=== PATIENT | female | born 1950 | race Caucasian/White ===

== ENCOUNTER 2018-05-10 06:21 | Day surgery (SDC) | payer MEDICARE, MEDICAID ==
--- NOTE | 2018-05-04 13:57 | HP ---
PREOPERATIVE HISTORY AND PHYSICAL: DATE OF ADMISSION/SURGERY: 05/10/18 [facility] DATE OF OFFICE VISIT/ENCOUNTER: 04/20/18 ATTENDING SURGEON: Yaneth Talavera MD.* (DICTATED BY DELLA MCMAHAN) PROCEDURE: Excision of mass, left thumb. CHIEF COMPLAINT: Mass, left thumb. HISTORY OF PRESENT ILLNESS: This is a 67-year-old female that complains of a lump on her left thumb that she noticed about a week ago. She says it is very painful. She rates the pain as 9/10, especially when she touches it. There was no injury that she recalls and she denies any tingling or numbness associated with it. She has not had any breaks in her skin. The cyst is very painful and she would like to have it removed surgically. The patient has AFib and is on Eliquis. She will remain on Eliquis throughout the perioperative period. She also has a history of Lxhiueg-Wbpft-Nwizm disease and takes Percocet 5/325 about 4 times a day. This was prescribed by Dr. Edwards. We will get Cardiology clearance from Dr. Guillermo prior to proceeding with surgical intervention. PAST MEDICAL HISTORY: 1. Hghsxvd-Xpdic-Rdkrw disease. 2. History of Graves' disease. 3. Hypothyroidism secondary to Graves' disease. 4. Atrial fibrillation. 5. Hypertension. 6. History of congestive heart failure. 7. Mitral valve disease. PAST SURGICAL HISTORY: 1. Appendectomy. 2. Oophorectomy. 3. . 4. Lumbar spine surgery. 5. Bilateral elbow lateral release. 6. Thyroidectomy. 7. Rotator cuff repair, right shoulder. 8. Tonsillectomy. 9. Nerve removed from right ankle. 10. Cosmetic orbital surgery. CURRENT MEDICATIONS: 1. Atenolol 25 mg daily. 2. Eliquis 5 mg twice a day. 3. Levothyroxine sodium 88 mcg daily. 4. Metamucil-Free and natural 43%, one tablespoon daily p.r.n. 5. Oxycodone/acetaminophen 5/325, two tabs b.i.d. 6. Potassium chloride ER 20 mEq, 2 tabs daily. 7. Torsemide 10 mg, 1 tab 4 to 5 times a week. 8. Vitamin B12 1000 mcg daily. 9. Vitamin D 50,000 units q. month. 10. Voltaren 1%, apply to affected area 3 times a day p.r.n. ALLERGIES: CAMPHOR, LATEX, COUGH SYRUPS, DILAUDID, LISINOPRIL, MOTHBALLS, PENICILLINS. FAMILY MEDICAL HISTORY: Cancer. SOCIAL HISTORY: The patient is disabled. She is a former smoker, she quit 7 years ago. Prior to that she smoked a pack per day since 1968. She denies recreational drug use. She drinks alcohol on occasion. 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 She also has atrial fibrillation. Review of systems is otherwise negative for cephalic, cardiovascular, respiratory, GI, , other musculoskeletal, skin, neurologic, endocrine, and hematologic symptoms. Infectious Disease: Negative for MRSA, hepatitis C, HIV. PHYSICAL EXAMINATION GENERAL: Well-developed, well-nourished 67-year-old female, in no acute distress. VITAL SIGNS: Height 5 feet 3 inches, weight 173 pounds. Blood pressure 134/80 , pulse rate 86. HEENT: Normocephalic, atraumatic. Pupils are equal, round, and reactive to light and accommodation. Extraocular movements are intact. Throat is clear. NECK: Supple. No palpable lymph nodes. PULMONARY: Lungs are clear to auscultation bilaterally. No wheezes, rales, or rhonchi. CARDIOVASCULAR: Regular rate and rhythm. S1, S2. No murmurs, rubs, or gallops. No edema. ABDOMEN: Positive bowel sounds. Soft, nontender. NEUROLOGICAL: Alert and oriented x3. Cranial nerves II through XII are intact. MUSCULOSKELETAL: On exam of her left thumb, there is a very tender mass overlying the proximal phalanx, between the IP and MP flexion creases. It is very tender to palpation. There is a negative Tinel's sign associated with it. She has good range of motion of her thumb at all 3 joints. Skin is intact. Neurovascular function is intact. IMAGING STUDIES: X-rays of her left thumb, AP, lateral, and oblique, show no bony abnormality. ASSESSMENT: Left thumb mass. PLAN: The patient is scheduled to undergo an excision mass, left thumb, with Dr. Talavera on 05/10/18. She will return to the office 10 days postop for followup and suture removal. She has Percocet as prescribed by Dr. Edwards that she will plan on using for postoperative pain management. DELLA MCMAHAN [id number]/[facility] #: [id number] MTDD
[~2018-05-10 06:21] MED LIST: Buffered Lidocaine 0.9% SYRIN* 5 ML/SYR SYRINGE INTRADERM ONE; Lactated Ringers 1000 ML Bag* 1,000 ML IV SCH
[2018-05-10] MEDS ORDERED: Lidocaine 1% INJ* 10 MG/ML 30 ML SDV ONE (07:24)
[2018-05-10] MEDS ORDERED: Midazolam* 1 MG/ML 2 ML VIAL (2 MG) ONE (07:37)
[2018-05-10] MEDS ORDERED: fentaNYL* 50 MCG/ML 2 ML VIAL (100 MCG VIAL) ONE (07:37)
[2018-05-10] MEDS ORDERED: Propofol* 10 MG/ML 20 ML BTL ONE (07:39)
[2018-05-10] MEDS ORDERED: Lidocaine 2% PF * 5 ML VIAL ONE (07:39)
[2018-05-10] MEDS ORDERED: Naloxone* 0.4 MG/ML 1 ML VIAL IV PRN (07:46)
[2018-05-10 08:32] VITALS: BP 108/52
--- NOTE | 2018-05-10 11:53 | OP ---
DATE OF OPERATION: 05/10/18 [facility] DATE OF : 54 SURGEON: Yaneth Talavera MD EMAIL MARKETING PROCESSOR: DELLA Henning. ANESTHESIA: Local MAC PRE-OP DIAGNOSIS: Left thumb mass. POST-OP DIAGNOSIS: Left thumb mass. OPERATIVE PROCEDURE: Removal of left thumb mass. ESTIMATED BLOOD LOSS: Zero. TOURNIQUET TIME: About 10 minutes INDICATIONS FOR PROCEDURE: Krysta is a 67-year-old female with a painful mass on her left thumb. She presents for removal. DESCRIPTION OF PROCEDURE: The patient was brought to the operating room, was given a sedation anesthetic and a digital block with 10 cc of 1% plain lidocaine. The skin of her left thumb and hand area was prepped and draped in the usual sterile fashion. Hand and forearm were exsanguinated and the tourniquet elevated to 250 mmHg. A diagonal incision was made, centered over the mass. We dissected bluntly through the subcutaneous tissue. The mass was not adherent to any of the surrounding tissue and was easily removed. It appeared to be a hemangioma and was sent for pathology. The wound was irrigated and skin edges reapproximated with 4-0 nylon suture. The wound was dressed with Xeroform, 4x4, Webril, and Maurice wrap. The patient tolerated the procedure well and was brought to the recovery room in good condition. [id number]/[facility] #: [id number] MTDD
== END 2018-05-10 08:28 | disposition home or self-care (01) ==
LOC: OREAST 06:21
PROVIDERS: ATTEND Orthopaedic Surgery
DX: R22.32 Localized swelling, mass and lump, left upper limb (principal); G60.0 Hereditary motor and sensory neuropathy; E03.8 Other specified hypothyroidism; I48.91 Unspecified atrial fibrillation; Z79.01 Long term (current) use of anticoagulants; I10 Essential (primary) hypertension; I34.9 Nonrheumatic mitral valve disorder, unspecified; Z87.891 Personal history of nicotine dependence
CPT/HCPCS: 88305; J2250; J2704; J3010

== ENCOUNTER 2019-08-15 17:18 | Emergency (ER) | payer MEDICARE, MEDICAID ==
--- NOTE | 2019-08-15 17:39 | ED ---
Abdominal Pain/Female - HPI Summary HPI Summary: 69 y/o F with hx diverticulitis and significant medication allergies presenting with severe, dull, LLQ abdominal pain that is worse with movement starting 3 days ago. She denies diarrhea. She reports abnormal bowel movements. She has been having small, soft bowels when she usually has large ones. Patient had an episode of diverticulitis back in May 2019. She was admitted and given Levaquin but had an allergic reaction. She went to the wall attendant in Jun 2019 and was told she isn't allergic to Flagyl. She reports an allergy to penicillin when she was 7 years old. She is followed by GI Dr. Bonilla. Patient's PCP Dr. Edwards called Dr. Bonilla's office and spoke with Dr. Butt who discussed with GI in [place] who recommended possibly Bactrim and clindamycin given her multiple allergies. Patient reporting severe pain so she was told to go to ER. She had labs and CT scan done today. Medications reviewed. Allergies reviewed. - History of Current Complaint Chief Complaint: EDAbdPain Stated Complaint: DIVERTICULITIS PER PT Time Seen by Provider: 08/15/19 17:26 Hx Obtained From: Patient, Medical Records, Other: - PCP Onset/Duration: Lasting Days - 3, Still Present Timing: Constant Severity Currently: Severe Pain Intensity: 9 Pain Scale Used: 0-10 Numeric Location: Discrete At: LLQ Character: Dull Aggravating Factor(s): Nothing Alleviating Factor(s): Nothing Associated Signs and Symptoms: Negative: Diarrhea Allergies/Adverse Reactions: Allergies Allergy/AdvReac Type Severity Reaction Status Date / Time camphor Allergy ANAPHYLACTI Verified 08/15/19 17:47 C dextromethorphan Allergy Altered Verified 08/15/19 17:47 Mental Status hydromorphone [From Dilaudid] Allergy See Comment Verified 08/15/19 17:47 latex Allergy ITCHY RASH Verified 08/15/19 17:47 levofloxacin Allergy Anaphylatic Verified 08/15/19 17:47 Shock lisinopril Allergy Coughing Verified 08/15/19 17:47 Penicillins Allergy Unknown Verified 08/15/19 17:47 Reaction Details ALL COUGH SYRUP Allergy HALLUCINATING, Uncoded 08/15/19 17:47 ROCKING AND GRINDING TEETH MOTH BALLS Allergy ANAPHYLACTIC Uncoded 08/15/19 17:47 SHOCK Home Medications: Home Medications Atenolol TAB* [Tenormin TAB*] 25 mg PO QPM 04/27/14 [History Confirmed 08/15/19] Levothyroxine TAB* [Synthroid TAB*] 88 mcg PO QAM 08/12/15 [History Confirmed ] Diclofenac Sodium [Voltaren] 1 applic TOPICAL BID PRN 01/27/18 [History Confirmed 08/15/19] Apixaban* [Eliquis*] 5 mg PO 0800,199905/03/18 [History Confirmed 08/15/19] Psyllium Husk/Aspartame [Metamucil Powder] 1 teasp PO QPM 05/03/18 [History Confirmed 08/15/19] Torsemide TAB* [Demadex*] 10 mg PO DAILY PRN 05/03/18 [History Confirmed ] Cholecalciferol (Vitamin D3) [Vitamin D3] 50,000 unit PO MONTHLY 09/20/18 [ History Confirmed 08/15/19] Cyanocobalamin TAB* [Vitamin B12 TAB*] 1,000 mcg PO DAILY 09/20/18 [History Confirmed 08/15/19] oxyCODONE/Acetamin 5/325 MG* [Percocet 5/325 TAB*] 1 tab PO Q8HR PRN 09/20/18 [ History Confirmed 08/15/19] Diltiazem TAB* [Cardizem 30 MG Tab*] 30 mg PO QAM 08/15/19 [History Confirmed ] Potassium Chlor TAB* [Klor Con ER TAB*] 40 meq PO BEDTIME 08/15/19 [History Confirmed 08/15/19] Sulfamethox/Trimethoprim DS* [Bactrim DS 800/160 TAB*] 1 tab PO BID 7 Days #14 tab 08/15/19 [Rx] clindamycin HCL [Clindamycin HCl] 450 mg PO TID 7 Days #63 capsule 08/15/19 [Rx] PMH/Surg Hx/FS Hx/Imm Hx Endocrine/Hematology History: Reports: Hx Thyroid Disease - HX OF SEVERE GRAVE' S DISEASE- THYROID TOXICOSIS- STATES HAD SURGERY FOR Denies: Hx Diabetes Cardiovascular History: Reports: Hx Congestive Heart Failure - X 1 -RELATED TO THYROID STORM IN ~2013, Hx Hypertension - ON MEDICATION FOR, Hx Valvular Heart Disease - "LEAKY VALVES", Other Cardiovascular Problems/Disorders - DR. 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 Denies: Hx Rheumatoid Arthritis, Hx Osteoporosis Sensory History: Reports: Hx Contacts or Glasses - GLASSES Opthamlomology History: Reports: Hx Contacts or Glasses - GLASSES Neurological History: Reports: Hx Nerve Disease - AWNRDLE-XGOTY-XIIVP DISEASE, Other Neuro Impairments/Disorders - BLQFKGL-RWYTA-AKEXP DISEASE Psychiatric History: Reports: Hx Depression - OFF AND ON- NO MEDICATION FOR AT THIS TIME - Cancer History Cancer Type, Location and Year: basal cell carcinoma Hx Chemotherapy: No Hx Radiation Therapy: No - Surgical History Surgery Procedure, Year, and Place: 08/07 AND 10/2017 - EYELID FOR GRAVES OPTIMOPATHY. Rt OVARY & FALLOPIAN TUBE REMOVED - CYST;. APPENDECTOMY;. 2/3 Lt OVARY REMOVED- CYST 2/3rds REMOVED;. C SECTION;. NERVE- REMOVED- RT INNER FOOT - (FOR DX OF NEURO MUSCULAR DISORDER known as Charcot Wendy Tooth Disease); . LSP - RUPTURED DISC REPAIR;. ANGEL ARMS- FOR TENNIS ELBOW;. TONSILECTOMY;. COMPLETE THYROIDECTOMY IN 2014;. basal cell ca removed from face. 2001 - Rt BREAST BIOSPY -BENIGN (NO CLIPS PLACED). 2013 Rt SHOULDER - RCT Hx Anesthesia Reactions: No - Immunization History Date of Tetanus Vaccine: unknown Date of Influenza Vaccine: [id number] Infectious Disease History: No Infectious Disease History: Denies: Traveled Outside the [place] in Last 30 Days - Family History Known Family History: Negative: Cardiac Disease, Diabetes Family History: Cancer - Social History Alcohol Use: Occasionally Alcohol Amount: 0-2 DRINKS WEEKLY Substance Use Type: Reports: None Hx Tobacco Use: Yes Smoking Status (MU): Former Smoker Type: Cigarettes Amount Used/How Often: 1 PPD X 40+ YEARS Length of Time of Smoking/Using Tobacco: 45 YEARS Have You Smoked in the Last Year: No Review of Systems Negative: Fever Positive: Abdominal Pain, Other - abnormal bowel movements. Negative: Diarrhea All Other Systems Reviewed And Are Negative: Yes Physical Exam - Summary Physical Exam Summary: Constitutional: Well-developed, Well-nourished, Alert. (-) Distressed Skin: Warm, Dry HENT: Normocephalic; Atraumatic Eyes: Conjunctiva normal Neck: Musculoskeletal ROM normal neck. (-) JVD, (-) Stridor, (-) Nuchal rigidity Cardio: Rhythm regular, tachycardic, Heart sounds normal; Intact distal pulses; Radial pulses are 2+ and symmetric. (-) Murmur Pulmonary/Chest wall: Effort normal. (-) Respiratory distress, (-) Wheezes, (-) Rales Abd: Soft, LLQ tenderness, (-) Distension, (-) Guarding, (-) Rebound Musculoskeletal: (-) Edema Lymph: (-) Cervical adenopathy Neuro: Alert, Oriented x3 Psych: Mood and affect Normal Triage Information Reviewed: Yes Vital Signs On Initial Exam: Initial Vitals Temp Pulse Resp BP Pulse Ox 98.3 F 117 19 117/81 97 08/15/19 17:20 08/15/19 17:20 08/15/19 17:20 08/15/19 17:20 08/15/19 17:20 Vital Signs Reviewed: Yes Procedures - Sedation Patient Received Moderate/Deep Sedation with Procedure: No Diagnostics - Vital Signs Vital Signs Temp Pulse Resp BP Pulse Ox 08/15/19 17:20 98.3 F 117 19 117/81 97 - Laboratory Lab Statement: Any lab studies that have been ordered have been reviewed, and results considered in the medical decision making process. Abdominal Pain Fem Course/Dx - Course Course Of Treatment: 69 y/o F w diverticulitis presents with abdominal pain. - d/w her PCP Dr. Edwards, the patient evaluated secondary to pain. CT shows a, located over cellulitis. Dr. Edwards spoke with GI who recommended clindamycin and Bactrim. She was offered PO dose of Augmentin here but declined secondary to unknown penicillin allergy. Patient is well-appearing, tolerating by mouth, afebrile. Patient tolerating PO and well appearing so can go home on oral abx, given first dose here. - Diagnoses Provider Diagnoses: Diverticulitis Discharge ED - Sign-Out/Discharge Documenting (check all that apply): Patient Departure - Discharge Plan Condition: Stable Disposition: HOME Prescriptions: clindamycin HCL [Clindamycin HCl] 450 mg PO TID 7 Days #63 capsule Sulfamethox/Trimethoprim DS* [Bactrim DS 800/160 TAB*] 1 tab PO BID 7 Days #14 tab Patient Education Materials: Diverticulitis (ED) Referrals: Marlin Edwards MD [Primary Care Provider] - Additional Instructions: You were seen in the emergency department for diverticulitis. Please take Bactrim twice a day for 7 days. Please take clindamycin 3 times a day for 7 days. Please follow up with GI. Please follow up with your primary care doctor in next 2-3 days and return to emergency department for worsening pain, fevers, inability to eat or drink, or concerning symptoms. It was a pleasure taking care of you today. - Billing Disposition and Condition Condition: STABLE Disposition: Home - Attestation Statements Document Initiated by Fred: Yes Documenting Scribe: Eun Anderson Provider For Whom Fred is Documenting (Include Credential): Leo Rodrigues MD Scribe Attestation: IEun, scribed for Leo Rodrigues MD on 08/15/19 at 2002. Scribe Documentation Reviewed: Yes Provider Attestation: The documentation as recorded by the Eun degroot accurately reflects the service I personally performed and the decisions made by Leo pride MD Status of Scribe Document: Viewed
[2019-08-15] MEDS ORDERED: Amoxicillin/Clavulanate TAB* 875 MG PO ONE (17:45)
[2019-08-15] MEDS ORDERED: Clindamycin CAP* 150 MG PO ONE (18:12)
[2019-08-15] MEDS ORDERED: Sulfamethox/Trimethoprim DS 800/160* TAB PO ONE (18:12)
--- OUTSIDE RECORDS SUMMARY | 2019-08-15 18:25 | XMS REPORT | Continuity of Care Document ---
:1950 External Reference #:[id number] Author Name Destin Alvarez MD (transmitted by agent of provider Jina You) Address [address] [place] [address] Care Team Providers Name Role Phone Marlin Edwards MD - Internal Medicine Care Team Information Manager Project Problems Active Problems Provider Date Essential hypertension Destin Alvarez MD Onset: 07/07/2019 Anaphylactic reaction due to adverse Destin Alvarez MD Onset: 2019 effect of correct drug or medicament properly administered, subsequent encounter Allergy status to other drugs, medicaments Destin Alvarez MD Onset: and biological substances status Social History Type Date Description Comments Sex Unknown Allergies, Adverse Reactions, Alerts Active Allergies Reaction Severity Comments Date Penicillin 07/07/2019 Camphor 07/07/2019 Lisinopril 07/07/2019 Latex 07/07/2019 Bandaids 07/07/2019 Mothballs 07/07/2019 ALL Cough Syrups 07/07/2019 Dilaudid no effect 07/07/2019 Medications Active Medications SIG Qnty Indications Ordering Provider Date Metronidazole for a supervised 120ml Z88.8 Destin Livingston 07/07/2019 Benzoate/Syrspend SF oral challenge in MD Antonio PH4 the office. 50mg/ml Suspension Rec Levothyroxine Sodium Unknown 88mcg Tablets Torsemide Marlin Edwards MD 10mg Tablets Klor-Con Marlin Edwards MD 20Meq Packet Diltiazem HCL Maghaydah, 30mg An Hwang MD Tablets Atenolol 1 qd Unknown 25mg Tablets Eliquis 1 tab bid Unknown 5mg Tablets Vitamin B-12 take one Unknown 2500mcg capsule/tablet Tablets Sub daily by mouth sublingually M,W,F Metamucil Fiber prn and or 5x a Unknown 51.7% week Packet Voltaren prn pain Unknown 1% Gel Oxycodone-Acetaminop Take One Tablet By Unknown hen Mouth Three Times A 5-325mg Tablets Day May Repeat 1 Time. . Maximum Daily Dose 3 Immunizations Description No Information Available Vital Signs Date Vital Result Comment 07/19/2019 1:05pm BP Systolic 110 mmHg BP Diastolic 74 mmHg Height 62 inches 5'2" Weight 172.00 lb BMI (Body Mass Index) 31.5 kg/m2 Heart Rate 99 /min Respiratory Rate 16 /min Body Temperature 96.7 F O2 % BldC Oximetry 99 % 07/07/2019 2:16pm BP Systolic 127 mmHg BP Diastolic 68 mmHg Height 62 inches 5'2" Weight 172.00 lb BMI (Body Mass Index) 31.5 kg/m2 Heart Rate 111 /min Respiratory Rate 18 /min Body Temperature 97.0 F O2 % BldC Oximetry 95 % Results Test Acquired Date Facility Test Result H/L Range Note Order 07/19/2019 [facility] < pending> tion Procedures Date Code Description Status 07/19/2019 10816 Ingestion Challenge Test Sequential & Incremental Completed Medical Devices Description No Information Available Encounters Type Date Location Provider Dx Diagnosis Office Visit 07/19/2019 Monica Alvarez, T88.6xxD Anaphyl reaction 4:30p MD due to advrs eff drug/med prop admin, subs Office Visit 07/07/2019 Monica Alvarez, Z88.8 Allergy status to 2:00p MD oth drug/meds/biol subst status Assessments Date Code Description Provider 07/19/2019 T88.6xxD Anaphylactic reaction due to adverse Destin Alvarez MD effect of correct drug or medicament properly administered, subsequent encounter 07/07/2019 Z88.8 Allergy status to other drugs, Destin Alvarez MD medicaments and biological substances status Plan of Treatment No Information Available Functional Status Description No Information Available Mental Status Description No Information Available Referrals Description No Information Available
--- OUTSIDE RECORDS SUMMARY | 2019-08-15 18:25 | XMS REPORT | Continuity of Care Document ---
:1950 External Reference #:[id number] Author Name Yaneth Narvaez M.D. 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 Onset: 07/21/2013 Electrocardiogram abnormal An Guillermo M.D. Onset: 07/21/2013 Benign essential hypertension An Guillermo M.D. Onset: 07/21/2013 Preoperative cardiovascular examination An Guillermo M.D. Onset: Pre-surgery evaluation An Guillermo M.D. Onset: 11/09/2013 Mitral valve disorder An Guillermo M.D. Onset: 11/09/2013 Rheumatic disease of tricuspid valve An Guillermo M.D. 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 Type is not know. Disorder of shoulder Leonid Omer M.D. Onset: 11/28/2014 Chronic atrial fibrillation DELLA Rivas Onset: 02/14/2015 Disorder of lung Brittny Ruffin MD Onset: 12/03/2015 Disturbance in sleep behavior Brittny Ruffin MD Onset: 12/03/2015 Ex-smoker Brittny Ruffin MD Onset: 02/18/2016 Social History Type Date Description Comments Sex Unknown Tobacco Use Start: Unknown End: Former Cigarette Smoker Smoked for 43 years Unknown a pack a day Cigarette Use Quit 8 Years Ago Smoking Status Reviewed: 07/27/19 Former Cigarette Smoker Smoked for 43 years a pack a day ETOH Use Occasionally consumes wine Tobacco Use Start: Unknown End: Patient is a former Unknown smoker Recreational Drug Use Denies Drug Use Exercise Type/Frequency Exercises rarely Walking Allergies, Adverse Reactions, Alerts Active Allergies Reaction Severity Comments Date Penicillins 06/27/2013 Camphor Diff. breathing, rash Severe 06/27/2013 ALL Cough Syrups Hallucinations 06/27/2013 Lisinopril cough all the time 01/19/2014 Latex Urticaria Severe 06/12/2014 Mothballs 01/01/2017 Dilaudid does not have any 10/04/2017 effect on the patient Flagyl Dizziness, Sharp right arm Moderate 06/06/2019 pain, falling Levaquin Dizziness, Falling, Sharp Moderate 06/06/2019 right arm pain Medications Active Medications SIG Qnty Indications Ordering Date Provider Cardizem 1 by mouth qd 90tabs Qutaybeh S. 06/06/2019 30mg Tablets Evon Guillermo Voltaren apply to left 1tube G60.0 Wagner Gandhi, 01/20/2018 1% Gel thumb three times M.D. a day as needed Eliquis take 1 by mouth 60tabs Essence Corey, 01/16/2018 5mg Tablets twice a day N.P. Torsemide 1 by mouth 4-5x 30tabs Qutaybeh S. 02/22/2015 10mg Tablets week. Evon Guillermo Atenolol 1 by mouth once 60tabs Qutaybeh S. 25mg Tablets every night Evon Guillermo Vitamin D 1 by mouth once 12caps Unknown (Ergocalciferol) every month 23264Ixlu Capsules Levothyroxine Sodium 1 by mouth daily Unknown 88mcg Tablets Potassium Chloride ER 2 by mouth once a Unknown day (only takes 20Meq Tablets ER with torsemide) Metamucil Free & 1 tablespoon at Unknown Natural night mixed w/ 43% Powder water daily prn Tylenol 500 mg 2 caplets Unknown prn Oxycodone-Acetaminoph Take 1/2 Tablet By Unknown en Mouth as Needed 5-325mg Tablets For Cough Medications Administered in Office Medication SIG Qnty Indications Ordering Provider Date Depomedrol 40MG Yaneth Narvaez M.D. 07/27/2019 Injection Depomedrol 40MG Yaneth Narvaez M.D. 07/27/2019 Injection Depomedrol 40MG Emely Bitting, [facility] 02/27/2019 Injection Depomedrol 40MG Emely Bitting, [facility] 02/27/2019 Injection Depomedrol 40MG Wagner Gandhi M.D. 02/07/2019 Injection Depomedrol 40MG Emely Bitting, [facility] 02/06/2019 Injection Depomedrol 40MG Emely Whittington, [facility] 02/06/2019 Injection Depomedrol 40MG Wagner Gandhi M.D. 10/18/2018 Injection Depomedrol 40MG Wagner Gandhi M.D. 07/21/2018 Injection Depomedrol 40MG Yaneth Narvaez M.D. 06/23/2018 Injection Depomedrol 40MG Yaneth Narvaez M.D. 06/23/2018 Injection Depomedrol 40MG Emely Meshating, [facility] 05/25/2018 Injection Depomedrol 80MG Leonid Omer M.D. 10/06/2013 Injection Depomedrol 80MG Leonid Omer M.D. 04/28/2013 Injection Immunizations Description No Information Available Vital Signs Date Vital Result Comment 07/27/2019 2:39pm Height 62 inches 5'2" Weight 175.00 lb Heart Rate 82 /min BP Systolic 128 mmHg BP Diastolic 78 mmHg Respiratory Rate 18 /min Pain Level 8 Left-8 right-7 O2 % BldC Oximetry 98 % BMI (Body Mass Index) 32.0 kg/m2 07/01/2019 1:19pm Height 62 inches 5'2" Weight 172.00 lb Heart Rate 92 /min BP Systolic Sitting 110 mmHg BP Diastolic Sitting 70 mmHg O2 % BldC Oximetry 97 % BMI (Body Mass Index) 31.5 kg/m2 Neck Circumference in inches 17 Results Description No Information Available Procedures Date Code Description Status 07/27/2019 88341 Inject/Drain Joint/Bursa Major W/O US Completed 07/20/2019 45562 Holter Monitor Review (24 hr)dr review & interp only Completed 07/18/2019 86272 ECG Monitor/Recording W/Visual Superimposition Completed Scanning 07/18/2019 98240 ECG Monitor/Recording W/Visual Superimposition Completed Scanning 06/06/2019 68290 EKG Tracing & Interpretation Completed 05/27/2019 59052 Holter Monitor Review (24 hr)dr review & interp only Completed 05/25/2019 47757 ECG Monitor/Recording W/Visual Superimposition Completed Scanning 05/25/2019 57750 ECG Monitor/Recording W/Visual Superimposition Completed Scanning 03/13/2019 33863 ECHO Transthoracic, Real-Time 2D With Doppler And Completed Color Flow 03/13/2019 94617 ECHO Transthoracic, Real-Time 2D With Doppler And Completed Color Flow 02/27/2019 88659 Inject Tendon Sheath Or Ligament Aponeurosis Eg Completed Plantar Fascia 02/27/2019 48802 Inject Tendon Sheath Or Ligament Aponeurosis Eg Completed Plantar Fascia 02/07/2019 75963 Injection,Anesthetic Agent, Other Peripheral Nerve Completed Branch 02/06/2019 80881 Inject Tendon Sheath Or Ligament Aponeurosis Eg Completed Plantar Fascia 02/06/2019 37225 Inject Tendon Sheath Or Ligament Aponeurosis Eg Completed Plantar Fascia 11/25/2017 605272860 Diabetic Retinal Eye Exam Completed 09/08/2017 708599144 Diabetic Retinal Eye Exam Completed 02/05/2017 533993429 Diabetic Retinal Eye Exam Completed 06/01/2014 68163588 Mammogram Completed Medical Devices Description No Information Available Encounters Type Date Location Provider Dx Diagnosis Office Visit 07/27/2019 [facility] Yaneth M75.42 Impingement 2:00p at [place] Narvaez M.D. syndrome of left shoulder M75.41 Impingement syndrome of right shoulder Office Visit 07/01/2019 2:30p [facility] Brittny Ruffin R06.83 [facility] R09.02 Hypoxemia Office Visit 06/06/2019 9:20a [place] Baer E66.9 Obesity, Cardiology Evon Guillermo unspecified I48.21 Permanent atrial fibrillation I36.1 Nonrheumatic tricuspid (valve) insufficiency R94.31 Abnormal electrocardiogram [ECG] [EKG] Office Visit 03/31/2019 2:00p [facility] Roxana Shen, G60.0 [facility] [place] and sensory neuropathy Office Visit 03/27/2019 1:30p Pulmonology And Brittny Ruffin, R05 [facility] [place] J98.4 Other disorders of lung Assessments Date Code Description Provider 07/27/2019 M75.42 Impingement syndrome of left shoulder Yaneth Narvaez M.D. 07/27/2019 M75.41 Impingement syndrome of right shoulder Yaneth Narvaez M.D. 07/20/2019 I48.91 Unspecified atrial fibrillation An Guillermo M.D. 07/18/2019 I48.21 Permanent atrial fibrillation An Guillermo M.D. 07/18/2019 I48.21 Permanent atrial fibrillation Nurse Visit cc 07/01/2019 R06.83 Snoring Brittny Ruffin MD 07/01/2019 R09.02 Hypoxemia Brittny Ruffin MD 06/06/2019 E66.9 Obesity, unspecified An Guillermo M.D. 06/06/2019 I48.21 Permanent atrial fibrillation An Guillermo M.D. 06/06/2019 I36.1 Nonrheumatic tricuspid (valve) An Guillermo M.D. insufficiency 06/06/2019 R94.31 Abnormal electrocardiogram [ECG] [EKG] An Guillermo M.D. 05/27/2019 R42 Dizziness and giddiness An Guillermo M.D. 05/27/2019 I48.21 Permanent atrial fibrillation An Guillermo M.D. 05/25/2019 I48.21 Permanent atrial fibrillation An Guillermo M.D. 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 neuropathy 03/27/2019 R05 Cough Brittny Ruffin MD 03/27/2019 J98.4 Other disorders of lung Brittny Ruffin MD 03/13/2019 I50.9 Heart failure, unspecified An Guillermo M.D. 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 neuropathy 02/06/2019 M65.332 Trigger finger, left middle finger Emely Bitting, [facility] 02/06/2019 M65.352 Trigger finger, left little finger Emely Bitting, [facility] Plan of Treatment Future Appointment(s):08/08/2019 11:30 am - Brittny Ruffin MD at [facility]09/11/2019 1:00 pm - Yaneth Narvaez M.D. at [facility] at [id number]/27/2019 1:30 pm - Roxana Shen M.D. at [facility]07/27/2019 - Yaneth Narvaez M.D.M75.42 Impingement syndrome of left shoulderNew Therapy:Physical TherapyFollow up:Follow up: 6-8 rbuvjD90.41 Impingement syndrome of right shoulder Functional Status Description No Information Available Mental Status Description No Information Available Referrals Description No Information Available
--- OUTSIDE RECORDS SUMMARY | 2019-08-15 18:25 | XMS REPORT | Continuity of Care Document ---
:1950 External Reference #:[id number] Author Name Yaneth Narvaez M.D. Address [address] [place] [address] Care Team Providers Name Role Phone Marlin Edwards MD - Internal Medicine Care Team Information Stress Test Technician [phone] Problems Active Problems Provider Date Atrial fibrillation An Guillermo M.D. Onset: 07/21/2013 Electrocardiogram abnormal An Guillermo M.D. Onset: 07/21/2013 Benign essential hypertension An Guillermo M.D. Onset: 07/21/2013 Preoperative cardiovascular examination An Guillermo M.D. Onset: Pre-surgery evaluation An Guillermo M.D. Onset: 11/09/2013 Mitral valve disorder An Guillermo M.D. Onset: 11/09/2013 Rheumatic disease of tricuspid valve An Guillermo M.D. 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 Type is not know. Disorder of shoulder Leonid Omer M.D. Onset: 11/28/2014 Chronic atrial fibrillation DELLA Rivas Onset: 02/14/2015 Disorder of lung Brittny Ruffin MD Onset: 12/03/2015 Disturbance in sleep behavior Brittny Ruffin MD Onset: 12/03/2015 Ex-smoker Birttny Ruffin MD Onset: 02/18/2016 Social History Type [...] Voltaren apply to left 1tube G60.0 Wagner Hiram, 01/20/2018 1% Gel thumb three times M.D. [...] mouth once 12caps Unknown (Ergocalciferol) every month 62991Umkn Capsules Levothyroxine Sodium 1 by mouth daily [...] Qnty Indications Ordering Provider Date Depomedrol 40MG Emely Bitting, [facility] 02/27/2019 Injection Depomedrol 40MG Emely Bitting, [facility] 02/27/2019 Injection Depomedrol 40MG Wagner Gandhi M.D. 02/07/2019 Injection Depomedrol 40MG Emely Bitting, [facility] 02/06/2019 Injection Depomedrol 40MG Emely Bitting, [facility] 02/06/2019 Injection Depomedrol 40MG Wagner Gandhi M.D. 10/18/2018 Injection Depomedrol 40MG Wagner Gandhi M.D. 07/21/2018 Injection Depomedrol 40MG Yaneth Narvaez M.D. 06/23/2018 Injection Depomedrol 40MG Yaneth Narvaez M.D. 06/23/2018 Injection Depomedrol 40MG Emely Bitting, [facility] 05/25/2018 Injection Depomedrol 80MG Leonid Omer M.D. [...] Information Available Procedures Date Code Description Status 07/20/2019 27686 Holter Monitor Review (24 hr) review & interp only Completed 07/18/2019 21741 ECG Monitor/Recording W/Visual Superimposition Completed Scanning 06/06/2019 04677 EKG Tracing & Interpretation Completed 05/27/2019 99079 Holter Monitor Review (24 hr)dr delcid & nickyp only Completed 05/25/2019 21795 ECG Monitor/Recording W/Visual Superimposition Completed Scanning 05/25/2019 39063 ECG Monitor/Recording W/Visual Superimposition Completed Scanning 03/13/2019 57668 ECHO Transthoracic, Real-Time 2D With Doppler And Completed Color Flow 03/13/2019 49427 ECHO Transthoracic, Real-Time 2D With Doppler And Completed Color Flow 02/27/2019 60060 Inject Tendon Sheath Or Ligament Aponeurosis Eg Completed Plantar Fascia 02/27/2019 79721 Inject Tendon Sheath Or Ligament Aponeurosis Eg Completed Plantar Fascia 02/07/2019 29881 Injection,Anesthetic Agent, Other Peripheral Nerve Completed Branch 02/06/2019 53966 Inject Tendon Sheath Or Ligament Aponeurosis Eg Completed Plantar Fascia 02/06/2019 51331 Inject Tendon Sheath Or Ligament Aponeurosis Eg Completed Plantar Fascia 11/25/2017 894959377 Diabetic Retinal Eye Exam Completed 09/08/2017 694190051 Diabetic Retinal Eye Exam Completed 02/05/2017 125411446 Diabetic Retinal Eye Exam Completed 06/01/2014 43546203 Mammogram Completed Medical Devices Description No Information Available Encounters Type Date Location Provider Dx Diagnosis Office Visit 07/27/2019 [facility] Yaneth M75.42 Impingement 2:00p at [place] Narvaez M.D. syndrome of left shoulder M75.41 Impingement syndrome of right shoulder Office Visit 07/01/2019 2:30p [facility] Brittny Ruffin, R06.83 [facility] R09.02 Hypoxemia Office Visit 06/06/2019 9:20a [place] An Baer E66.9 Obesity, Cardiology Evon Guillermo unspecified I48.21 Permanent atrial fibrillation I36.1 Nonrheumatic tricuspid (valve) insufficiency R94.31 Abnormal electrocardiogram [ECG] [EKG] Office Visit 03/31/2019 2:00p [place] [facility] Roxana Ac, G60.0 [facility] [...] 07/18/2019 I48.21 Permanent atrial fibrillation Nurse Visit 07/18/2019 I48.91 Unspecified atrial fibrillation Nurse Visit 07/01/2019 R06.83 Snoring Brittny Ruffin MD 07/01/2019 [...] 05/25/2019 I48.21 Permanent atrial fibrillation Nurse Visit 05/25/2019 R42 Dizziness and giddiness Nurse Visit 03/31/2019 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 neuropathy 03/27/2019 R05 Cough Brittny Ruffin MD 03/27/2019 J98.4 Other disorders of lung Brittny Ruffin MD 03/13/2019 I50.9 Heart failure, unspecified An Guillermo M.D. 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 neuropathy 02/06/2019 M65.332 Trigger finger, left middle finger Emely Bitting, [facility] 02/06/2019 M65.352 Trigger finger, left little finger Emely Bitting, [facility] Plan of Treatment Future Appointment(s):08/11/2019 2:30 pm - Yaneth Herrera NP at [facility]10/27/2019 1:30 pm - Roxana Shen M.D. at [place] [facility]07/27/2019 - Yaneth Narvaez M.D.M75.42 Impingement syndrome of left shoulderNew Therapy:Physical TherapyFollow up: Follow up: 6-8 rvgtgI88.41 Impingement syndrome of right shoulder Functional Status Description No Information Available Mental Status Description No Information Available Referrals Description No Information Available
--- OUTSIDE RECORDS SUMMARY | 2019-08-15 18:25 | XMS REPORT | Continuity of Care Document ---
:1950 External Reference #:[id number] Author Name Nurse Visit cc (transmitted by agent of provider Pauline Lopez) Address [address] [facility] [address] [place] [address] Care Team Providers Name Role Phone Marlin Edwards MD - Internal Medicine Care Team Information Ash Collector [phone] Problems Active Problems Provider Date Atrial fibrillation [...] qd 90tabs Qutaybeh S. 06/06/2019 30mg Tablets vEon Guillermo Voltaren apply to left 1tube G60.0 [...] mouth once 12caps Unknown (Ergocalciferol) every month 35442Vcch Capsules Levothyroxine Sodium 1 by mouth daily [...] Narvaez M.D. 07/27/2019 Injection Depomedrol 40MG Emely Bitsterling, [facility] 02/27/2019 Injection Depomedrol 40MG Emely Bitting, [facility] 02/27/2019 Injection Depomedrol 40MG Wagner Gandhi M.D. 02/07/2019 Injection Depomedrol 40MG Emely Bitting, [facility] 02/06/2019 Injection Depomedrol 40MG Emely Zimmerting, [facility] 02/06/2019 Injection Depomedrol 40MG Wagner Gandhi M.D. 10/18/2018 Injection Depomedrol 40MG Wagner Gandhi M.D. 07/21/2018 Injection Depomedrol 40MG Yaneth Narvaez M.D. 06/23/2018 Injection Depomedrol 40MG Yaneth Narvaez M.D. 06/23/2018 Injection Depomedrol 40MG Emely Whittington, [facility] 05/25/2018 Injection Depomedrol 80MG Leonid Omer M.D. [...] Available Procedures Date Code Description Status 07/20/2019 80106 Holter Monitor Review (24 hr)dr review & interp only Completed 07/18/2019 34033 ECG Monitor/Recording W/Visual Superimposition Completed Scanning 07/18/2019 80544 ECG Monitor/Recording W/Visual Superimposition Completed Scanning 06/06/2019 62291 EKG Tracing & Interpretation Completed 05/27/2019 42358 Holter Monitor Review (24 hr)dr review & interp only Completed 05/25/2019 36625 ECG Monitor/Recording W/Visual Superimposition Completed Scanning 05/25/2019 27060 ECG Monitor/Recording W/Visual Superimposition Completed Scanning 03/13/2019 16658 ECHO Transthoracic, Real-Time 2D With Doppler And Completed Color Flow 03/13/2019 68287 ECHO Transthoracic, Real-Time 2D With Doppler And Completed Color Flow 02/27/2019 91845 Inject Tendon Sheath Or Ligament Aponeurosis Eg Completed Plantar Fascia 02/27/2019 07374 Inject Tendon Sheath Or Ligament Aponeurosis Eg Completed Plantar Fascia 02/07/2019 38723 Injection,Anesthetic Agent, Other Peripheral Nerve Completed Branch 02/06/2019 37879 Inject Tendon Sheath Or Ligament Aponeurosis Eg Completed Plantar Fascia 02/06/2019 35950 Inject Tendon Sheath Or Ligament Aponeurosis Eg Completed Plantar Fascia 11/25/2017 193612397 Diabetic Retinal Eye Exam Completed 09/08/2017 001906845 Diabetic Retinal Eye Exam Completed 02/05/2017 956089930 Diabetic Retinal Eye Exam Completed 06/01/2014 77793864 Mammogram Completed Medical Devices Description No Information Available Encounters Type Date Location Provider Dx Diagnosis Office Visit 07/01/2019 [facility] Brittny Ruffin MD R06.83 [facility] 2:[facility] R09.02 Hypoxemia Office Visit 06/06/2019 9:20a [place] An SQian E66.9 Obesity, Cardiology Evon Guillermo unspecified I48.21 Permanent atrial fibrillation I36.1 Nonrheumatic tricuspid (valve) insufficiency R94.31 Abnormal electrocardiogram [ECG] [EKG] Office Visit 03/31/2019 2:00p [place] [facility] Roxana Shen, G60.0 [facility] [place] and sensory neuropathy Office Visit 03/27/2019 1:30p [facility] [place] [facility] [place] J98.4 [...] ECHO Schedule 03/13/2019 I48.21 Permanent atrial fibrillation [place] ECHO Schedule 03/13/2019 I34.0 Nonrheumatic mitral (valve) [place] ECHO Schedule insufficiency 03/13/2019 I36.1 Nonrheumatic tricuspid (valve) [place] [facility] Schedule insufficiency 02/27/2019 M65.331 Trigger finger, right middle finger Emely Bitting, [facility] 02/27/2019 M65.351 Trigger finger, right little finger Emely Bitting, [facility] 02/07/2019 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 neuropathy 02/06/2019 M65.332 Trigger finger, left middle finger Emely Bitting, [facility] 02/06/2019 M65.352 Trigger finger, left little finger Emely Bitting, [facility] Plan of Treatment Future Appointment(s):09/11/2019 1:00 pm - Yaneth Narvaez M.D. at [place] [facility] at [id number]/11/2019 2:30 pm - Yaneth Herrera NP at [facility]10/27/2019 1:30 pm - Roxana Shen M.D. at [place] [facility]07/27/2019 - Yaneth Narvaez M.D.M75.42 Impingement syndrome of left shoulderNew Therapy:Physical TherapyFollow up: Follow up: 6-8 vspahO00.41 Impingement syndrome of right shoulder Functional Status Description No Information Available Mental Status Description No Information Available Referrals Description No Information Available
--- OUTSIDE RECORDS SUMMARY | 2019-08-15 18:25 | XMS REPORT | Continuity of Care Document ---
:1950 External Reference #:[id number] Author Name Destin Alvarez MD Address [address] [facility] [address] [place] [address] Care Team Providers Name Role Phone Marlin Edwards MD - Internal Medicine Care Team Information Gliding Pilot Instructor [phone] Problems Active Problems Provider Date Essential hypertension Destin Alvarez MD Onset: 07/07/2019 Allergy status to other drugs, medicaments Destin [...] Available Vital Signs Date Vital Result Comment 07/07/2019 2:16pm BP Systolic 127 mmHg BP Diastolic 68 mmHg Height 62 inches 5'2" Weight 172.00 lb BMI (Body Mass Index) 31.5 kg/m2 Heart Rate 111 /min Respiratory Rate 18 /min Body Temperature 97.0 F O2 % BldC Oximetry 95 % Results Description No Information Available Procedures Description No Information Available Medical Devices Description No Information Available Encounters Type Date Location Provider Dx Diagnosis Office Visit 07/07/2019 [place] Destin Alvarez Z88.8 Allergy status to 2:00p oth drug/meds/biol subst status Assessments Date Code Description Provider 07/07/2019 Z88.8 Allergy status to other drugs, medicaments Destin Alvarez MD and biological substances status Plan of Treatment Future Appointment(s):07/19/2019 1:20 pm - Injection 1 at [facility]307/07/2019 - Destin Alvarez MDZ88.8 Allergy status to other drugs, medicaments and biological substances statusNew Medication:Metronidazole Benzoate/Syrspend SF PH4 50 mg/ml - for a supervised oral challenge in the office. Functional Status Description No Information Available Mental Status Description No Information Available Referrals Description No Information Available
--- OUTSIDE RECORDS SUMMARY | 2019-08-15 18:25 | XMS REPORT | Continuity of Care Document ---
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 07/27/2019 Injection Depomedrol 40MG Emely Whittington, [facility] 02/27/2019 Injection Depomedrol 40MG Emely Whittington, [facility] 02/27/2019 Injection Depomedrol 40MG Wagner Gandhi M.D. 02/07/2019 Injection Depomedrol 40MG Emely Meshating, [facility] 02/06/2019 Injection Depomedrol 40MG Emely Whittington, [facility] 02/06/2019 Injection Depomedrol 40MG Wagner Gandhi M.D. 10/18/2018 Injection Depomedrol 40MG Wagner Gandhi M.D. 07/21/2018 Injection Depomedrol 40MG Yaneth Narvaez M.D. 06/23/2018 Injection Depomedrol 40MG Yaneth Narvaez M.D. 06/23/2018 Injection Depomedrol 40MG Emely Whittington, [facility] 05/25/2018 Injection Depomedrol 80MG Leonid Omer M.D. 10/06/2013 Injection Depomedrol 80MG Leonid Omer M.D. 04/28/2013 Injection Immunizations Description No Information Available Vital Signs Date Vital Result Comment 08/08/2019 11:21am Height 62 inches 5'2" Weight 176.00 lb Heart Rate 79 /min BP Systolic Sitting 122 mmHg BP Diastolic Sitting 78 mmHg O2 % BldC Oximetry 97 % BMI (Body Mass Index) 32.2 kg/m2 07/27/2019 2:39pm Height 62 inches 5'2" Weight 175.00 lb Heart Rate 82 /min BP Systolic 128 mmHg BP Diastolic 78 mmHg Respiratory Rate 18 /min Pain Level 8 Left-8 right-7 O2 % BldC Oximetry 98 % BMI (Body Mass Index) 32.0 kg/m2 Results Description No Information Available Procedures Date Code Description Status 07/31/2019 31089 Sleep Study Unattended,HRT Rate,Oxygen Sat,Resp Completed Effort/Airflow 07/27/2019 85263 Inject/Drain Joint/Bursa Major W/O US Completed 07/20/2019 71558 Holter Monitor Review (24 hr)dr review & interp only Completed 07/18/2019 16657 ECG Monitor/Recording W/Visual Superimposition Completed Scanning 07/18/2019 29097 ECG Monitor/Recording W/Visual Superimposition Completed Scanning 06/06/2019 94136 EKG Tracing & Interpretation Completed 05/27/2019 06888 Holter Monitor Review (24 hr)dr review & interp only Completed 05/25/2019 38539 ECG Monitor/Recording W/Visual Superimposition Completed Scanning 05/25/2019 49146 ECG Monitor/Recording W/Visual Superimposition Completed Scanning 03/13/2019 41091 ECHO Transthoracic, Real-Time 2D With Doppler And Completed Color Flow 03/13/2019 84872 ECHO Transthoracic, Real-Time 2D With Doppler And Completed Color Flow 02/27/2019 17315 Inject Tendon Sheath Or Ligament Aponeurosis Eg Completed Plantar Fascia 02/27/2019 15073 Inject Tendon Sheath Or Ligament Aponeurosis Eg Completed Plantar Fascia 11/25/2017 102523601 Diabetic Retinal Eye Exam Completed 09/08/2017 261311743 Diabetic Retinal Eye Exam Completed 02/05/2017 731469477 Diabetic Retinal Eye Exam Completed 06/01/2014 38998709 Mammogram Completed Medical Devices Description No Information Available Encounters Type Date Location Provider Dx Diagnosis Office Visit 08/08/2019 [facility] Brittny Ruffin, G47.33 Obstructive sleep 11:30a [facility] (adult) [place] (pediatric) Office Visit 07/27/2019 [facility] Yaneth M75.42 Impingement 2:00p at [facility] [...] electrocardiogram [ECG] [EKG] Office Visit 03/31/2019 2:00p [facility] Roxana Shen, 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 07/27/2019 M75.41 Impingement syndrome of right shoulder Yaneth Narvaez M.D. 07/20/2019 I48.91 Unspecified atrial fibrillation An Guillermo M.D. 07/18/2019 I48.21 Permanent atrial fibrillation An Guillermo M.D. 07/18/2019 I48.21 Permanent atrial fibrillation Nurse Visit 07/01/2019 R06.83 Snoring [...] finger, right little finger Emely Bitting, RPA-C Plan of Treatment Future Appointment(s):09/29/2019 1:30 pm - Yaneth Herrera NP at [facility]09/11/2019 1:00 pm - Yaneth Narvaez M.D. at [facility] at [place]010/27/2019 1:30 pm - Roxana Shen M.D. at [facility]08/08/2019 - Brittny Ruffin MDG47.33 Obstructive sleep apnea (adult) (pediatric)Follow up:6 weeks Functional Status Description No Information Available Mental Status Description No Information Available Referrals Description No Information Available
--- OUTSIDE RECORDS SUMMARY | 2019-08-15 18:25 | XMS REPORT | Continuity of Care Document ---
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 [phone] Problems Active Problems Provider Date Essential hypertension [...] tion Procedures Date Code Description Status 07/19/2019 73342 Ingestion Challenge Test Sequential & Incremental Completed Medical Devices Description No Information Available Encounters Type Date Location Provider Dx Diagnosis Office Visit 07/19/2019 [facility], T88.6xxD Anaphyl reaction 4:30p MD due to advrs eff drug/med prop admin, subs Office Visit 07/07/2019 [facility] Alvarez, Z88.8 Allergy status to 2:00p oth drug/meds/biol subst status Assessments Date Code Description Provider 07/19/2019 T88.6xxD Anaphylactic reaction due to adverse Destin Alvarez MD effect of correct drug or medicament properly administered, subsequent encounter 07/07/2019 Z88.8 Allergy status to other drugs, Destin Alvarez MD medicaments and biological substances status Plan of Treatment 07/07/2019 - Destin Alvarez MDZ88.8 Allergy status to other drugs, medicaments and biological substances statusNew Medication:Metronidazole Benzoate/Syrspend SF PH4 50 mg/ml - for a supervised oral challenge in the office. Functional Status Description No Information Available Mental Status Description No Information Available Referrals Description No Information Available
--- OUTSIDE RECORDS SUMMARY | 2019-08-15 18:25 | XMS REPORT | Continuity of Care Document ---
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 02/07/2019 Injection Depomedrol 40MG Emely Meshating, [facility] 02/06/2019 Injection Depomedrol 40MG Emely Whittington, [facility] 02/06/2019 Injection Depomedrol 40MG Wagner Gandhi M.D. 10/18/2018 Injection Depomedrol 40MG Wagner Gandhi M.D. 07/21/2018 Injection Depomedrol 40MG Yaneth Narvaez M.D. 06/23/2018 Injection Depomedrol 40MG Yaneth Narvaez M.D. 06/23/2018 Injection Depomedrol 40MG Emely Whittington, [facility] 05/25/2018 Injection Depomedrol 80MG Leonid Omer M.D. [...] Available Procedures Date Code Description Status 07/27/2019 54928 Inject/Drain Joint/Bursa Major W/O US Completed 07/20/2019 16904 Holter Monitor Review (24 hr)dr review & interp only Completed 07/18/2019 46536 ECG Monitor/Recording W/Visual Superimposition Completed Scanning 07/18/2019 17969 ECG Monitor/Recording W/Visual Superimposition Completed Scanning 06/06/2019 07893 EKG Tracing & Interpretation Completed 05/27/2019 09845 Holter Monitor Review (24 hr)dr review & interp only Completed 05/25/2019 12923 ECG Monitor/Recording W/Visual Superimposition Completed Scanning 05/25/2019 68445 ECG Monitor/Recording W/Visual Superimposition Completed Scanning 03/13/2019 51609 ECHO Transthoracic, Real-Time 2D With Doppler And Completed Color Flow 03/13/2019 77098 ECHO Transthoracic, Real-Time 2D With Doppler And Completed Color Flow 02/27/2019 06164 Inject Tendon Sheath Or Ligament Aponeurosis Eg Completed Plantar Fascia 02/27/2019 82299 Inject Tendon Sheath Or Ligament Aponeurosis Eg Completed Plantar Fascia 11/25/2017 129749872 Diabetic Retinal Eye Exam Completed 09/08/2017 073045366 Diabetic Retinal Eye Exam Completed 02/05/2017 336139612 Diabetic Retinal Eye Exam Completed 06/01/2014 32594659 Mammogram Completed Medical Devices Description No Information Available Encounters Type Date Location Provider Dx Diagnosis Office Visit 08/08/2019 [facility] Brittny Ruffin, G47.33 Obstructive sleep 11:30a [facility] Services [facility] (adult) [place] (pediatric) Office Visit 07/27/2019 [facility] Yaneth M75.42 Impingement 2:00p at [place] Narvaez M.D. 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 03/13/2019 I50.9 Heart failure, unspecified [place] ECHO Schedule 03/13/2019 I48.21 Permanent atrial fibrillation [place] [facility] Schedule 03/13/2019 I34.0 Nonrheumatic mitral (valve) [place] [facility] Schedule insufficiency 03/13/2019 I36.1 Nonrheumatic tricuspid (valve) [place] [facility] Schedule insufficiency 02/27/2019 M65.331 Trigger finger, right middle finger Emely Bitting, RPA-C 02/27/2019 M65.351 Trigger finger, right little finger Emely Bitting, RPA-C Plan of Treatment Future Appointment(s):09/29/2019 1:30 pm - Yaneth Herrera NP at [facility]09/11/2019 1:00 pm - Yaneth Narvaez M.D. at [facility] at [place]9910/27/2019 1:30 pm - Roxana Shen M.D. at [place] [facility]08/08/2019 - Brittny Ruffin MDG47.33 Obstructive sleep apnea (adult) (pediatric)Follow up:6 weeks Functional Status Description No Information Available Mental Status Description No Information Available Referrals Description No Information Available
--- OUTSIDE RECORDS SUMMARY | 2019-08-15 18:25 | XMS REPORT | Continuity of Care Document ---
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 02/07/2019 Injection Depomedrol 40MG Emely Bitting, [facility] 02/06/2019 Injection Depomedrol 40MG Emely Bitting, [facility] 02/06/2019 Injection Depomedrol 40MG Wagner Gandhi M.D. 10/18/2018 Injection Depomedrol 40MG Wagner Gandhi M.D. 07/21/2018 Injection Depomedrol 40MG Yaneth Narvaez M.D. 06/23/2018 Injection Depomedrol 40MG Yaneth Narvaez M.D. 06/23/2018 Injection Depomedrol 40MG Emely Bitting, [facility] 05/25/2018 Injection Depomedrol 80MG Leonid Omer M.D. 10/06/2013 Injection Depomedrol 80MG Leonid Omer M.D. 04/28/2013 Injection Immunizations Description No Information Available Vital Signs Date Vital Result Comment 07/01/2019 1:19pm Height 62 inches 5'2" Weight 172.00 lb Heart Rate 92 /min BP Systolic Sitting 110 mmHg BP Diastolic Sitting 70 mmHg O2 % BldC Oximetry 97 % BMI (Body Mass Index) 31.5 kg/m2 Neck Circumference in inches 17 06/06/2019 9:03am Height 62 inches 5'2" Weight 178.50 lb with shoes/braces Heart Rate 86 /min left radial BP Systolic Sitting 112 mmHg ule reg cuff BP Diastolic Sitting 78 mmHg ule reg cuff BMI (Body Mass Index) 32.6 kg/m2 Ejection Fraction 55%-60% echo 03/13/19 Results Description No Information Available Procedures Date Code Description Status 07/20/2019 29925 Holter Monitor Review (24 hr)dr review & interp only Completed 07/18/2019 37778 ECG Monitor/Recording W/Visual Superimposition Completed Scanning 06/06/2019 35876 EKG Tracing & Interpretation Completed 05/27/2019 74424 Holter Monitor Review (24 hr)dr review & interp only Completed 05/25/2019 40328 ECG Monitor/Recording W/Visual Superimposition Completed Scanning 05/25/2019 80106 ECG Monitor/Recording W/Visual Superimposition Completed Scanning 03/13/2019 14423 ECHO Transthoracic, Real-Time 2D With Doppler And Completed Color Flow 03/13/2019 84191 ECHO Transthoracic, Real-Time 2D With Doppler And Completed Color Flow 02/27/2019 94290 Inject Tendon Sheath Or Ligament Aponeurosis Eg Completed Plantar Fascia 02/27/2019 22016 Inject Tendon Sheath Or Ligament Aponeurosis Eg Completed Plantar Fascia 02/07/2019 35523 Injection,Anesthetic Agent, Other Peripheral Nerve Completed [place] 02/06/2019 13552 Inject Tendon Sheath Or Ligament Aponeurosis Eg Completed Plantar Fascia 02/06/2019 86560 Inject Tendon Sheath Or Ligament Aponeurosis Eg Completed Plantar Fascia 11/25/2017 283619514 Diabetic Retinal Eye Exam Completed 09/08/2017 390050963 Diabetic Retinal Eye Exam Completed 02/05/2017 950561717 Diabetic Retinal Eye Exam Completed 06/01/2014 13074878 Mammogram Completed Medical Devices Description No Information Available Encounters Type Date Location Provider Dx Diagnosis Office Visit 07/01/2019 [facility] Brittny Ruffin MD R06.83 Snoring 2:30p [facility] [place] R09.02 Hypoxemia Office Visit 06/06/2019 9:20a [place] Baer E66.9 Obesity, Cardiology Evon Guillermo unspecified I48.21 Permanent atrial fibrillation I36.1 Nonrheumatic tricuspid (valve) insufficiency R94.31 Abnormal electrocardiogram [ECG] [EKG] Office Visit 03/31/2019 2:00p [place] [facility] Roxana Ac, 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 07/18/2019 I48.21 Permanent atrial fibrillation Nurse Visit 07/18/2019 I48.91 Unspecified atrial fibrillation Nurse Visit cc 07/01/2019 R06.83 [...] M65.332 Trigger finger, left middle finger Emely Whittington RPA-C 02/06/2019 M65.352 Trigger finger, left little finger NORMAN Henning Plan of Treatment Future Appointment(s):08/11/2019 2:30 pm - Yaneth Herrera NP at [facility]10/27/2019 1:30 pm - Roxana Shen M.D. at [place] [facility]07/01/2019 - Brittny Ruffin, MDR06.83 SnoringFollow up:2 amxxeD71.02 Hypoxemia Functional Status Description No Information Available Mental Status Description No Information Available Referrals Description No Information Available
[2019-08-15 18:52] VITALS: BP 128/83
== END 2019-08-15 19:00 | disposition home or self-care (01) ==
LOC: ED 17:18
DX: K57.92 Diverticulitis of intestine, part unspecified, without perforation or abscess without bleeding (principal); E03.9 Hypothyroidism, unspecified; I11.0 Hypertensive heart disease with heart failure; I50.9 Heart failure, unspecified; F32.9 Major depressive disorder, single episode, unspecified; Z85.828 Personal history of other malignant neoplasm of skin; Z90.89 Acquired absence of other organs; Z87.891 Personal history of nicotine dependence; Z79.01 Long term (current) use of anticoagulants; Z79.890 Hormone replacement therapy; Z79.899 Other long term (current) drug therapy; Z88.0 Allergy status to penicillin; Z88.1 Allergy status to other antibiotic agents; Z88.5 Allergy status to narcotic agent; Z88.8 Allergy status to other drugs, medicaments and biological substances; R10.32 Left lower quadrant pain; K57.32 Diverticulitis of large intestine without perforation or abscess without bleeding; Z98.890 Other specified postprocedural states
CPT/HCPCS: 99283; A9270-GY

== ENCOUNTER 2019-09-04 16:46 | Inpatient (IN) | payer MEDICARE, MEDICAID ==
[2019-09-04] MEDS ORDERED: Ondansetron INJ* 2 MG/ML VIAL IV ONE (16:56)
[2019-09-04] MEDS ORDERED: NS 0.9% 1000 ML** 1,000 ML IV ONE (16:56)
[2019-09-04] MEDS ORDERED: Morphine 4 MG/ML VIAL (1 ml) 4 MG/ML VIAL IV ONE (16:56)
--- NOTE | 2019-09-04 17:09 | ED ---
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 Bonilla) with multiple abdominal surgeries including section and appendectomy presents to the emergency department today with a chief complaint of 8 out of 10 cramping/sharp lower abdominal pain which began at approximately 1600 yesterday evening. Patient was recently seen in this emergency department on and diagnosed with diverticulitis and given oral clindamycin and Bactrim due to her multiple allergies (pt completed course but states these gave her hives). This is suggested by her PCP Dr. Edwards. Patient states she has taken Tylenol for her pain. Patient states she has associated fever of approximately 101-102F as well as nausea and bright red blood per rectum. Patient states this feels similar to her previous episodes of diverticulitis. Patient denies constipation, diarrhea, vomiting. Patient is otherwise well and denies cough, nasal congestion, sore throat, chest pain, shortness of breath, rash, nausea, vomiting, diarrhea, pain with urination. Pt last took tylenol approx 2 hr prior to arrival. - History of Current Complaint Chief Complaint: EDAbdPain Stated Complaint: ABD PAIN PER EMS Hx Obtained From: Patient ?: No Onset/Duration: Gradual Onset, Lasting Days Timing: Constant Severity Initially: Severe Severity Currently: Severe Pain Intensity: 8 Pain Scale Used: 0-10 Numeric Location: Discrete At: RLQ, Discrete At: LLQ Radiates: No Character: Sharp, Cramping Associated Signs and Symptoms: Positive: Fever, Blood in Stool, Decreased Appetite. Negative: Diaphoresis, Cough, Chest Pain, Dizzy, Back Pain, Constipation, Urinary Symptoms, Vaginal Bleeding, Vaginal Discharge, Nausea, Vomiting, Diarrhea Allergies/Adverse Reactions: Allergies Allergy/AdvReac Type Severity Reaction Status Date / Time camphor Allergy ANAPHYLACTI Verified 08/15/19 17:47 C clindamycin [From Cleocin] Allergy Hives Verified 09/04/19 16:57 dextromethorphan Allergy Altered Verified 08/15/19 17:47 Mental Status hydromorphone [From Dilaudid] Allergy See Comment Verified 08/15/19 17:47 latex Allergy ITCHY RASH Verified 08/15/19 17:47 levofloxacin Allergy Anaphylatic Verified 08/15/19 17:47 Shock lisinopril Allergy Coughing Verified 08/15/19 17:47 Penicillins Allergy Unknown Verified 08/15/19 17:47 Reaction Details sulfamethoxazole Allergy Hives Verified 09/04/19 16:57 [From Bactrim] trimethoprim [From Bactrim] Allergy Hives Verified 09/04/19 16:57 ALL COUGH SYRUP Allergy HALLUCINATING, Uncoded 08/15/19 17:47 ROCKING AND GRINDING TEETH MOTH BALLS Allergy ANAPHYLACTIC Uncoded 08/15/19 17:47 SHOCK Home Medications: Home Medications Atenolol TAB* [Tenormin TAB*] 25 mg PO QPM 04/27/14 [History Confirmed 09/04/19] Levothyroxine TAB* [Synthroid TAB*] 88 mcg PO QAM 08/12/15 [History Confirmed ] Diclofenac Sodium [Voltaren] 1 applic TOPICAL BID PRN 01/27/18 [History Confirmed 09/04/19] Apixaban* [Eliquis*] 5 mg PO 0800,199905/03/18 [History Confirmed 09/04/19] Psyllium Husk/Aspartame [Metamucil Powder] 1 teasp PO QPM 05/03/18 [History Confirmed 09/04/19] Torsemide TAB* [Demadex*] 10 mg PO DAILY PRN 05/03/18 [History Confirmed ] Cholecalciferol (Vitamin D3) [Vitamin D3] 50,000 unit PO MONTHLY 09/20/18 [ History Confirmed 09/04/19] Cyanocobalamin TAB* [Vitamin B12 TAB*] 1,000 mcg PO DAILY 09/20/18 [History Confirmed 09/04/19] oxyCODONE/Acetamin 5/325 MG* [Percocet 5/325 TAB*] 1 tab PO Q8HR PRN 09/20/18 [ History Confirmed 09/04/19] Diltiazem TAB* [Cardizem 30 MG Tab*] 30 mg PO QAM 08/15/19 [History Confirmed ] Potassium Chlor TAB* [Klor Con ER TAB*] 40 meq PO BEDTIME 08/15/19 [History Confirmed 09/04/19] PMH/Surg Hx/FS Hx/Imm Hx Endocrine/Hematology History: Reports: Hx Thyroid Disease - HX OF SEVERE GRAVE' S DISEASE- THYROID TOXICOSIS- STATES HAD SURGERY FOR Denies: Hx Diabetes Cardiovascular History: Reports: Hx Congestive Heart Failure - X 1 -RELATED TO THYROID STORM IN ~2013, Hx Hypertension - ON MEDICATION FOR, Hx Valvular Heart Disease - "LEAKY VALVES", Other Cardiovascular Problems/Disorders - DR. 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 Denies: Hx Rheumatoid Arthritis, Hx Osteoporosis Sensory History: Reports: Hx Contacts or Glasses - GLASSES Opthamlomology History: Reports: Hx Contacts or Glasses - GLASSES Neurological History: Reports: Hx Nerve Disease - [id number] DISEASE, Other Neuro Impairments/Disorders - [id number] DISEASE Psychiatric History: Reports: Hx Depression - OFF AND ON- NO MEDICATION FOR AT THIS TIME - Cancer History Cancer Type, Location and Year: basal cell carcinoma Hx Chemotherapy: No Hx Radiation Therapy: No - Surgical History Surgery Procedure, Year, and Place: 08/07 AND 10/2017 - EYELID FOR GRAVES OPTIMOPATHY. Rt OVARY & FALLOPIAN TUBE REMOVED - CYST;. APPENDECTOMY;. 2/3 Lt OVARY REMOVED- CYST 2/3rds REMOVED;. C SECTION;. NERVE- REMOVED- RT INNER FOOT - (FOR DX OF NEURO MUSCULAR DISORDER known as Charcot Wendy Tooth Disease); . LSP - RUPTURED DISC REPAIR;. ANGEL ARMS- FOR TENNIS ELBOW;. TONSILECTOMY;. COMPLETE THYROIDECTOMY IN 2014;. basal cell ca removed from face. 2001 - Rt BREAST BIOSPY -BENIGN (NO CLIPS PLACED). 2013 Rt SHOULDER - RCT Hx Anesthesia Reactions: No - Immunization History Date of Tetanus Vaccine: unknown Date of Influenza Vaccine: 0631-6829 Infectious Disease History: No Infectious Disease History: Denies: Traveled Outside the [place] in Last 30 Days - Family History Known Family History: Negative: Cardiac Disease, Diabetes Family History: Cancer - Social History Alcohol Use: Occasionally Alcohol Amount: 0-2 DRINKS WEEKLY Substance Use Type: Reports: None Hx Tobacco Use: Yes Smoking Status (MU): Former Smoker Type: Cigarettes Amount Used/How Often: 1 PPD X 40+ YEARS Length of Time of Smoking/Using Tobacco: 45 YEARS Have You Smoked in the Last Year: No Review of Systems Positive: Fever, Fatigue Eyes: Negative ENT: Negative Cardiovascular: Negative Respiratory: Negative Positive: Abdominal Pain. Negative: Vomiting, Diarrhea, Nausea Genitourinary: Negative Musculoskeletal: Negative Skin: Negative Neurological/Mental Status: Negative Psychological: Normal All Other Systems Reviewed And Are Negative: Yes Physical Exam - Summary Physical Exam Summary: The patient is in no acute distress. Inspection the abdomen reveals a mildly distended abdomen with no masses or ecchymosis. Auscultation reveals normoactive bowel sounds. Palpation reveals tenderness in the lower abdominal quadrants bilaterally. There is no rebound tenderness. Patient has pain at McBurney's point. Positive psoas, Rovsing, obturator sign. No guarding or rigidity. No peritoneal signs. Triage Information Reviewed: Yes Vital Signs On Initial Exam: Initial Vitals Temp Pulse Resp BP Pulse Ox 100.7 F 110 20 121/75 95 09/04/19 16:50 09/04/19 16:50 09/04/19 16:50 09/04/19 16:50 09/04/19 16:50 Vital Signs Reviewed: Yes Appearance: Positive: Well-Appearing, No Pain Distress, Well-Nourished Skin: Positive: Warm, Skin Color Reflects Adequate Perfusion Eyes: Positive: EOMI, JONNY ENT: Positive: Hearing grossly normal Respiratory/Lung Sounds: Positive: Clear to Auscultation, Breath Sounds Present Cardiovascular: Positive: RRR, S1, S2 Abdomen Description: Positive: Soft, McBurney's Point Tenderness. Negative: CVA Tenderness (R), CVA Tenderness (L), Distended, Guarding, Peritoneal Signs Bowel Sounds: Positive: Present Musculoskeletal: Positive: Strength/ROM Intact Neurological: Positive: Sensory/Motor Intact, Alert, Oriented to Person Place, Time, Normal Gait, Facial Symmetry, Speech Normal Psychiatric: Positive: Normal, Affect/Mood Appropriate AVPU Assessment: Alert Procedures - Sedation Patient Received Moderate/Deep Sedation with Procedure: No Diagnostics - Vital Signs Vital Signs Temp Pulse Resp BP Pulse Ox 09/04/19 16:50 100.7 F 110 20 121/75 95 - Laboratory Result Diagrams: 09/05/19 06:09 09/05/19 06:09 Lab Statement: Any lab studies that have been ordered have been reviewed, and results considered in the medical decision making process. Abdominal Pain Fem Course/Dx - Course Course Of Treatment: Patient was evaluated in the emergency room today for fever with abdominal pain. Vitals noted. She was not hypotensive however she was febrile at approximately 100.7F oral. Patient did not appear toxic nor septic. Blood cultures are obtained. Laboratory studies returned showing leukocytosis with a white blood cell count 11.2 with left shift. CRP is markedly elevated at 204.7. Lipase is within normal limits. Renal function is within normal limits. There are no significant electrolyte derangements. T bili is elevated at 2.1 however other liver function tests are within normal limits. Urinalysis negative for UTI. CT of the abdomen and pelvis with contrast shows acute mid sigmoid diverticulitis with associated microperforation. No abscess. General surgery, Dr. Parekh and was consulted with his findings is suggested admission to [facility] for consultation in the morning with possible surgical intervention. Patient was given metronidazole and Azactam in the emergency department via IV. Hospitalist , Dr. Downing was consulted who agreed to admit the patient for acute diverticulitis with associated microperforation. Patient admitted to [facility]. - Diagnoses Differential Diagnosis: Positive: Appendicitis, Diverticulitis, Gall Bladder Disease Provider Diagnoses: Abdominal pain, Fever, Diverticulitis of colon with perforation - Provider Notifications Discussed Care Of Patient With: Troy Parekh - admit patient to [facility] for surgical consultation the morning. Administer IV antibiotics. Instructed by Provider To: Admit As Inpatient Discharge ED - Sign-Out/Discharge Documenting (check all that apply): Patient Departure - Discharge Plan Condition: Stable Disposition: ADMITTED TO [facility] - Billing Disposition and Condition Condition: STABLE Disposition: Admitted to [facility] - Attestation Statements Provider Attestation: I was available for consult. This patient was seen by the ASHLIE. The patient was not presented to, seen by, or examined by me. Chele Lombardi MD
[2019-09-04] MEDS ORDERED: Ibuprofen TAB* 600 MG PO ONE (17:16)
--- OUTSIDE RECORDS SUMMARY | 2019-09-04 17:42 | XMS REPORT | Continuity of Care Document ---
:1950 External Reference #:[id number] Author Name Jesús Bonilla MD (transmitted by agent of provider Judy Foster) Address [address] [place] [id number] Care Team Providers Name Role Phone Marlin Edwards MD Care Team Information Meat Cutting Teacher [phone] Problems Active Problems Provider Date Diverticulitis of colon Jesús Bonilla MD Onset: 07/26/2019 Digestive symptom Jesús Bonilla MD Onset: 12/26/2014 Social History Type Date Description Comments Sex Unknown Tobacco Use Start: Unknown End: Unknown Patient is a former smoker Smoking Status Reviewed: 08/22/19 Patient is a former smoker Allergies, Adverse Reactions, Alerts Active Allergies Reaction Severity Comments Date Lisinopril 12/26/2014 Camphor 12/26/2014 Penicillins 12/26/2014 Latex 12/26/2014 Levofloxacin 07/26/2019 ALL Cough Medicines 08/23/2019 Moth Balls 08/23/2019 Medications Active Medications SIG Qnty Indications Ordering Date Provider Atenolol Mima, 25mg Tablets MD An Oxycodone-Acetaminophe as needed 28tabs Marlin Edwards MD n 5-325mg Tablets Vitamin D once a month Marlin Edwards MD (Ergocalciferol) [id number] Capsules Potassium Chloride Giorgi Martinez MD 20Meq Packet Levothyroxine Sodium Unknown 88mcg Tablets Diltiazem HCL 1 by mouth Daily Unknown 30mg Tablets Eliquis bid Unknown 5mg Tablets Torsemide 1 by mouth 5 Unknown 10mg Tablets Times A Week Voltaren apply 1-2 gms to Unknown 1% Gel affected area twice a day as needed Immunizations Description No Information Available Vital Signs Date Vital Result Comment 08/23/2019 9:48am Height 62 inches 5'2" Weight 172.00 lb BMI (Body Mass Index) 31.5 kg/m2 07/26/2019 2:25pm Height 63 inches 5'3" Weight 178.00 lb BP Systolic 129 mmHg BP Diastolic 70 mmHg Heart Rate 74 /min BMI (Body Mass Index) 31.5 kg/m2 Results Test Acquired Date Facility Test Result H/L Range Note CBC W/Auto 08/15/2019 [facility] White Blood <pending> Differential(! Count Ser Auto ) CNT RBC Red Blood Count <pending> Hemoglobin Blood <pending> Hematocrit <pending> MCV (Corpuscular Volume) <pending> MCH (Corpuscular Hemoglobin) <pending> MCHC (Corpuscular Hemog Conc) <pending> RDW <pending> Platelet Count Blood Auto CNT <pending> MPV <pending> Lymph% <pending> [place]% <pending> Neutrophil % <pending> Absolute Lymphocytes <pending> Absolute Monocytes <pending> Absolute Neutrophils <pending> CMP(!) 08/15/2019 [facility] Sodium(!) <pending> Potassium(!) <pending> Chloride Serum/Plasma(!) <pending> Carbon Dioxide Ser/Plasm(!) <pending> BUN - Urea Nitrogen(!) <pending> Calcium Ser/Plasma Mass/Vol(!) <pending> Creatinine Serum Mass/Vol(!) <pending> Glucose Serum(!) <pending> BUN/Creatinine Ratio(!) <pending> Albumin Serum/Plasma(!) <pending> Alkaline Phosphatase(!) <pending> Bilirubin Total Mass/Vol(!) <pending> Ast - Sgot <pending> Alt - SGPT <pending> Protein Total <pending> [place] [facility] [place]/Pel W <pending> Procedures Description No Information Available Medical Devices Description No Information Available Encounters Description No Information Available Assessments Date Code Description Provider 07/26/2019 K57.32 Diverticulitis of large intestine without Jesús Erika Bonilla MD perforation or abscess without bleeding Plan of Treatment 07/26/2019 - Jesús Bonilla MDK57.32 Diverticulitis of large intestine without perforation or abscess without bleedingComments:I had a very long discussion with the patient regarding her symptoms. She is doing better at this time. She did not complete her course of antibiotics due to side effects she will remain off them at this point. We discussed good bowel habits fluids probiotics and the prevention of constipation she will continue to work on all this. She will call me back in a few weeks with an update her last colonoscopy revealed hyperplastic polyps Functional Status Description No Information Available Mental Status Description No Information Available Referrals Description No Information Available
--- OUTSIDE RECORDS SUMMARY | 2019-09-04 17:42 | XMS REPORT | Continuity of Care Document ---
:1950 External Reference #:[id number] Author Name Jesús Bonilla MD (transmitted by agent of provider Lindy Garcia) Address [address] [place] [id number] Care Team Providers Name Role Phone Marlin Edwards MD Care Team Information Management Architect [phone] Problems Active Problems Provider Date Diverticulitis of [...] once a month Marlin Edwards MD (Ergocalciferol) [id number] Capsules Potassium Chloride Giorgi Martinez MD 20Meq [...] Auto CNT <pending> MPV <pending> Lymph% <pending> [place]% <pending> Neutrophil % <pending> Absolute Lymphocytes <pending> [...] SGPT <pending> Protein Total <pending> Xray 08/15/2019 [facility] [place]/Pel W <pending> Procedures Description [...]
[2019-09-04 17:50] LABS: ABS Lymphocytes 0.8 10^3/ul (1.0-4.8); ABS Monocytes 0.5 10^3/ul (0-0.8); ABS Neutrophils 9.8 10^3/ul (1.5-7.7); Eosinophil % 0.1 %; Hematocrit 36 % (35-47); Hemoglobin 12.5 g/dL (12.0-16.0); Lymphocyte % 7.5 %; Mean Corpuscular HGB Conc 34 g/dL (31-36); Mean Corpuscular Hemoglobin 32 pg (27-31); Mean Corpuscular Volume 92 fL (80-97); Mean Platelet Volume 8.1 fL (7.4-10.4); Platelet Count 207 10^3/uL (150-450); Red Blood Count 3.96 10^6 /uL (3.70-4.87); Red Cell Distribution Width 15 % (10-15); White Blood Count 11.2 10^3/uL (3.5-10.8)
[2019-09-04 18:10] LABS: ALT 15 U/L (7-52); AST 13 U/L (13-39); Albumin 3.9 g/dL (3.2-5.2); Albumin/Globulin Ratio 1.4 (1-3); Alkaline Phosphatase 69 U/L (34-104); Anion Gap 7 mmol/L (2-11); BUN/Creatinine Ratio 14.3 (8-20); Blood Urea Nitrogen 10 mg/dL (6-24); C Reactive Protein 204.68 mg/L (<8.01); CO2 Carbon Dioxide 27 mmol/L (22-32); Calcium 8.8 mg/dL (8.6-10.3); Chloride 100 mmol/L (101-111); EGFR Non-African American 83.5 (>60); Globulin 2.7 g/dL (2-4); Glucose 111 mg/dL (70-100); Potassium 3.9 mmol/L (3.5-5.0); Sodium 134 mmol/L (135-145); Total Protein 6.6 g/dL (6.4-8.9)
[2019-09-04] MEDS ORDERED: metroNIDAZOLE IV 500 MG/100ML* 500 MG/100 ML BAG IVPB ONE (18:28)
[2019-09-04] MEDS ORDERED: Aztreonam (*) 2 GM in NS 0.9% 100 ML* 100 ML IV ONE (18:30)
[2019-09-04] MEDS ORDERED: Iohexol 300* (CONTRAST) 10 ML SDV IV ONE (18:39)
[2019-09-04 19:41] LABS: Urine Appearance Clear; Urine Bilirubin Negative (Negative); Urine Blood Negative (Negative); Urine Color Straw; Urine Glucose Negative (Negative); Urine Ketones Negative (Negative); Urine Nitrite Negative (Negative); Urine Protein Negative (Negative); Urine Specific Gravity 1.015 (1.010-1.030); Urine Urobilinogen Negative (Negative)
[2019-09-04 19:50] LABS: Activated Partial Thrombo Time 39.6 seconds (26.0-38.0); INR 1.92 (0.82-1.09)
[2019-09-04] MEDS ORDERED: Torsemide TAB 10 MG PO PRN (20:45)
[2019-09-04] MEDS: NS 0.9% 1000 ML** 1,000 ML IV SCH (22:27)
[2019-09-04] MEDS: oxyCODONE/Acetamin 5/325 MG* TAB PO PRN (22:36)
[2019-09-04] MEDS: Potassium Chlor TAB* 20 MEQ TAB.ER PO SCH (22:37)
[2019-09-04] MEDS: Atenolol TAB* 25 MG PO SCH (22:38)
[2019-09-04] MEDS: cefTRIAXone(*) 1 GM in NS 0.9% 50 ML* 50 ML IVPB SCH (22:39)
[2019-09-04] MEDS: Enoxaparin(*) 80 MG/0.8 ML SYR SUBCUT SCH (23:12)
--- NOTE | 2019-09-04 23:25 | HP ---
CC: Dr. Edwards; Dr. Guillermo; Dr. Parekh* HISTORY AND PHYSICAL: DATE OF ADMISSION: 09/04/19 PRIMARY CARE PROVIDER: Dr. Edwards. CHIEF COMPLAINT: Abdominal pain. HISTORY OF PRESENT ILLNESS: Krysta Sierra is a 69-year-old female with history of chronic atrial fibrillation, on Eliquis, who had her first episode of diverticulitis in May of this year. She was treated with 7 days course of Levaquin and Flagyl. She stated that she had bad muscle aches and she felt that she developed tendonitis in bilateral arms from the levofloxacin. She stated that she was okay in the month of June, but at the end of July, the abdominal pain recurred in the left lower quadrant. At this point, Dr. Edwards prescribed the patient clindamycin and Bactrim. The patient had 7 days of the course of antibiotic and her abdominal pain started resolving, but she then developed hives after being treated with those antibiotics. She is not sure if it was Bactrim or clindamycin. Once gain, she finished the entire course of 7 days of them though. She stated that 5 days after the 7 days treatment of her antibiotics in July, she finally had no abdominal pain until approximately 24 hours ago when the pain occurred in the left lower quadrant and radiated to the back and became more severe and disseminated within the past 12 hours when she also developed a fever of 101 degrees. She came in to the ED for evaluation. Here, the CT shows diverticulitis with microperforation. Dr. Parekh was notified by the ED provider and will see the patient in the morning for surgical evaluation. The patient is going to be admitted by the hospitalist team with the diagnosis of perforated diverticulitis. PAST MEDICAL HISTORY: 1. Plniaxg-Fguuj-Vnssb disease. The patient has mild bilateral foot drop and she is wearing foot splints. 2. History of Graves' disease with thyroid storm. This caused the patient to develop CHF. Status post thyroidectomy. 3. History of postsurgical hypothyroidism. 4. History of chronic atrial fibrillation. 5. Hypertension. 6. History of congestive heart failure as mentioned above. 7. History of mitral valve disease. 8. History of bilateral leg edema for which the patient takes torsemide p.r.n. 9. Obstructive sleep apnea. The patient was prescribed CPAP approximately a month ago, but she really does not use it. PAST SURGICAL HISTORY: Appendectomy, oophorectomy, , lumbar spine surgery, bilateral elbow lateral release, thyroidectomy, rotator cuff repair of right shoulder, tonsillectomy, and nerve surgery of the right ankle, cosmetic orbital surgery. MEDICATIONS: At home include: 1. Percocet 5/325 mg every 8 hours p.r.n. 2. Torsemide 10 mg on a daily basis p.r.n. The patient takes it approximately 4 to 5 times a week. 3. Metamucil 1 teaspoon q.p.m. 4. Potassium chloride 40 mEq daily. 5. Levothyroxine 88 mcg daily. 6. Diltiazem 30 mg q.a.m. 7. Voltaren gel on p.r.n. basis. 8. Vitamin B12 1000 mcg daily. 9. Vitamin D3 50,000 units p.o. monthly. 10. Atenolol 25 mg q.p.m. 11. Eliquis 5 mg b.i.d. ALLERGIES: Includes CAMPHOR, CLINDAMYCIN, DEXTROMETHORPHAN, HYDROMORPHONE. The patient stated that hydromorphone simply "doesn't work." LEVOFLOXACIN causes tendonitis. LISINOPRIL causes coughing. PENICILLINS, unknown reaction when she was 7 years old. BACTRIM and CLINDAMYCIN caused hives. All cough syrups cause "hallucinations, rocking and grinding teeth." MOTHBALLS caused anaphylactic shock. FAMILY HISTORY: Both of patient's parents in their 40s from lung cancer. Patient's sister is couple of years older and she is well without any medical problems. SOCIAL HISTORY: The patient started smoking when she was 17, quit smoking in 2010. She smoked 1 pack per day. She uses alcohol rarely. She denies any drug use. She lives by herself and her surrogate is her friend, Jody Yarbrough, with phone number . REVIEW OF SYSTEMS: Please note the abdominal pain as mentioned above. The patient stated that she usually is constipated and she uses Metamucil for that. She last had bowel movement 2 days ago. When she had a bowel movement 2 days ago, she noted that when she was wiping herself, there was a slight tinge of pink on the tissue paper. She stated that she had hemorrhoids many years ago, but those resolved. She denies any melena. In regard to the patient's abdominal pain, it is localized in the left lower quadrant, radiating to the left flank and left back. She developed fevers in the past 12 hours. She denies any nausea or vomiting. Her appetite has been good. All the remaining 12 systems were reviewed with the patient and were otherwise negative. PHYSICAL EXAMINATION GENERAL: The patient is a very pleasant 69-year-old female with a BMI of 31. The patient is in no acute distress. She is alert and oriented x3. VITAL SIGNS: Blood pressure of 97/55, heart rate of 115 and regular, respiratory rate 18, oxygen saturation 90% on room air, temperature of 97.1. HEENT: Head: Atraumatic, normocephalic. Eyes: Pupils are equal, reactive to light and accommodation. Oropharynx is clear. Mucosa moist. NECK: Supple. No JVD, no bruit bilaterally. RESPIRATORY: Clear to auscultation bilaterally. CARDIOVASCULAR: Irregular rate and rhythm. No murmur. ABDOMEN: Protuberant, slightly distended, tympanic to percussion, soft, diffusely tender in all 4 quadrants with no rebound and no guarding. Bowel sounds are present in all 4 quadrants. EXTREMITIES: There is trace bilateral nonpitting pedal edema. Pulses are +2 bilaterally. There is no clubbing or cyanosis. NEUROLOGIC: Speech is clear. Cranial nerves II through XII grossly intact. Motor strength is 5/5 bilaterally. PSYCHIATRIC EVALUATION: Oriented x3. Pleasant and cooperative with evaluation with no evidence of anxiety or depression. DIAGNOSTIC STUDIES/LAB DATA: Laboratory data: White blood cell count of 11.2 , hemoglobin of 12.5, hematocrit of 36, and platelets of 207. INR was 1.92. PTT of 39.6. Sodium was 134, potassium 3.9, chloride 100, carbon dioxide 27, BUN 10, creatinine 0.7. Liver function tests: Total bilirubin of 2.1, otherwise ALT, AST, and alkaline phosphatase were unremarkable. C-reactive protein was 204, lipase of below 10. Urinalysis unremarkable. CT of abdomen and pelvis, impression: "Acute mild sigmoid diverticulitis with associated microperforation, no abscess." EKG is pending at the time of this dictation. ASSESSMENT AND PLAN: 1. The patient has acute diverticulitis and sepsis due to that. Her lactic acid was 0.7. She is going to be placed on gentle intravenous hydration due to that that she has history of congestive heart failure. She is going to be placed on clear liquid diet. Dr. Parekh will see her from Surgery in the morning. At this point does not appear that she needs any emergent surgical intervention. Hopefully, her diverticulitis will resolve with conservative measures. She is going to be placed on ceftriaxone and Flagyl in light of her allergies. 2. Atrial fibrillation with heart rate in the 120s now. She missed her atenolol dose that she already takes at 8 p.m. Nevertheless, I am going to get an EKG. I will also continue her Cardizem. In regard of patient's anticoagulation, due to that that she has microperforation and she may require surgical intervention in the near future, the patient is going to be discontinued from her Eliquis and I will place the patient on Lovenox 1 mg/kg every 12 hours. 3. Obstructive sleep apnea. The patient would prefer not to use CPAP. 4. For DVT prophylaxis, the patient is going to be placed on Lovenox as mentioned above. 5. For code status, the patient's code status is full. Her surrogate is her female friend as mentioned above. TIME SPENT: Approximately 72 minutes was spent on admission of this patient, more than half that time was spent [id number] with the patient during the interview and physical exam. [id number]/CPS #: [id number] MTDD
[2019-09-05] MEDS: metroNIDAZOLE IV 500 MG/100ML* 500 MG/100 ML BAG IVPB SCH ×3 (03:56→19:44)
[2019-09-05] MEDS: Morphine INJ* 2 MG/ML 1 ML SYRINGE (TWO MG - NEW SYRINGE VERSION) IV PRN ×2 (04:03→08:38)
[2019-09-05] MEDS: Levothyroxine TAB* 88 MCG TAB PO SCH (06:16)
[2019-09-05] MEDS: oxyCODONE/Acetamin 5/325 MG* TAB PO PRN ×4 (06:18→20:02)
[2019-09-05 06:21] LABS: ABS Lymphocytes 0.8 10^3/ul (1.0-4.8); ABS Monocytes 0.3 10^3/ul (0-0.8); ABS Neutrophils 6.6 10^3/ul (1.5-7.7); Eosinophil % 0.5 %; Hematocrit 33 % (35-47); Hemoglobin 11.3 g/dL (12.0-16.0); Lymphocyte % 10.2 %; Mean Corpuscular HGB Conc 34 g/dL (31-36); Mean Corpuscular Hemoglobin 32 pg (27-31); Mean Corpuscular Volume 93 fL (80-97); Mean Platelet Volume 8.3 fL (7.4-10.4); Platelet Count 179 10^3/uL (150-450); Red Blood Count 3.56 10^6 /uL (3.70-4.87); Red Cell Distribution Width 15 % (10-15); White Blood Count 7.8 10^3/uL (3.5-10.8)
[2019-09-05 06:40] LABS: BUN/Creatinine Ratio 14.1 (8-20); Calcium 8.5 mg/dL (8.6-10.3); EGFR Non-African American 92.6 (>60); Potassium 4.6 mmol/L (3.5-5.0)
[2019-09-05] MEDS: Cyanocobalamin TAB* 500 MCG PO SCH (08:38)
[2019-09-05] MEDS: Enoxaparin(*) 80 MG/0.8 ML SYR SUBCUT SCH ×2 (08:38→22:21)
[2019-09-05] MEDS: Diltiazem TAB* 30 MG PO SCH (09:25)
--- NOTE | 2019-09-05 14:06 | PN ---
Progress Note - Progress Note Date of Service: 09/05/19 Note: Surgery Consult (full note dictated): Seen this a.m. with Dr. Chen. 69 yo female with at least 2 recent episodes of diverticulits, including one as recently as late July, admitted with same last pm after onset of symptoms on Wednesday. This included central abdominal pain, associated with fever (to 102), nausea, shakes and chills. She has multiple abx sensitivities and is currently on IV Rochephin and Flagyl, which she seems to be tolerating. She has noted relief of her fever and chills, but still admits to abd pain. She's been passing flatus, but no BM since Wednesday. O: Vital Signs - 8 hr 09/05/19 09/05/19 09/05/19 06:18 07:42 08:00 Temperature 97.2 F Pulse Rate 98 Respiratory 16 18 18 Rate Blood Pressure 101/53 (mmHg) O2 Sat by Pulse 94 Oximetry 09/05/19 09/05/19 09/05/19 08:23 08:38 09:41 Temperature Pulse Rate Respiratory 18 18 18 Rate Blood Pressure (mmHg) O2 Sat by Pulse Oximetry 09/05/19 09/05/19 09/05/19 11:19 12:10 13:55 Temperature 99.8 F Pulse Rate 76 Respiratory 18 16 18 Rate Blood Pressure 109/71 (mmHg) O2 Sat by Pulse 98 Oximetry 09/05/19 13:56 Temperature 99.9 F Pulse Rate 91 Respiratory 18 Rate Blood Pressure 111/63 (mmHg) O2 Sat by Pulse 94 Oximetry Gen: lying in bed; NAD Heart: irreg irreg, c/w known afib Lungs: clear Abd: obese; softly distended; BS present; soft, with mild to moderate, mostly central tenderness w/ some palpable "firmness", though no guarding or rigidity. No masses. Labs: Laboratory Tests 09/04/19 09/04/19 09/05/19 16:56 16:56 06:09 WBC 11.2 H 7.8 Hgb 11.3 L Hct 33 L C-Reactive Protein 204.[address] A&P reviewed with Dr. Chen. Inflammatory changes around sigmoid colon w/ small areas of free air in the mesentery. No abscess. A: diverticulitis w/ microperforation, with some initial improvement P: cont current abx, clear liquids. Will follow closely with expectation of continued improvement on current regimen. Patient understands the potential indication for surgical intervention, either this admission if clinical course warrants, or in the future based on her recent past history.
--- NOTE | 2019-09-05 15:04 | PN ---
Subjective Date of Service: 09/05/19 Interval History: Reports improvement in fever chills but reports ongoing abdominal pain Family History: Unchanged from Admission Past Medical History: Unchanged from Admission Objective Active Medications: Acetaminophen (Tylenol Tab*) 650 mg PO Q4H PRN PRN Reason: PAIN-MILD/TEMP >/= 100.4 Atenolol (Tenormin Tab*) 25 mg PO BEDTIME [facility] Last Admin: 09/04/19 22:38 Dose: 25 mg Cyanocobalamin (Vitamin B12 Tab*) 1,000 mcg PO DAILY [facility] Last Admin: 09/05/19 08:38 Dose: 1,000 mcg Diltiazem HCl (Cardizem Tab*) 30 mg PO QAM [facility] Last Admin: 09/05/19 09:25 Dose: 30 mg Enoxaparin Sodium (Lovenox(*)) 80 mg SUBCUT Q12H [facility] Last Admin: 09/05/19 08:38 Dose: 80 mg Sodium Chloride (Ns 0.9% 1000 Ml) 1,000 mls @ 75 mls/hr IV PER RATE [facility] Last Admin: 09/04/19 22:27 Dose: 75 mls/hr Metronidazole/Sodium Chloride (Flagyl 500 Mg Ivpb*) 500 mg in 100 mls @ 100 mls /hr IVPB Q8H [facility] Last Admin: 09/05/19 11:15 Dose: 100 mls/hr Ceftriaxone Sodium 1 gm/ (Sodium Chloride) 50 mls @ 100 mls/hr IVPB Q24H [facility] Last Admin: 09/04/19 22:39 Dose: 100 mls/hr Levothyroxine Sodium (Synthroid Tab*) 88 mcg PO QAM@0600 [facility] Last Admin: 09/05/19 06:16 Dose: 88 mcg Morphine Sulfate (Morphine Inj (Syringe))*) 2 mg IV Q4H PRN PRN Reason: PAIN - SEVERE Last Admin: 09/05/19 08:38 Dose: 2 mg Oxycodone/Acetaminophen (Percocet 5/325 Tab*) 1 tab PO Q4H PRN PRN Reason: PAIN - MODERATE Last Admin: 09/05/19 11:19 Dose: 1 tab Potassium Chloride (Klor Con Er Tab*) 40 meq PO BEDTIME [facility] Last Admin: 09/04/19 22:37 Dose: 40 meq Vital Signs - 8 hr 09/05/19 09/05/19 09/05/19 07:42 08:00 08:23 Temperature 97.2 F Pulse Rate 98 Respiratory 18 18 18 Rate Blood Pressure 101/53 (mmHg) O2 Sat by Pulse 94 Oximetry 09/05/19 09/05/19 09/05/19 08:38 09:41 11:19 Temperature Pulse Rate Respiratory 18 18 18 Rate Blood Pressure (mmHg) O2 Sat by Pulse Oximetry 09/05/19 09/05/19 09/05/19 12:10 13:55 13:56 Temperature 99.8 F 99.9 F Pulse Rate 76 91 Respiratory 16 18 18 Rate Blood Pressure 109/71 111/63 (mmHg) O2 Sat by Pulse 98 94 Oximetry Oxygen Devices in Use Now: Nasal Cannula Eyes: No Scleral Icterus Ears/Nose/Mouth/Throat: NL Teeth, Lips, Gums Neck: NL Appearance and Movements; NL JVP Respiratory: Symmetrical Chest Expansion and Respiratory Effort, Clear to Auscultation Cardiovascular: NL Sounds; No Murmurs; No JVD, RRR Abdominal: - - distended.no rebound min guarding, tender to palpation bilateral lower quadrants Extremities: No Edema Neurological: Alert and Oriented x 3 Result Diagrams: 09/05/19 06:09 09/05/19 06:09 Assess/Plan/Problems-Billing Assessment: - Patient Problems (1) Diverticulitis Current Visit: Yes Status: Acute Code(s): K57.92 - DVTRCLI OF INTEST, PART UNSP, W/O PERF OR ABSCESS W/O BLEED SNOMED Code(s): 254878148 Comment: diverticultis with microperforation 3rd episode appreciate surgery input continue ceftriaxone and flagyl with multiple antibiotic allergies tolerating well clear liquid diet (2) Atrial fibrillation Current Visit: Yes Status: Acute Code(s): I48.91 - UNSPECIFIED ATRIAL FIBRILLATION SNOMED Code(s): 17734777 Comment: continue cardizem lovenox now instead of eliquis as pt may require surgical intervention (3) LINA (obstructive sleep apnea) Current Visit: Yes Status: Acute Code(s): G47.33 - OBSTRUCTIVE SLEEP APNEA ( ADULT) (PEDIATRIC) SNOMED Code(s): 80725238 Comment: prefers not to use cpap not sob
[2019-09-05] MEDS: NS 0.9% 1000 ML** 1,000 ML IV SCH (15:40)
--- NOTE | 2019-09-05 15:40 | CONS ---
CC: Dr. Marlin Edwards; Dr. Jesús Bonilla* SURGICAL CONSULT NOTE: DATE OF CONSULT: 09/05/19 ATTENDING SURGEON: Dr. Anselmo Chen. CHIEF COMPLAINT: Abdominal pain; diverticulitis. HISTORY OF PRESENT ILLNESS: This is a 69-year-old female with multiple medical problems, who has experienced at least 2 episodes of diverticulitis thus far this year. One episode in May, at which time she was treated with Levaquin and Flagyl, the Levaquin apparently being a cause of both rash and tendinitis ( she was allergy tested by Dr. Alvarez and is not allergic to Flagyl). The report on the CT scan at that time was not very remarkable for acute diverticulitis changes. Late July, she experienced a second episode and underwent CT on 08/14, which was consistent with uncomplicated, but acute diverticulitis. That episode was treated with Bactrim and clindamycin. She developed a rash at the conclusion of that treatment and did have some residual symptoms, but then seemed to be symptom-free until 09/03/19. At that time, she noted sudden onset of central abdominal pain in the afternoon with associated fever ( up to 102) and shakes as well as chills. She had accompanying nausea and anorexia, but denies vomiting. She also had headache. Her last bowel movement was Wednesday, which she described as formed, but approximately half the normal caliber. She describes some urinary urgency, but no dysuria, hematuria, or air or bubbles in the urine. She had undergone colonoscopy most recently in [address] Bonilla showing mild diverticulosis, melanosis coli, and removal of 2 hyperplastic polyps. She does have a history of chronic constipation for which she alternates MiraLAX and psyllium on a daily basis. Previous abdominal surgeries as noted below. 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 She has peripheral neuropathy. She is status post total thyroidectomy for Graves disease, which was complicated by an episode of thyroid storm with resultant CHF. She is treated for hypertension. She has been followed by Dr. Guillermo with no recent acute changes. She was recently diagnosed with obstructive sleep apnea and has been using CPAP consistently at home, though not here in the hospital. 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 No reported surgical or anesthesia complications. CURRENT MEDICATIONS: Include: 1. Atenolol 25 mg once daily. 2. Levothyroxine 88 mcg once daily. 3. Eliquis 5 mg b.i.d. 4. Potassium chloride 40 mEq q.h.s. 5. Diltiazem 30 mg daily. 6. Psyllium alternating with MiraLAX every other day. 7. Vitamin B12. 8. Vitamin D 50,000 units once monthly. 9. She uses topical diclofenac p.r.n. 10. Torsemide 10 mg once daily p.r.n. peripheral edema (typically 4 to 5 times per week). 11. Percocet 5/325 p.r.n. (does not use most days). Currently, she is receiving ceftriaxone and metronidazole as well as therapeutic Levaquin. DRUG ALLERGIES: Include CLINDAMYCIN and/or BACTRIM (hives), LEVOFLOXACIN ( tendinitis and rash), LISINOPRIL (cough), PENICILLIN (unspecified childhood reaction), ALL COUGH SYRUPS (hallucination), MOTHBALLS (difficulty breathing), HYDROMORPHONE (states that it does not work), LATEX (rash). FAMILY HISTORY: Negative for anesthesia problems, bleeding or clotting disorders. SOCIAL HISTORY: The patient lives alone in an apartment. 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 She is a former smoker with a 40-pack year history, who quit in 2010. She drinks alcohol rarely. REVIEW OF SYSTEMS: No additions to the past medical history or HPI. PHYSICAL EXAM: Height 5 feet 2 inches, weight 172 pounds, temperature 97.2 ( down from initial of 100.7), blood pressure 101/53, pulse 98, respirations 18, saturation 94% on 2 L. General: Well-nourished, somewhat obese female, in no acute distress. She appears comfortable. Skin: Warm and dry. No suspicious rashes or lesions. HEENT: Pupils are equal and round. Mild conjunctival pallor. Oropharynx: Mucous membranes moist. Teeth in good repair. No intraoral lesions. Neck: No lymphadenopathy or thyromegaly (status post thyroidectomy). Heart: Irregularly irregular consistent with known atrial fibrillation. Difficult to discern murmur. Respiratory: Lungs clear to auscultation. No rales or wheezes. Abdomen: Multiple well-healed surgical scars. Mildly obese. Softly distended. Bowel sounds are present. Soft with primarily central abdominal tenderness without guarding or rigidity. There is some firmness to palpation in the lower mid abdomen. Remainder of the abdomen is soft and nontender. Rectal: Not done. Back: No spinous process or CVA tenderness. Extremities: Not examined. Neurological: Grossly intact. DIAGNOSTIC STUDIES/LAB DATA: White blood cell count 7800, down from initial of 11,200; normal differential; hemoglobin 11.3. INR 1.9. P3 is essentially normal. Her initial CRP was elevated at 205. Initial total bilirubin 2.1, which is elevated from 1.5 in July. Liver function tests are otherwise normal. CT scan with IV and oral contrast was reviewed personally and with Dr. Chen. This shows an area of inflammatory change around the sigmoid colon consistent with acute diverticulitis. There is a small area within the mesentery with small areas of air consistent with microperforation. IMPRESSION: Acute diverticulitis with microperforation. PLAN: Continuation of IV antibiotics and serial abdominal exams. It is expected that the patient will continue to improve on the current regimen and will be discharged on an additional course of oral antibiotics (likely 2 weeks upon discharge). She understands the potential need for surgical intervention either acutely during this admission if clinical condition deteriorates or consideration in the future once this episode has resolved because of her repeat episodes and the current microperforation. This would hopefully be a one -stage laparoscopic- assisted sigmoid resection, though she will need to have further discussion regarding this with Dr. Chen. The patient understands and agrees with the plan. We will follow on a daily basis. DELLA BURDEN [id number]/[facility] #: [id number] [facility] CENTERAmy
[2019-09-05] MEDS ORDERED: Atenolol TAB* 25 MG PO SCH (18:00)
[2019-09-05] MEDS: Ondansetron INJ* 2 MG/ML VIAL IV PRN (20:02)
[2019-09-05] MEDS: Acetaminophen TAB* 325 MG PO PRN (22:17)
[2019-09-05] MEDS: Potassium Chlor TAB* 20 MEQ TAB.ER PO SCH (22:17)
[2019-09-05] MEDS: cefTRIAXone(*) 1 GM in NS 0.9% 50 ML* 50 ML IVPB SCH (22:17)
[2019-09-05] MEDS: Atenolol TAB* 25 MG PO SCH (22:19)
[2019-09-06] MEDS: Pantoprazole IV* 40 MG IV SCH ×2 (00:47→22:17)
[2019-09-06] MEDS: oxyCODONE/Acetamin 5/325 MG* TAB PO PRN ×4 (03:00→22:16)
[2019-09-06] MEDS: metroNIDAZOLE IV 500 MG/100ML* 500 MG/100 ML BAG IVPB SCH ×3 (03:01→19:44)
[2019-09-06] MEDS: Ondansetron INJ* 2 MG/ML VIAL IV PRN ×3 (03:01→21:35)
[2019-09-06] MEDS: Levothyroxine TAB* 88 MCG TAB PO SCH (07:22)
[2019-09-06 08:22] LABS: ABS Lymphocytes 0.5 10^3/ul (1.0-4.8); ABS Monocytes 0.3 10^3/ul (0-0.8); ABS Neutrophils 6.4 10^3/ul (1.5-7.7); Eosinophil % 0.3 %; Hematocrit 29 % (35-47); Hemoglobin 10.2 g/dL (12.0-16.0); Lymphocyte % 6.5 %; Mean Corpuscular HGB Conc 35 g/dL (31-36); Mean Corpuscular Hemoglobin 32 pg (27-31); Mean Corpuscular Volume 93 fL (80-97); Mean Platelet Volume 8.6 fL (7.4-10.4); Platelet Count 154 10^3/uL (150-450); Red Blood Count 3.14 10^6 /uL (3.70-4.87); Red Cell Distribution Width 15 % (10-15); White Blood Count 7.2 10^3/uL (3.5-10.8)
[2019-09-06] MEDS: Diltiazem TAB* 30 MG PO SCH (08:34)
[2019-09-06] MEDS: Cyanocobalamin TAB* 500 MCG PO SCH (08:34)
[2019-09-06] MEDS: Enoxaparin(*) 80 MG/0.8 ML SYR SUBCUT SCH ×2 (08:34→22:16)
[2019-09-06] MEDS: NS 0.9% 1000 ML** 1,000 ML IV SCH ×2 (08:34→17:30)
[2019-09-06 08:36] LABS: Albumin 3.2 g/dL (3.2-5.2); Albumin/Globulin Ratio 1.3 (1-3); BUN/Creatinine Ratio 8.8 (8-20); C Reactive Protein 273.82 mg/L (<8.01); Calcium 8.2 mg/dL (8.6-10.3); EGFR Non-African American 105.8 (>60); Globulin 2.5 g/dL (2-4); Potassium 4.3 mmol/L (3.5-5.0); Total Bilirubin 0.8 mg/dL (0.2-1.0); Total Protein 5.7 g/dL (6.4-8.9)
--- NOTE | 2019-09-06 08:47 | PN ---
Progress Note - Progress Note Date of Service: 09/06/19 Note: S: Continues with ABD pain, mostly central. Some nausea today, no emesis. Passed loose BM this morning, pt unsure if passing flatus. No emesis, fever, chills, SOB, chest pain, palpitations. O: Temp Pulse Resp BP Pulse Ox 99.0 F 98 18 107/67 95 09/06/19 08:30 09/06/19 08:30 09/06/19 08:30 09/06/19 08:30 09/06/19 08:30 Laboratory Last Values WBC 7.2 10^3/uL (3.5-10.8) 09/06/19 08:13 RBC 3.14 10^6 /uL (3.70-4.87) L 09/06/19 08:13 Hgb 10.2 g/dL (12.0-16.0) L 09/06/19 08:13 Hct 29 % (35-47) L 09/06/19 08:13 MCV 93 fL (80-97) 09/06/19 08:13 MCH 32 pg (27-31) H 09/06/19 08:13 MCHC 35 g/dL (31-36) 09/06/19 08:13 RDW 15 % (10-15) 09/06/19 08:13 Plt Count 154 10^3/uL (150-450) 09/06/19 08:13 MPV 8.6 fL (7.4-10.4) 09/06/19 08:13 Neut % (Auto) 89.1 % 09/06/19 08:13 Lymph % (Auto) 6.5 % 09/06/19 08:13 [place] % (Auto) 3.5 % 09/06/19 08:13 Eos % (Auto) 0.3 % 09/06/19 08:13 Baso % (Auto) 0.6 % 09/06/19 08:13 Absolute Neuts (auto) 6.4 10^3/ul (1.5-7.7) 09/06/19 08:13 Absolute Lymphs (auto) 0.5 10^3/ul (1.0-4.8) L 09/06/19 08:13 Absolute Monos (auto) 0.3 10^3/ul (0-0.8) 09/06/19 08:13 Absolute Eos (auto) 0.0 10^3/ul (0-0.6) 09/06/19 08:13 Absolute Basos (auto) 0.0 10^3/ul (0-0.2) 09/06/19 08:13 Absolute Nucleated RBC 0.0 10^3/ul 09/06/19 08:13 Nucleated RBC % 0.0 09/06/19 08:13 INR (Anticoag Therapy) 1.92 (0.82-1.09) H 09/04/19 16:56 APTT 39.6 seconds (26.0-38.0) H 09/04/19 16:56 Sodium 136 mmol/L (135-145) 09/06/19 08:13 Potassium 4.3 mmol/L (3.5-5.0) 09/06/19 08:13 Chloride 107 mmol/L (101-111) 09/06/19 08:13 Carbon Dioxide 22 mmol/L (22-32) 09/06/19 08:13 Anion Gap 7 mmol/L (2-11) 09/06/19 08:13 BUN 5 mg/dL (6-24) L 09/06/19 08:13 Creatinine 0.57 mg/dL (0.51-0.95) 09/06/19 08:13 Est GFR ( Amer) 128.0 (>60) 09/06/19 08:13 Est GFR (Non-Af Amer) 105.8 (>60) 09/06/19 08:13 BUN/Creatinine Ratio 8.8 (8-20) 09/06/19 08:13 Glucose 103 mg/dL (70-100) H 09/06/19 08:13 Lactic Acid 0.7 mmol/L (0.5-2.0) 09/04/19 16:56 Calcium 8.2 mg/dL (8.6-10.3) L 09/06/19 08:13 Total Bilirubin 0.80 mg/dL (0.2-1.0) 09/06/19 08:13 AST 10 U/L (13-39) L 09/06/19 08:13 ALT 11 U/L (7-52) 09/06/19 08:13 Alkaline Phosphatase 60 U/L (34-104) 09/06/19 08:13 C-Reactive Protein 273.82 mg/L (<8.01) H 09/06/19 08:13 Total Protein 5.7 g/dL (6.4-8.9) L 09/06/19 08:13 Albumin 3.2 g/dL (3.2-5.2) 09/06/19 08:13 Globulin 2.5 g/dL (2-4) 09/06/19 08:13 Albumin/Globulin Ratio 1.3 (1-3) 09/06/19 08:13 Lipase < 10 U/L (11.0-82.0) L 09/04/19 16:56 Urine Color Straw 09/04/19 19:30 Urine Appearance Clear 09/04/19 19:30 Urine pH 6.0 (5-9) 09/04/19 19:30 Ur Specific [place] 1.015 (1.010-1.030) 09/04/19 19:30 Urine Protein Negative (Negative) 09/04/19 19:30 Urine Ketones Negative (Negative) 09/04/19 19:30 Urine Blood Negative (Negative) 09/04/19 19:30 Urine Nitrate Negative (Negative) 09/04/19 19:30 Urine Bilirubin Negative (Negative) 09/04/19 19:30 Urine Urobilinogen Negative (Negative) 09/04/19 19:30 Ur Leukocyte Esterase Negative (Negative) 09/04/19 19:30 Urine Glucose Negative (Negative) 09/04/19 19:30 PEX General: Alert, in NAD. HEENT: Oropharynx clear. PERRLA. Heart: Irregularly irregular. No murmurs, rubs, or gallups. Lungs: CTAB, no WRR. ABD: BS present. Soft, nondisteded. Tender diffusely, mostly centrally. No guarding or rebound tenderness. Extremities: Slight edema in LLE, none appreciated in right. Distal pulses intact bilaterally. Calves soft and nontender. Assessment and plan: 69 yo F with diverticulitis w/ microperforation. WBCs trending downwards. Continue abx, clear liquid diet. Does not appear to need immediate surgical intervention.
--- NOTE | 2019-09-06 12:30 | PN ---
Subjective Date of Service: 09/06/19 Interval History: Improved abd pain. Continued low grade fever Family History: Unchanged from Admission Past Medical History: Unchanged from Admission Objective Active Medications: Acetaminophen (Tylenol Tab*) 650 mg PO Q4H PRN PRN Reason: PAIN-MILD/TEMP >/= 100.4 Last Admin: 09/05/19 22:17 Dose: 650 mg Atenolol (Tenormin Tab*) 25 mg PO BEDTIME [facility] Last Admin: 09/05/19 22:19 Dose: 25 mg Calcium Carbonate (Tums*) 500 mg PO Q4H PRN PRN Reason: INDIGESTION Cyanocobalamin (Vitamin B12 Tab*) 1,000 mcg PO DAILY [facility] Last Admin: 09/06/19 08:34 Dose: 1,000 mcg Diltiazem HCl (Cardizem Tab*) 30 mg PO QAM [facility] Last Admin: 09/06/19 08:34 Dose: 30 mg Enoxaparin Sodium (Lovenox(*)) 80 mg SUBCUT Q12H [facility] Last Admin: 09/06/19 08:34 Dose: 80 mg Sodium Chloride (Ns 0.9% 1000 Ml) 1,000 mls @ 75 mls/hr IV PER RATE [facility] Last Admin: 09/06/19 08:34 Dose: 75 mls/hr Metronidazole/Sodium Chloride (Flagyl 500 Mg Ivpb*) 500 mg in 100 mls @ 100 mls /hr IVPB Q8H [facility] Last Admin: 09/06/19 11:20 Dose: 100 mls/hr Ceftriaxone Sodium 1 gm/ (Sodium Chloride) 50 mls @ 100 mls/hr IVPB Q24H [facility] Last Admin: 09/05/19 22:17 Dose: 100 mls/hr Levothyroxine Sodium (Synthroid Tab*) 88 mcg PO QAM@0600 [facility] Last Admin: 09/06/19 07:22 Dose: 88 mcg Morphine Sulfate (Morphine Inj (Syringe))*) 2 mg IV Q4H PRN PRN Reason: PAIN - SEVERE Last Admin: 09/05/19 08:38 Dose: 2 mg Ondansetron HCl (Zofran Inj*) 4 mg IV Q6H PRN PRN Reason: NAUSEA Last Admin: 09/06/19 11:39 Dose: 4 mg Oxycodone/Acetaminophen (Percocet 5/325 Tab*) 1 tab PO Q4H PRN PRN Reason: PAIN - MODERATE Last Admin: 09/06/19 07:22 Dose: 1 tab Pantoprazole Sodium (Protonix Iv*) 40 mg IV BEDTIME [facility] Last Admin: 09/06/19 00:47 Dose: 40 mg Potassium Chloride (Klor Con Er Tab*) 40 meq PO BEDTIME [facility] Last Admin: 09/05/19 22:17 Dose: 40 meq Vital Signs - 8 hr 09/06/19 09/06/19 09/06/19 07:22 07:23 08:30 Temperature 99.0 F Pulse Rate 98 Respiratory 18 18 18 Rate Blood Pressure 107/67 (mmHg) O2 Sat by Pulse 95 Oximetry 09/06/19 09/06/19 09:00 11:19 Temperature 100.0 F Pulse Rate 95 Respiratory 18 18 Rate Blood Pressure 94/60 (mmHg) O2 Sat by Pulse 94 Oximetry Oxygen Devices in Use Now: Nasal Cannula Eyes: No Scleral Icterus Ears/Nose/Mouth/Throat: NL Teeth, Lips, Gums Neck: NL Appearance and Movements; NL JVP Respiratory: Symmetrical Chest Expansion and Respiratory Effort Cardiovascular: NL Sounds; No Murmurs; No JVD Abdominal: - - distended no rebound no guarding Lower quadrant abd tenderness Extremities: No Edema Neurological: Alert and Oriented x 3 Result Diagrams: 09/06/19 08:13 09/06/19 08:13 Microbiology and Other Data: Microbiology 09/04/19 16:56 Aerobic Blood Culture - Preliminary Blood Venous No Growth Day 1 Anaerobic Blood Culture - Preliminary No Growth Day 1 09/04/19 16:56 Aerobic Blood Culture - Preliminary Blood Venous No Growth Day 1 Anaerobic Blood Culture - Preliminary No Growth Day 1 Assess/Plan/Problems-Billing Assessment: - Patient Problems (1) Diverticulitis Current Visit: Yes Status: Acute Code(s): K57.92 - DVTRCLI OF INTEST, PART UNSP, W/O PERF OR ABSCESS W/O BLEED SNOMED Code(s): 167618128 Comment: diverticultis with microperforation 3rd episode appreciate surgery input continue ceftriaxone and flagyl with multiple antibiotic allergies tolerating well clear liquid diet (2) Atrial fibrillation Current Visit: Yes Status: Acute Code(s): I48.91 - UNSPECIFIED ATRIAL FIBRILLATION SNOMED Code(s): 84450488 Comment: continue cardizem lovenox now instead of eliquis as pt may require surgical intervention (3) LINA (obstructive sleep apnea) Current Visit: Yes Status: Acute Code(s): G47.33 - OBSTRUCTIVE SLEEP APNEA ( ADULT) (PEDIATRIC) SNOMED Code(s): 61790292 Comment: prefers not to use cpap not sob
[2019-09-06] MEDS ORDERED: NS 0.9% 1000 ML** 1,000 ML IV SCH (16:42)
[2019-09-06] MEDS: Acetaminophen TAB* 325 MG PO PRN (17:04)
[2019-09-06] MEDS: cefTRIAXone(*) 1 GM in NS 0.9% 50 ML* 50 ML IVPB SCH (22:17)
[2019-09-06] MEDS: Potassium Chlor TAB* 20 MEQ TAB.ER PO SCH ×2 (22:17→22:18)
[2019-09-06] MEDS: Atenolol TAB* 25 MG PO SCH (22:17)
[2019-09-07] MEDS: NS 0.9% 1000 ML** 1,000 ML IV SCH ×3 (03:19→21:31)
[2019-09-07] MEDS: metroNIDAZOLE IV 500 MG/100ML* 500 MG/100 ML BAG IVPB SCH ×3 (03:24→19:33)
[2019-09-07] MEDS: Ondansetron INJ* 2 MG/ML VIAL IV PRN ×4 (03:26→22:03)
[2019-09-07] MEDS: Levothyroxine TAB* 88 MCG TAB PO SCH (05:18)
[2019-09-07 05:53] LABS: ABS Basophils 0.1 10^3/ul (0-0.2); ABS Lymphocytes 0.5 10^3/ul (1.0-4.8); ABS Monocytes 0.2 10^3/ul (0-0.8); ABS Neutrophils 5.4 10^3/ul (1.5-7.7); Eosinophil % 0.3 %; Hematocrit 30 % (35-47); Hemoglobin 10.3 g/dL (12.0-16.0); Lymphocyte % 8.5 %; Mean Corpuscular HGB Conc 35 g/dL (31-36); Mean Corpuscular Hemoglobin 33 pg (27-31); Mean Corpuscular Volume 94 fL (80-97); Mean Platelet Volume 9.7 fL (7.4-10.4); Nucleated Red Blood Cells % 0.1; Platelet Count 186 10^3/uL (150-450); Red Blood Count 3.16 10^6 /uL (3.70-4.87); Red Cell Distribution Width 15 % (10-15); White Blood Count 6.2 10^3/uL (3.5-10.8)
[2019-09-07 06:09] LABS: BUN/Creatinine Ratio 6.8 (8-20); C Reactive Protein 251.22 mg/L (<8.01); Calcium 8.3 mg/dL (8.6-10.3); EGFR Non-African American 101.7 (>60)
[2019-09-07] MEDS: Enoxaparin(*) 80 MG/0.8 ML SYR SUBCUT SCH ×2 (09:43→21:33)
[2019-09-07] MEDS: Diltiazem TAB* 30 MG PO SCH (09:44)
[2019-09-07] MEDS: Cyanocobalamin TAB* 500 MCG PO SCH (09:44)
[2019-09-07] MEDS: oxyCODONE/Acetamin 5/325 MG* TAB PO PRN (10:59)
[2019-09-07] MEDS ORDERED: oxyCODONE/Acetamin 5/325 MG* TAB PO PRN (11:16)
--- NOTE | 2019-09-07 11:32 | PN ---
Progress Note - Progress Note Date of Service: 09/07/19 Note: Surgery Progress: S: HD #4, on Rocephin and Flagyl. c/o feeling "bad" this a.m.: headache, nausea (no vomiting), metallic taste in her mouth ("I feel like my blood is full of Flagyl"), anorexic, increased pain in her upper abdomen. She has had some loose stool as well as flatus. O: Tmax 100.4 Vital Signs - 8 hr 09/07/19 09/07/19 09/07/19 07:22 10:59 11:07 Temperature 98.3 F 98.6 F Pulse Rate 107 110 Respiratory 18 18 18 Rate Blood Pressure 101/63 124/66 (mmHg) O2 Sat by Pulse 94 95 Oximetry Intake and Output Last 24 Hours 09/05/19 09/06/19 09/07/19 09/08/19 06:59 06:59 06:59 06:59 Intake Total 1200 1920 3719 1223 Output Total 1050 1350 950 150 Balance 947 630 9286 1073 Weight 172 lb Intake: IV Fluids 1718 121 7850 815 NS (0.9%) 980 1642 815 IVPB 260 317 168 ABX - CEFTRIAXONE 55 ABX - FLAGYL 205 317 168 Oral 890 518 9572 240 Output: Urine 1050 1350 950 150 Other: Date of Last Bowel 09/06/19 09/06/19 Movement # Bowel Movements 1 1 1 Estimated Stool Amount Medium Medium Small Gen: lying in bed, covers up to her neck; appears in mild distress Heart: irreg irreg, mildly tachy Lungs: clear Abd: obese, mildly distended. +BS. Soft, a bit tympanitic across upper abd. Mild tenderness central abd, upper and lower about the same. Lower abd actually feels less firm/tender to my exam today vs 2 d ago. No peritoneal signs. Labs: Laboratory Tests 09/04/19 09/06/19 09/07/19 16:56 08:13 04:54 WBC 6.2 Hgb 10.3 L C-Reactive Protein 204.68 H 273.82 H 09/07/19 04:54 WBC Hgb C-Reactive Protein 251.22 H A: diverticulitis w/ micro perf, overall stable but not clinically progressing in a positive direction as we would expect at this point P: Dr. Nguyen to see. Cont IV abx. Clears only. Consider rescanning.
--- NOTE | 2019-09-07 12:47 | PN ---
Progress Note - Progress Note Date of Service: 09/07/19 Note: Surgery Progress Note I saw and examined this patient and I reviewed all of her clinical information. Briefly, patient is a 69 yo F with a history of recurrent diverticulitis who was admitted on 09/03 evening for sigmoid diverticulitis with microperforation. Today the patient says that she feels marginally better than she did on admission (pain is 7/10 instead of 9/10). She has had emesis with CLD and has a poor appetite. Her WBC has normalized and she has low grade fevers (100.4 yesterday night), elevated CRPs . She has been able to ambulate. On physical exam her abdomen is somewhat distended and she is tender in the upper mid abdomen and in the LLQ and RLQ. She is currently on flagyl and ceftriaxone. I discussed with the patient that at this point we will continue to follow and observe her for clinical improvement. She has been on 2 full days of IV antibiotics at this point ( and Wed) and I told her that she may require a few more days before we notice a significant improvement in her exam. I discussed with her that we will make her NPO with sips of water until her pain improves. She does understand and we discussed that if she fails to improve we may repeat her CT abdomen/pelvis to evaluate for development of abscess or need to take her to the OR for a likely Robin's procedure. She understands this might be necessary but strongly wishes to avoid an ostomy. Surgery will continue to follow this patient.
--- NOTE | 2019-09-07 14:56 | PN ---
Subjective Date of Service: 09/07/19 Interval History: Some improvement in abd pain.Still ongoing low grade fevers Family History: Unchanged from Admission Past Medical History: Unchanged from Admission Objective Active Medications: Acetaminophen (Tylenol Tab*) 650 mg PO Q4H PRN PRN Reason: PAIN-MILD/TEMP >/= 100.4 Last Admin: 09/06/19 17:04 Dose: 650 mg Atenolol (Tenormin Tab*) 25 mg PO BEDTIME [facility] Last Admin: 09/06/19 22:17 Dose: 25 mg Calcium Carbonate (Tums*) 500 mg PO Q4H PRN PRN Reason: INDIGESTION Cyanocobalamin (Vitamin B12 Tab*) 1,000 mcg PO DAILY [facility] Last Admin: 09/07/19 09:44 Dose: 1,000 mcg Diltiazem HCl (Cardizem Tab*) 30 mg PO QAM [facility] Last Admin: 09/07/19 09:44 Dose: 30 mg Enoxaparin Sodium (Lovenox(*)) 80 mg SUBCUT Q12H [facility] Last Admin: 09/07/19 09:43 Dose: 80 mg Metronidazole/Sodium Chloride (Flagyl 500 Mg Ivpb*) 500 mg in 100 mls @ 100 mls /hr IVPB Q8H [facility] Last Admin: 09/07/19 10:59 Dose: 100 mls/hr Ceftriaxone Sodium 1 gm/ (Sodium Chloride) 50 mls @ 100 mls/hr IVPB Q24H [facility] Last Admin: 09/06/19 22:17 Dose: 100 mls/hr Sodium Chloride (Ns 0.9% 1000 Ml) 1,000 mls @ 125 mls/hr IV PER RATE [facility] Last Admin: 09/07/19 11:04 Dose: 125 mls/hr Levothyroxine Sodium (Synthroid Tab*) 88 mcg PO QAM@0600 [facility] Last Admin: 09/07/19 05:18 Dose: 88 mcg Morphine Sulfate (Morphine Inj (Syringe))*) 2 mg IV Q4H PRN PRN Reason: PAIN - SEVERE Last Admin: 09/05/19 08:38 Dose: 2 mg Ondansetron HCl (Zofran Inj*) 4 mg IV Q6H PRN PRN Reason: NAUSEA Last Admin: 09/07/19 09:44 Dose: 4 mg Oxycodone/Acetaminophen (Percocet 5/325 Tab*) 1 tab PO Q4H PRN PRN Reason: PAIN - MODERATE Last Admin: 09/07/19 10:59 Dose: 1 tab Oxycodone/Acetaminophen (Percocet 5/325 Tab*) 2 tab PO Q4H PRN PRN Reason: moderately severe pain Pantoprazole Sodium (Protonix Iv*) 40 mg IV BEDTIME [facility] Last Admin: 09/06/19 22:17 Dose: 40 mg Potassium Chloride (Klor Con Er Tab*) 40 meq PO BEDTIME [facility] Last Admin: 09/06/19 22:18 Dose: Not Given Vital Signs - 8 hr 09/07/19 09/07/19 09/07/19 07:22 09:45 10:59 Temperature 98.3 F Pulse Rate 107 Respiratory 18 18 18 Rate Blood Pressure 101/63 (mmHg) O2 Sat by Pulse 94 Oximetry 09/07/19 11:07 Temperature 98.6 F Pulse Rate 110 Respiratory 18 Rate Blood Pressure 124/66 (mmHg) O2 Sat by Pulse 95 Oximetry Oxygen Devices in Use Now: Nasal Cannula Eyes: No Scleral Icterus Ears/Nose/Mouth/Throat: NL Teeth, Lips, Gums Neck: NL Appearance and Movements; NL JVP Respiratory: Symmetrical Chest Expansion and Respiratory Effort Cardiovascular: NL Sounds; No Murmurs; No JVD Abdominal: - - distended no rebound no guarding tender to palpation lower quadrants Extremities: No Edema Neurological: Alert and Oriented x 3 Result Diagrams: 09/07/19 04:54 09/07/19 04:54 Microbiology and Other Data: Microbiology 09/04/19 16:56 Aerobic Blood Culture - Preliminary Blood Venous No Growth Day 1 Anaerobic Blood Culture - Preliminary No Growth Day 1 09/04/19 16:56 Aerobic Blood Culture - Preliminary Blood Venous No Growth Day 1 Anaerobic Blood Culture - Preliminary No Growth Day 1 Assess/Plan/Problems-Billing Assessment: - Patient Problems (1) Diverticulitis Current Visit: Yes Status: Acute Code(s): K57.92 - DVTRCLI OF INTEST, PART UNSP, W/O PERF OR ABSCESS W/O BLEED SNOMED Code(s): 637504032 Comment: diverticultis with microperforation 3rd episode appreciate surgery input continue ceftriaxone and flagyl with multiple antibiotic allergies clear liquid diet (2) Atrial fibrillation Current Visit: Yes Status: Acute Code(s): I48.91 - UNSPECIFIED ATRIAL FIBRILLATION SNOMED Code(s): 15614410 Comment: continue cardizem lovenox now instead of eliquis as pt may require surgical intervention (3) LINA (obstructive sleep apnea) Current Visit: Yes Status: Acute Code(s): G47.33 - OBSTRUCTIVE SLEEP APNEA ( ADULT) (PEDIATRIC) SNOMED Code(s): 94253364 Comment: prefers not to use cpap not sob
[2019-09-07] MEDS: Calcium Carbonate CHEW TAB* 500 MG (TUMS) PO PRN ×2 (19:28→23:35)
[2019-09-07] MEDS: Morphine INJ* 2 MG/ML 1 ML SYRINGE (TWO MG - NEW SYRINGE VERSION) IV PRN ×2 (19:38→23:35)
[2019-09-07] MEDS: Potassium Chlor TAB* 20 MEQ TAB.ER PO SCH (21:33)
[2019-09-07] MEDS: Pantoprazole IV* 40 MG IV SCH (21:34)
[2019-09-07] MEDS: Atenolol TAB* 25 MG PO SCH (21:52)
[2019-09-07] MEDS: cefTRIAXone(*) 1 GM in NS 0.9% 50 ML* 50 ML IVPB SCH (21:53)
[2019-09-08] MEDS: metroNIDAZOLE IV 500 MG/100ML* 500 MG/100 ML BAG IVPB SCH ×3 (03:32→20:51)
[2019-09-08] MEDS: Calcium Carbonate CHEW TAB* 500 MG (TUMS) PO PRN (03:32)
[2019-09-08] MEDS: Morphine INJ* 2 MG/ML 1 ML SYRINGE (TWO MG - NEW SYRINGE VERSION) IV PRN (03:32)
[2019-09-08] MEDS: Levothyroxine TAB* 88 MCG TAB PO SCH (05:35)
[2019-09-08 06:14] LABS: ABS Lymphocytes 0.5 10^3/ul (1.0-4.8); ABS Monocytes 0.3 10^3/ul (0-0.8); ABS Neutrophils 4.3 10^3/ul (1.5-7.7); Eosinophil % 0.5 %; Hematocrit 28 % (35-47); Hemoglobin 9.7 g/dL (12.0-16.0); Lymphocyte % 10.2 %; Mean Corpuscular HGB Conc 35 g/dL (31-36); Mean Corpuscular Hemoglobin 33 pg (27-31); Mean Corpuscular Volume 94 fL (80-97); Mean Platelet Volume 9.1 fL (7.4-10.4); Platelet Count 198 10^3/uL (150-450); Red Cell Distribution Width 15 % (10-15); White Blood Count 5.1 10^3/uL (3.5-10.8)
[2019-09-08 06:25] LABS: BUN/Creatinine Ratio 5.5 (8-20); C Reactive Protein 142.58 mg/L (<8.01); EGFR African American 133.4 (>60); EGFR Non-African American 110.2 (>60); Potassium 3.8 mmol/L (3.5-5.0)
[2019-09-08] MEDS: Diltiazem TAB* 30 MG PO SCH (08:05)
[2019-09-08] MEDS: Cyanocobalamin TAB* 500 MCG PO SCH (08:05)
[2019-09-08] MEDS: Enoxaparin(*) 80 MG/0.8 ML SYR SUBCUT SCH ×2 (08:05→21:18)
[2019-09-08] MEDS: NS 0.9% 1000 ML** 1,000 ML IV SCH (08:13)
[2019-09-08] MEDS: Ondansetron INJ* 2 MG/ML VIAL IV PRN ×3 (08:18→21:19)
--- NOTE | 2019-09-08 08:22 | PN ---
Progress Note - Progress Note Date of Service: 09/08/19 Note: Surgical progress note S: States her abdominal pain is slightly less today, still "bloated". Nauseas, especially when ambulating. No emesis. Loose BM yesterday. O: Temp Pulse Resp BP Pulse Ox 98.4 F 114 20 109/75 96 09/08/19 07:30 09/08/19 07:30 09/08/19 07:30 09/08/19 07:30 09/08/19 07:30 Laboratory Last Values WBC 5.1 10^3/uL (3.5-10.8) 09/08/19 05:23 RBC 3.00 10^6 /uL (3.70-4.87) L 09/08/19 05:23 Hgb 9.7 g/dL (12.0-16.0) L 09/08/19 05:23 Hct 28 % (35-47) L 09/08/19 05:23 MCV 94 fL (80-97) 09/08/19 05:23 MCH 33 pg (27-31) H 09/08/19 05:23 MCHC 35 g/dL (31-36) 09/08/19 05:23 RDW 15 % (10-15) 09/08/19 05:23 Plt Count 198 10^3/uL (150-450) 09/08/19 05:23 MPV 9.1 fL (7.4-10.4) 09/08/19 05:23 Neut % (Auto) 82.9 % 09/08/19 05:23 Lymph % (Auto) 10.2 % 09/08/19 05:23 Power % (Auto) 5.7 % 09/08/19 05:23 Eos % (Auto) 0.5 % 09/08/19 05:23 Baso % (Auto) 0.7 % 09/08/19 05:23 Absolute Neuts (auto) 4.3 10^3/ul (1.5-7.7) 09/08/19 05:23 Absolute Lymphs (auto) 0.5 10^3/ul (1.0-4.8) L 09/08/19 05:23 Absolute Monos (auto) 0.3 10^3/ul (0-0.8) 09/08/19 05:23 Absolute Eos (auto) 0.0 10^3/ul (0-0.6) 09/08/19 05:23 Absolute Basos (auto) 0.0 10^3/ul (0-0.2) 09/08/19 05:23 Absolute Nucleated RBC 0.0 10^3/ul 09/08/19 05:23 Nucleated RBC % 0.0 09/08/19 05:23 INR (Anticoag Therapy) 1.92 (0.82-1.09) H 09/04/19 16:56 APTT 39.6 seconds (26.0-38.0) H 09/04/19 16:56 Sodium 138 mmol/L (135-145) 09/08/19 05:23 Potassium 3.8 mmol/L (3.5-5.0) 09/08/19 05:23 Chloride 108 mmol/L (101-111) 09/08/19 05:23 Carbon Dioxide 25 mmol/L (22-32) 09/08/19 05:23 Anion Gap 5 mmol/L (2-11) 09/08/19 05:23 BUN 3 mg/dL (6-24) L 09/08/19 05:23 Creatinine 0.55 mg/dL (0.51-0.95) 09/08/19 05:23 Est GFR ( Amer) 133.4 (>60) 09/08/19 05:23 Est GFR (Non-Af Amer) 110.2 (>60) 09/08/19 05:23 BUN/Creatinine Ratio 5.5 (8-20) L 09/08/19 05:23 Glucose 108 mg/dL (70-100) H 09/08/19 05:23 Lactic Acid 0.7 mmol/L (0.5-2.0) 09/04/19 16:56 Calcium 8.0 mg/dL (8.6-10.3) L 09/08/19 05:23 Total Bilirubin 0.80 mg/dL (0.2-1.0) 09/06/19 08:13 AST 10 U/L (13-39) L 09/06/19 08:13 ALT 11 U/L (7-52) 09/06/19 08:13 Alkaline Phosphatase 60 U/L (34-104) 09/06/19 08:13 C-Reactive Protein 142.58 mg/L (<8.01) H 09/08/19 05:23 Total Protein 5.7 g/dL (6.4-8.9) L 09/06/19 08:13 Albumin 3.2 g/dL (3.2-5.2) 09/06/19 08:13 Globulin 2.5 g/dL (2-4) 09/06/19 08:13 Albumin/Globulin Ratio 1.3 (1-3) 09/06/19 08:13 Lipase < 10 U/L (11.0-82.0) L 09/04/19 16:56 Urine Color Straw 09/04/19 19:30 Urine Appearance Clear 09/04/19 19:30 Urine pH 6.0 (5-9) 09/04/19 19:30 Ur Specific [place] 1.015 (1.010-1.030) 09/04/19 19:30 Urine Protein Negative (Negative) 09/04/19 19:30 Urine Ketones Negative (Negative) 09/04/19 19:30 Urine Blood Negative (Negative) 09/04/19 19:30 Urine Nitrate Negative (Negative) 09/04/19 19:30 Urine Bilirubin Negative (Negative) 09/04/19 19:30 Urine Urobilinogen Negative (Negative) 09/04/19 19:30 Ur Leukocyte Esterase Negative (Negative) 09/04/19 19:30 Urine Glucose Negative (Negative) 09/04/19 19:30 PEX General: Alert, in NAD. Heart: RRR. Lungs: CTAB. ABD: BS present. Distended and tympanitic. Tender diffusely, mostly in lower abdomen, umbilicus, and epigastrium. Extremities: Slight edema in LLE. Distal pulses intact bilaterally. Calves soft and nontender. Assessment and plan: 69 yo F with diverticulitis w/ micro perforation. Slow to improve. WBCs trending downwards. Keep NPO for now. May get CT scan today for re -evaluation. Continue ABX.
--- NOTE | 2019-09-08 09:24 | PN ---
Progress Note - Progress Note Date of Service: 09/08/19 Note: Patient seen and examined CT from admission reviewed She still has suprapubic pain--no flatus, no N/V, no BM Voiding without difficulty PEX:Afebrile for 24 hours, AFIB Abd is soft and slightly distended. Bowel sounds are present and are hyperactive throughout, not high pitched or tinkling. Tenderness in suprapubic/ LLQ with some guarding, no peritoneal irritation, no generalized pain. Laboratory Results - last 24 hr 09/08/19 09/08/19 05:23 05:23 WBC 5.1 RBC 3.00 L Hgb 9.7 L Hct 28 L MCV 94 MCH 33 H MCHC 35 RDW 15 Plt Count 198 MPV 9.1 Neut % (Auto) 82.9 Lymph % (Auto) 10.2 [place] % (Auto) 5.7 Eos % (Auto) 0.5 Baso % (Auto) 0.7 Absolute Neuts (auto) 4.3 Absolute Lymphs (auto) 0.5 L Absolute Monos (auto) 0.3 Absolute Eos (auto) 0.0 Absolute Basos (auto) 0.0 Absolute Nucleated RBC 0.0 Nucleated RBC % 0.0 Sodium 138 Potassium 3.8 Chloride 108 Carbon Dioxide 25 Anion Gap 5 BUN 3 L Creatinine 0.55 Est GFR ( Amer) 133.4 Est GFR (Non-Af Amer) 110.2 BUN/Creatinine Ratio 5.5 L Glucose 108 H Calcium 8.0 L C-Reactive Protein 142.58 H IMPRESSION: Sigmoid diverticulitis with localized perforation. She has now been afebrile for 24 hours, WBC is normal and CRP is trending down. No evidence of sepsis or peritonitis. Would favor continued IV abx and observation. If no improvement next 24-48 hours, will plan CT scan. Hopefully laparotomy can be avoided as this would require colostomy. All of above discussed with her and she understands the treatment plan.
--- NOTE | 2019-09-08 16:25 | PN ---
Subjective Date of Service: 09/08/19 Interval History: fever subsided abd pain mildly improved Family History: Unchanged from Admission Past Medical History: Unchanged from Admission Objective Active Medications: Acetaminophen (Tylenol Tab*) 650 mg PO Q4H PRN PRN Reason: PAIN-MILD/TEMP >/= 100.4 Last Admin: 09/06/19 17:04 Dose: 650 mg Atenolol (Tenormin Tab*) 25 mg PO BEDTIME [facility] Last Admin: 09/07/19 21:52 Dose: 25 mg Calcium Carbonate (Tums*) 500 mg PO Q4H PRN PRN Reason: INDIGESTION Last Admin: 09/08/19 03:32 Dose: 500 mg Cyanocobalamin (Vitamin B12 Tab*) 1,000 mcg PO DAILY [facility] Last Admin: 09/08/19 08:05 Dose: 1,000 mcg Diltiazem HCl (Cardizem Tab*) 30 mg PO QAM [facility] Last Admin: 09/08/19 08:05 Dose: 30 mg Enoxaparin Sodium (Lovenox(*)) 80 mg SUBCUT Q12H [facility] Last Admin: 09/08/19 08:05 Dose: 80 mg Metronidazole/Sodium Chloride (Flagyl 500 Mg Ivpb*) 500 mg in 100 mls @ 100 mls /hr IVPB Q8H [facility] Last Admin: 09/08/19 11:16 Dose: 100 mls/hr Ceftriaxone Sodium 1 gm/ (Sodium Chloride) 50 mls @ 100 mls/hr IVPB Q24H [facility] Last Admin: 09/07/19 21:53 Dose: 100 mls/hr Levothyroxine Sodium (Synthroid Tab*) 88 mcg PO QAM@0600 [facility] Last Admin: 09/08/19 05:35 Dose: 88 mcg Morphine Sulfate (Morphine Inj (Syringe))*) 2 mg IV Q4H PRN PRN Reason: PAIN - SEVERE Last Admin: 09/08/19 03:32 Dose: 2 mg Ondansetron HCl (Zofran Inj*) 4 mg IV Q6H PRN PRN Reason: NAUSEA Last Admin: 09/08/19 15:15 Dose: 4 mg Oxycodone/Acetaminophen (Percocet 5/325 Tab*) 1 tab PO Q4H PRN PRN Reason: PAIN - MODERATE Last Admin: 04/16/20 10:59 Dose: 1 tab Oxycodone/Acetaminophen (Percocet 5/325 Tab*) 2 tab PO Q4H PRN PRN Reason: moderately severe pain Pantoprazole Sodium (Protonix Iv*) 40 mg IV BEDTIME [facility] Last Admin: 09/07/19 21:34 Dose: 40 mg Potassium Chloride (Klor Con Er Tab*) 40 meq PO BEDTIME [facility] Last Admin: 09/07/19 21:33 Dose: Not Given Torsemide (Torsemide) 10 mg PO DAILY [facility] Vital Signs - 8 hr 09/08/19 09/08/19 10:52 15:09 Temperature 97.3 F 98.5 F Pulse Rate 62 93 Respiratory 18 12 Rate Blood Pressure 122/63 119/70 (mmHg) O2 Sat by Pulse 94 94 Oximetry Oxygen Devices in Use Now: Nasal Cannula Eyes: No Scleral Icterus Ears/Nose/Mouth/Throat: NL Teeth, Lips, Gums Respiratory: Symmetrical Chest Expansion and Respiratory Effort, Clear to Auscultation Cardiovascular: NL Sounds; No Murmurs; No JVD Abdominal: - - no rebound no guarding tenderness on palpation lower quadrants Lymphatic: No Auricular Adenopathy Extremities: - - edema present Neurological: Alert and Oriented x 3 Result Diagrams: 09/08/19 05:23 09/08/19 05:23 Microbiology and Other Data: Microbiology 09/04/19 16:56 Aerobic Blood Culture - Preliminary Blood Venous No Growth Day 1 Anaerobic Blood Culture - Preliminary No Growth Day 1 09/04/19 16:56 Aerobic Blood Culture - Preliminary Blood Venous No Growth Day 1 Anaerobic Blood Culture - Preliminary No Growth Day 1 Assess/Plan/Problems-Billing Assessment: - Patient Problems (1) Diverticulitis Current Visit: Yes Status: Acute Code(s): K57.92 - DVTRCLI OF INTEST, PART UNSP, W/O PERF OR ABSCESS W/O BLEED SNOMED Code(s): 087174366 Comment: diverticultis with microperforation 3rd episode appreciate surgery input continue ceftriaxone and flagyl with multiple antibiotic allergies sips of clear (2) Atrial fibrillation Current Visit: Yes Status: Acute Code(s): I48.91 - UNSPECIFIED ATRIAL FIBRILLATION SNOMED Code(s): 03693899 Comment: continue cardizem lovenox now instead of eliquis as pt may require surgical intervention (3) LINA (obstructive sleep apnea) Current Visit: Yes Status: Acute Code(s): G47.33 - OBSTRUCTIVE SLEEP APNEA ( ADULT) (PEDIATRIC) SNOMED Code(s): 50794013 Comment: prefers not to use cpap not sob
[2019-09-08] MEDS: Torsemide TAB 10 MG PO SCH (16:46)
[2019-09-08] MEDS: Atenolol TAB* 25 MG PO SCH (21:03)
[2019-09-08] MEDS: Pantoprazole IV* 40 MG IV SCH (21:04)
[2019-09-08] MEDS: Potassium Chloride* LIQUID 20 MEQ/15 ML UDC PO SCH ×2 (21:19→21:25)
[2019-09-08] MEDS: cefTRIAXone(*) 1 GM in NS 0.9% 50 ML* 50 ML IVPB SCH (21:34)
[2019-09-08] MEDS: oxyCODONE/Acetamin 5/325 MG* TAB PO PRN (23:40)
[2019-09-09] MEDS: metroNIDAZOLE IV 500 MG/100ML* 500 MG/100 ML BAG IVPB SCH ×2 (03:27→11:39)
[2019-09-09] MEDS: oxyCODONE/Acetamin 5/325 MG* TAB PO PRN (04:02)
[2019-09-09] MEDS: Calcium Carbonate CHEW TAB* 500 MG (TUMS) PO PRN (05:40)
[2019-09-09] MEDS: Ondansetron INJ* 2 MG/ML VIAL IV PRN ×4 (05:40→21:37)
[2019-09-09 06:02] LABS: ABS Eosinophils 0.1 10^3/ul (0-0.6); ABS Lymphocytes 0.7 10^3/ul (1.0-4.8); ABS Monocytes 0.3 10^3/ul (0-0.8); ABS Neutrophils 3.5 10^3/ul (1.5-7.7); Eosinophil % 1.1 %; Hematocrit 31 % (35-47); Hemoglobin 10.6 g/dL (12.0-16.0); Lymphocyte % 15.7 %; Mean Corpuscular HGB Conc 34 g/dL (31-36); Mean Corpuscular Hemoglobin 32 pg (27-31); Mean Corpuscular Volume 93 fL (80-97); Mean Platelet Volume 9.4 fL (7.4-10.4); Platelet Count 250 10^3/uL (150-450); Red Blood Count 3.32 10^6 /uL (3.70-4.87); Red Cell Distribution Width 15 % (10-15); White Blood Count 4.7 10^3/uL (3.5-10.8)
[2019-09-09 06:19] LABS: BUN/Creatinine Ratio 4.8 (8-20); Calcium 8.1 mg/dL (8.6-10.3); EGFR African American 116.2 (>60); Potassium 3.2 mmol/L (3.5-5.0)
[2019-09-09] MEDS: Levothyroxine TAB* 88 MCG TAB PO SCH (09:04)
[2019-09-09] MEDS ORDERED: Potassium Chlor TAB* 20 MEQ TAB.ER PO ONE (09:20)
[2019-09-09] MEDS: Torsemide TAB 10 MG PO SCH (10:19)
[2019-09-09] MEDS: Enoxaparin(*) 80 MG/0.8 ML SYR SUBCUT SCH ×2 (10:19→21:26)
[2019-09-09] MEDS: Cyanocobalamin TAB* 500 MCG PO SCH (10:21)
--- NOTE | 2019-09-09 10:25 | PN ---
Progress Note - Progress Note Date of Service: 09/09/19 SOAP: Subjective: Less abdominal pain today Has some nausea and dry mouth Had loose BM yesterday, no flatus Has severe headache Refused Flagyl-feels her symptoms secondary to this Objective: Temp Pulse Resp BP Pulse Ox 98 F 89 18 110/62 99 09/09/19 07:23 09/09/19 07:23 09/09/19 09:19 09/09/19 09:10 09/09/19 07:23 Intake and Output Last 24 Hours 09/07/19 09/08/19 09/09/19 09/10/19 06:59 06:59 06:59 06:59 Intake Total 3719 2598 1350 200 Output Total 820 386 8767 Balance 2769 1923 -2550 200 Intake: IV Fluids 1642 1795 990 NS (0.9%) 1642 1795 990 IVPB 317 323 160 ABX - CEFTRIAXONE 55 55 ABX - FLAGYL 317 268 105 Oral 1760 480 200 200 Output: Urine 641 497 3528 Emesis 25 Other: Estimated Void Medium Date of Last Bowel 09/06/19 09/08/19 Movement # Bowel Movements 1 1 1 Estimated Stool Amount Medium Small Small # Voids 1 PEX: Comfortable Abd is soft and mildly distended. Bowel sounds present and hyperactive but not high pitched or tinkling Mild tenderness LLQ and suprapubic area without peritoneal irritation, mild guarding. Laboratory Results - last 24 hr 09/09/19 09/09/19 05:24 05:24 WBC 4.7 RBC 3.32 L Hgb 10.6 L Hct 31 L MCV 93 MCH 32 H MCHC 34 RDW 15 Plt Count 250 MPV 9.4 Neut % (Auto) 75.3 Lymph % (Auto) 15.7 [place] % (Auto) 7.1 Eos % (Auto) 1.1 Baso % (Auto) 0.8 Absolute Neuts (auto) 3.5 Absolute Lymphs (auto) 0.7 L Absolute Monos (auto) 0.3 Absolute Eos (auto) 0.1 Absolute Basos (auto) 0.0 Absolute Nucleated RBC 0.0 Nucleated RBC % 0.0 Sodium 139 Potassium 3.2 L Chloride 104 Carbon Dioxide 27 Anion Gap 8 BUN 3 L Creatinine 0.62 Est GFR ( Amer) 116.2 Est GFR (Non-Af Amer) 96.0 BUN/Creatinine Ratio 4.8 L Glucose 109 H Calcium 8.1 L Assessment: Sigmoid diverticulitis-clinically improving-no fever, normal WBC and she is having less pain and exam less tenderness Nausea and headache-?? secondary to flagyl which she has refused. Plan: Sips of clears, popsicles and ice chips Continue IV abx-I am not sure the adequacy of ceftriaxone alone for diverticulitis and may need a second agent to adequately cover-discuss with hospitalist. She has multiple allergies. Hold off on follow up CT as long is she is clinically improving.
[2019-09-09] MEDS: Acetaminophen TAB* 325 MG PO PRN (12:17)
[2019-09-09] MEDS: Diltiazem TAB* 30 MG PO SCH (13:51)
[2019-09-09] MEDS: Ertapenem* 1 GM in NS 0.9% 50 ML* 50 ML IVPB SCH (14:58)
--- NOTE | 2019-09-09 15:19 | PN ---
Subjective Date of Service: 09/09/19 Interval History: Reports that the does not want to take flagyl as it is making her nauseous ,has headaches, feels poorly. she is not sure if it is the flagyl or ceftriaxone. reviewed pcn allergy with pt.she thinks it was seizures when she was 7 but is not sure .reviewed her allergies.she has anaphylactic shock listed for other antibiotics and allergens eventhough pcn allergy listed as unknown reaction. Family History: Unchanged from Admission Past Medical History: Unchanged from Admission Objective Active Medications: Acetaminophen (Tylenol Tab*) 650 mg PO Q4H PRN PRN Reason: PAIN-MILD/TEMP >/= 100.4 Last Admin: 09/09/19 12:17 Dose: 650 mg Atenolol (Tenormin Tab*) 25 mg PO BEDTIME [facility] Last Admin: 09/08/19 21:03 Dose: 25 mg Calcium Carbonate (Tums*) 500 mg PO Q4H PRN PRN Reason: INDIGESTION Last Admin: 09/09/19 05:40 Dose: 500 mg Cyanocobalamin (Vitamin B12 Tab*) 1,000 mcg PO DAILY [facility] Last Admin: 09/09/19 10:21 Dose: Not Given Diltiazem HCl (Cardizem Tab*) 30 mg PO QAM [facility] Last Admin: 09/09/19 13:51 Dose: 30 mg Enoxaparin Sodium (Lovenox(*)) 80 mg SUBCUT Q12H [facility] Last Admin: 09/09/19 10:19 Dose: 80 mg Ertapenem 1 gm/ Sodium (Chloride) 50 mls @ 100 mls/hr IVPB Q24H [facility] Last Admin: 09/09/19 14:58 Dose: 100 mls/hr Levothyroxine Sodium (Synthroid Tab*) 88 mcg PO QAM@0600 [facility] Last Admin: 09/09/19 09:04 Dose: Not Given Morphine Sulfate (Morphine Inj (Syringe))*) 2 mg IV Q4H PRN PRN Reason: PAIN - SEVERE Last Admin: 09/08/19 03:32 Dose: 2 mg Oxycodone/Acetaminophen (Percocet 5/325 Tab*) 1 tab PO Q4H PRN PRN Reason: PAIN - MODERATE Last Admin: 09/09/19 04:02 Dose: 1 tab Oxycodone/Acetaminophen (Percocet 5/325 Tab*) 2 tab PO Q4H PRN PRN Reason: moderately severe pain Pantoprazole Sodium (Protonix Iv*) 40 mg IV BEDTIME [facility] Last Admin: 09/08/19 21:04 Dose: 40 mg Torsemide (Torsemide) 10 mg PO Q48HR [facility] Vital Signs - 8 hr 09/09/19 09/09/19 09/09/19 07:23 09:10 09:19 Temperature 98 F Pulse Rate 89 Respiratory 17 18 Rate Blood Pressure 135/70 110/62 (mmHg) O2 Sat by Pulse 99 Oximetry 09/09/19 11:49 Temperature 98.1 F Pulse Rate 118 Respiratory 17 Rate Blood Pressure 132/81 (mmHg) O2 Sat by Pulse 99 Oximetry Oxygen Devices in Use Now: Nasal Cannula Ears/Nose/Mouth/Throat: NL Teeth, Lips, Gums Respiratory: Symmetrical Chest Expansion and Respiratory Effort Cardiovascular: RRR Abdominal: - - less distended no rebound no guarding Extremities: No Edema Neurological: Alert and Oriented x 3 Result Diagrams: 09/09/19 05:24 09/09/19 05:24 Microbiology and Other Data: Microbiology 09/04/19 16:56 Aerobic Blood Culture - Preliminary Blood Venous No Growth Day 1 Anaerobic Blood Culture - Preliminary No Growth Day 1 09/04/19 16:56 Aerobic Blood Culture - Preliminary Blood Venous No Growth Day 1 Anaerobic Blood Culture - Preliminary No Growth Day 1 Assess/Plan/Problems-Billing Assessment: - Patient Problems (1) Diverticulitis Current Visit: Yes Status: Acute Code(s): K57.92 - DVTRCLI OF INTEST, PART UNSP, W/O PERF OR ABSCESS W/O BLEED SNOMED Code(s): 857898178 Comment: diverticultis with microperforation 3rd episode appreciate surgery input advance to clear liquid diet pt has multiple antibiotic allergies and does not want to take flagyl. Zosyn would be a good choice but her allergy to pcn is unknown however she has anaphylactic shock listed for other allergens,antibiotics. Reviewing with pharmacy she has not recd zosyn with us. Will start pt on Ertanepam once a day for diverticulitis.carbapenams can have a 10% cross reactivity in pts allergic to penicillins. Cephalosporins can also cross react about 20% in pts with pcn allergy and she seems to be tolerating ceftriaxone well. As Ertapenam is once a day dosing and in trying to avoid pcn, will try this first (2) Atrial fibrillation Current Visit: Yes Status: Acute Code(s): I48.91 - UNSPECIFIED ATRIAL FIBRILLATION SNOMED Code(s): 55485934 Comment: continue cardizem lovenox now instead of eliquis as pt may require surgical intervention (3) LINA (obstructive sleep apnea) Current Visit: Yes Status: Acute Code(s): G47.33 - OBSTRUCTIVE SLEEP APNEA ( ADULT) (PEDIATRIC) SNOMED Code(s): 92358769 Comment: prefers not to use cpap not sob (4) Hypokalemia Current Visit: Yes Status: Acute Code(s): E87.6 - HYPOKALEMIA SNOMED Code( s): 27695945 Comment: replaced
[2019-09-09] MEDS: Pantoprazole IV* 40 MG IV SCH (21:25)
[2019-09-09] MEDS: Atenolol TAB* 25 MG PO SCH (21:26)
[2019-09-10] MEDS: Levothyroxine TAB* 88 MCG TAB PO SCH (05:26)
[2019-09-10 06:14] LABS: ABS Lymphocytes 0.9 10^3/ul (1.0-4.8); ABS Monocytes 0.3 10^3/ul (0-0.8); ABS Neutrophils 3.7 10^3/ul (1.5-7.7); Hematocrit 31 % (35-47); Hemoglobin 10.7 g/dL (12.0-16.0); Lymphocyte % 18.2 %; Mean Corpuscular HGB Conc 34 g/dL (31-36); Mean Corpuscular Hemoglobin 32 pg (27-31); Mean Corpuscular Volume 94 fL (80-97); Mean Platelet Volume 9.8 fL (7.4-10.4); Nucleated Red Blood Cells % 0.1; Platelet Count 208 10^3/uL (150-450); Red Blood Count 3.33 10^6 /uL (3.70-4.87); Red Cell Distribution Width 15 % (10-15)
[2019-09-10 06:31] LABS: BUN/Creatinine Ratio 5.1 (8-20); Calcium 8.2 mg/dL (8.6-10.3); EGFR Non-African American 101.7 (>60); Potassium 3.8 mmol/L (3.5-5.0)
[2019-09-10] MEDS: Enoxaparin(*) 80 MG/0.8 ML SYR SUBCUT SCH ×2 (09:29→21:38)
[2019-09-10] MEDS: Torsemide TAB 10 MG PO SCH (09:29)
[2019-09-10] MEDS: Ondansetron INJ* 2 MG/ML VIAL IV PRN ×2 (09:29→15:26)
[2019-09-10] MEDS: Cyanocobalamin TAB* 500 MCG PO SCH (09:29)
[2019-09-10] MEDS: Diltiazem TAB* 30 MG PO SCH (09:29)
[2019-09-10] MEDS: Ertapenem* 1 GM in NS 0.9% 50 ML* 50 ML IVPB SCH (15:25)
--- NOTE | 2019-09-10 15:58 | PN ---
Progress Note - Progress Note Date of Service: 09/10/19 SOAP: Subjective: Continues to feel better Abdominal pain improved Tolerating some clear liquids and would like some more Several loose small BM's Objective: Temp Pulse Resp BP Pulse Ox 98.1 F 90 16 112/69 91 09/10/19 15:26 09/10/19 15:26 09/10/19 15:26 09/10/19 15:26 09/10/19 15:26 Intake & Output 09/08/19 09/09/19 09/10/19 09/11/19 06:59 06:59 06:59 06:59 Intake Total 2598 1350 510 240 Output Total 675 3900 400 2150 Balance 1923 -2550 110 -1910 Intake: IV Fluids 1795 990 30 NS (0.9%) 1795 990 30 IVPB 323 160 70 ABX - CEFTRIAXONE 55 55 ABX - FLAGYL 268 105 Ertrapenem 70 Oral 480 200 410 240 Output: Urine 650 3900 400 2150 Emesis 25 Other: Estimated Void Medium Date of Last Bowel 09/08/19 Movement # Bowel Movements 1 1 1 0 Estimated Stool Amount Small Small Small Medium # Voids 1 PEX: Abd is soft and non-distended. Bowel sounds present. Minimal LLQ tenderness, no guarding or mass Assessment: Sigmoid diverticulitis-improving now on Ertapenem-changed due to antibiotic side effects, she is tolerating well Plan: Advance diet-clear liquids today Ertapenem
--- NOTE | 2019-09-10 16:29 | PN ---
Subjective Date of Service: 09/10/19 Interval History: Reports feeling better. Still nauseous.But headache and other side effects improved Family History: Unchanged from Admission Past Medical History: Unchanged from Admission Objective Active Medications: Acetaminophen (Tylenol Tab*) 650 mg PO Q4H PRN PRN Reason: PAIN-MILD/TEMP >/= 100.4 Last Admin: 09/09/19 12:17 Dose: 650 mg Atenolol (Tenormin Tab*) 25 mg PO BEDTIME [facility] Last Admin: 09/09/19 21:26 Dose: 25 mg Calcium Carbonate (Tums*) 500 mg PO Q4H PRN PRN Reason: INDIGESTION Last Admin: 09/09/19 05:40 Dose: 500 mg Cyanocobalamin (Vitamin B12 Tab*) 1,000 mcg PO DAILY [facility] Last Admin: 09/10/19 09:29 Dose: 1,000 mcg Diltiazem HCl (Cardizem Tab*) 30 mg PO QAM [facility] Last Admin: 09/10/19 09:29 Dose: 30 mg Enoxaparin Sodium (Lovenox(*)) 80 mg SUBCUT Q12H [facility] Last Admin: 09/10/19 09:29 Dose: 80 mg Ertapenem 1 gm/ Sodium (Chloride) 50 mls @ 100 mls/hr IVPB Q24H [facility] Last Admin: 09/10/19 15:25 Dose: 100 mls/hr Levothyroxine Sodium (Synthroid Tab*) 88 mcg PO QAM@0600 [facility] Last Admin: 09/10/19 05:26 Dose: 88 mcg Morphine Sulfate (Morphine Inj (Syringe))*) 2 mg IV Q4H PRN PRN Reason: PAIN - SEVERE Last Admin: 09/08/19 03:32 Dose: 2 mg Ondansetron HCl (Zofran Inj*) 4 mg IV Q4H PRN PRN Reason: NAUSEA Last Admin: 09/10/19 15:26 Dose: 4 mg Oxycodone/Acetaminophen (Percocet 5/325 Tab*) 1 tab PO Q4H PRN PRN Reason: PAIN - MODERATE Last Admin: 09/09/19 04:02 Dose: 1 tab Oxycodone/Acetaminophen (Percocet 5/325 Tab*) 2 tab PO Q4H PRN PRN Reason: moderately severe pain Pantoprazole Sodium (Protonix Iv*) 40 mg IV BEDTIME [facility] Last Admin: 09/09/19 21:25 Dose: 40 mg Torsemide (Torsemide) 10 mg PO Q48HR [facility] Last Admin: 09/10/19 09:29 Dose: 10 mg Vital Signs - 8 hr 09/10/19 09/10/19 11:08 15:26 Temperature 97.8 F 98.1 F Pulse Rate 122 90 Respiratory 16 16 Rate Blood Pressure 116/71 112/69 (mmHg) O2 Sat by Pulse 92 91 Oximetry Oxygen Devices in Use Now: Nasal Cannula Ears/Nose/Mouth/Throat: NL Teeth, Lips, Gums Neck: NL Appearance and Movements; NL JVP Respiratory: Symmetrical Chest Expansion and Respiratory Effort, Clear to Auscultation Cardiovascular: NL Sounds; No Murmurs; No JVD Abdominal: NL Sounds; No Tenderness; No Distention Extremities: No Edema Neurological: Alert and Oriented x 3 Result Diagrams: 09/10/19 05:45 09/10/19 05:45 Microbiology and Other Data: Microbiology 09/04/19 16:56 Aerobic Blood Culture - Preliminary Blood Venous No Growth Day 1 Anaerobic Blood Culture - Preliminary No Growth Day 1 09/04/19 16:56 Aerobic Blood Culture - Preliminary Blood Venous No Growth Day 1 Anaerobic Blood Culture - Preliminary No Growth Day 1 Assess/Plan/Problems-Billing Assessment: - Patient Problems (1) Diverticulitis Current Visit: Yes Status: Acute Code(s): K57.92 - DVTRCLI OF INTEST, PART UNSP, W/O PERF OR ABSCESS W/O BLEED SNOMED Code(s): 047025842 Comment: diverticultis with microperforation 3rd episode appreciate surgery input advance to clear liquid diet pt has multiple antibiotic allergies and does not want to take flagyl. Zosyn would be a good choice but her allergy to pcn is unknown however she has anaphylactic shock listed for other allergens,antibiotics. Reviewing with pharmacy she has not recd zosyn with us. Started on Ertanepam once a day for diverticulitis.carbapenams can have a 10% cross reactivity in pts allergic to penicillins. Cephalosporins can also cross react about 20% in pts with pcn allergy and she seems to be tolerating ceftriaxone well. As Ertapenam is once a day dosing and in trying to avoid pcn,tried it first She is responding well to it (2) Atrial fibrillation Current Visit: Yes Status: Acute Code(s): I48.91 - UNSPECIFIED ATRIAL FIBRILLATION SNOMED Code(s): 16523536 Comment: continue cardizem lovenox now instead of eliquis as pt may require surgical intervention (3) LINA (obstructive sleep apnea) Current Visit: Yes Status: Acute Code(s): G47.33 - OBSTRUCTIVE SLEEP APNEA ( ADULT) (PEDIATRIC) SNOMED Code(s): 29735038 Comment: prefers not to use cpap not sob (4) Hypokalemia Current Visit: Yes Status: Acute Code(s): E87.6 - HYPOKALEMIA SNOMED Code( s): 34690618 Comment: replaced
[2019-09-10] MEDS: Acetaminophen TAB* 325 MG PO PRN (19:39)
[2019-09-10] MEDS: Atenolol TAB* 25 MG PO SCH (21:38)
[2019-09-10] MEDS: Pantoprazole IV* 40 MG IV SCH (21:38)
[2019-09-11] MEDS: Levothyroxine TAB* 88 MCG TAB PO SCH (05:48)
[2019-09-11 06:04] LABS: ABS Basophils 0.1 10^3/ul (0-0.2); ABS Eosinophils 0.1 10^3/ul (0-0.6); ABS Lymphocytes 1.1 10^3/ul (1.0-4.8); ABS Monocytes 0.4 10^3/ul (0-0.8); ABS Neutrophils 2.8 10^3/ul (1.5-7.7); Eosinophil % 1.2 %; Hematocrit 33 % (35-47); Hemoglobin 11.2 g/dL (12.0-16.0); Lymphocyte % 25.9 %; Mean Corpuscular HGB Conc 34 g/dL (31-36); Mean Corpuscular Hemoglobin 31 pg (27-31); Mean Corpuscular Volume 93 fL (80-97); Mean Platelet Volume 9.2 fL (7.4-10.4); Nucleated Red Blood Cells % 0.1; Platelet Count 297 10^3/uL (150-450); Red Blood Count 3.58 10^6 /uL (3.70-4.87); Red Cell Distribution Width 15 % (10-15); White Blood Count 4.4 10^3/uL (3.5-10.8)
[2019-09-11 06:18] LABS: BUN/Creatinine Ratio 4.9 (8-20); CRP High Sensitivity 30.13 mg/L (<2.00); Calcium 8.3 mg/dL (8.6-10.3); EGFR African American 118.4 (>60); EGFR Non-African American 97.8 (>60); Potassium 3.2 mmol/L (3.5-5.0)
[2019-09-11] MEDS: Ondansetron INJ* 2 MG/ML VIAL IV PRN ×2 (07:18→15:30)
--- NOTE | 2019-09-11 09:06 | PN ---
Progress Note - Progress Note Date of Service: 09/11/19 Note: Surgery Progress: S: HD #7. Day #3 Ertapenem. Continues to improve overall; still has headache ( Tylenol doesn't help) and nausea, yet she feels like eating. Passing loose stool. No appreciable abdominal pain. O: Vital Signs - 8 hr 09/11/19 09/11/19 09/11/19 04:10 07:19 07:24 Temperature 98.0 F 97.4 F Pulse Rate 75 54 Respiratory 18 16 16 Rate Blood Pressure 124/69 130/70 (mmHg) O2 Sat by Pulse 96 90 Oximetry Intake and Output Last 24 Hours 09/09/19 09/10/19 09/11/19 09/12/19 06:59 06:59 06:59 06:59 Intake Total 1350 510 240 Output Total 3900 400 2700 Balance -2550 110 -2460 Intake: IV Fluids 990 30 NS (0.9%) 990 30 IVPB 160 70 ABX - CEFTRIAXONE 55 ABX - FLAGYL 105 Ertrapenem 70 Oral 200 410 240 Output: Urine 3900 400 2700 Other: Date of Last Bowel 09/08/19 Movement # Bowel Movements 1 1 0 Estimated Stool Amount Small Small Medium Gen: sitting up in bed; appears comfortable Heart: irreg Lungs: clear ant Abd: +BS; less distended. Soft; minimal suprapubic and LLQ tenderness (much improved since my last exam 09/06). Labs: Laboratory Tests 09/11/19 09/11/19 05:22 05:22 WBC 4.4 Potassium 3.2 L C-React Prot High Sens 30.13 H A: diverticulitis w/ micro perf, improving P: will adv to full liqs. We discussed abx upon discharge: either a trial of Augmentin while here or continuation of ertapenem as an outpt. Will discuss w/ Dr. Parekh.
[2019-09-11] MEDS: Diltiazem TAB* 30 MG PO SCH (09:16)
[2019-09-11] MEDS: Cyanocobalamin TAB* 500 MCG PO SCH (09:16)
[2019-09-11] MEDS: Enoxaparin(*) 80 MG/0.8 ML SYR SUBCUT SCH ×2 (09:16→21:03)
[2019-09-11] MEDS ORDERED: Potassium Chlor TAB* 20 MEQ TAB.ER PO ONE (12:48)
[2019-09-11] MEDS: Ertapenem* 1 GM in NS 0.9% 50 ML* 50 ML IVPB SCH (15:30)
--- NOTE | 2019-09-11 16:09 | PN ---
Subjective Date of Service: 09/11/19 Interval History: Reports improvement in abd pain,nausea,vomitting. Diarrhea today Family History: Unchanged from Admission Past Medical History: Unchanged from Admission Objective Active Medications: Acetaminophen (Tylenol Tab*) 650 mg PO Q4H PRN PRN Reason: PAIN-MILD/TEMP >/= 100.4 Last Admin: 09/10/19 19:39 Dose: 650 mg Atenolol (Tenormin Tab*) 25 mg PO BEDTIME [facility] Last Admin: 09/10/19 21:38 Dose: 25 mg Calcium Carbonate (Tums*) 500 mg PO Q4H PRN PRN Reason: INDIGESTION Last Admin: 09/09/19 05:40 Dose: 500 mg Cyanocobalamin (Vitamin B12 Tab*) 1,000 mcg PO DAILY [facility] Last Admin: 09/11/19 09:16 Dose: 1,000 mcg Diltiazem HCl (Cardizem Tab*) 30 mg PO QAM [facility] Last Admin: 09/11/19 09:16 Dose: 30 mg Enoxaparin Sodium (Lovenox(*)) 80 mg SUBCUT Q12H [facility] Last Admin: 09/11/19 09:16 Dose: 80 mg Ertapenem 1 gm/ Sodium (Chloride) 50 mls @ 100 mls/hr IVPB Q24H [facility] Last Admin: 09/11/19 15:30 Dose: 100 mls/hr Levothyroxine Sodium (Synthroid Tab*) 88 mcg PO QAM@0600 [facility] Last Admin: 09/11/19 05:48 Dose: 88 mcg Morphine Sulfate (Morphine Inj (Syringe))*) 2 mg IV Q4H PRN PRN Reason: PAIN - SEVERE Last Admin: 09/08/19 03:32 Dose: 2 mg Ondansetron HCl (Zofran Inj*) 4 mg IV Q4H PRN PRN Reason: NAUSEA Last Admin: 09/11/19 15:30 Dose: 4 mg Oxycodone/Acetaminophen (Percocet 5/325 Tab*) 1 tab PO Q4H PRN PRN Reason: PAIN - MODERATE Last Admin: 09/09/19 04:02 Dose: 1 tab Oxycodone/Acetaminophen (Percocet 5/325 Tab*) 2 tab PO Q4H PRN PRN Reason: moderately severe pain Pantoprazole Sodium (Protonix Iv*) 40 mg IV BEDTIME [facility] Last Admin: 09/10/19 21:38 Dose: 40 mg Potassium Chloride (Klor Con Er Tab*) 20 meq PO DAILY [facility] Torsemide (Torsemide) 10 mg PO Q48HR [facility] Last Admin: 09/10/19 09:29 Dose: 10 mg Vital Signs - 8 hr 09/11/19 15:19 Temperature 98.0 F Pulse Rate 100 Respiratory 16 Rate Blood Pressure 111/71 (mmHg) O2 Sat by Pulse 95 Oximetry Oxygen Devices in Use Now: Nasal Cannula Eyes: No Scleral Icterus Ears/Nose/Mouth/Throat: NL Teeth, Lips, Gums Neck: NL Appearance and Movements; NL JVP Respiratory: Symmetrical Chest Expansion and Respiratory Effort, Clear to Auscultation Cardiovascular: NL Sounds; No Murmurs; No JVD, RRR Abdominal: NL Sounds; No Tenderness; No Distention Extremities: No Edema Neurological: Alert and Oriented x 3 Result Diagrams: 09/11/19 05:22 09/11/19 05:22 Microbiology and Other Data: Microbiology 09/04/19 16:56 Aerobic Blood Culture - Preliminary Blood Venous No Growth Day 1 Anaerobic Blood Culture - Preliminary No Growth Day 1 09/04/19 16:56 Aerobic Blood Culture - Preliminary Blood Venous No Growth Day 1 Anaerobic Blood Culture - Preliminary No Growth Day 1 Assess/Plan/Problems-Billing Assessment: - Patient Problems (1) Diverticulitis Current Visit: Yes Status: Acute Code(s): K57.92 - DVTRCLI OF INTEST, PART UNSP, W/O PERF OR ABSCESS W/O BLEED SNOMED Code(s): 280971333 Comment: diverticultis with microperforation 3rd episode appreciate surgery input advanced to full liquid diet today from [employer] pt was on ceftriaxone and flagyl initially. She has multiple antibiotic allergies and does not want to take flagyl. Reported malaise, SOB,metallic taste ,nausea and feeling poorly and did not want to take flagyl Zosyn would be a good choice but her allergy to pcn is unknown however she has anaphylactic shock listed for other allergens,antibiotics. Reviewing with pharmacy she has not recd zosyn with us. Started on Ertanepam once a day now for diverticulitis.carbapenams can have a 10% cross reactivity in pts allergic to penicillins. Cephalosporins can also cross react about 20% in pts with pcn allergy and she seems to be tolerating ceftriaxone well. As Ertapenam is once a day dosing and in trying to avoid pcn,tried it first She is responding well to it D/c soon on Ertapenam as outpt versus PO antibiotics ( eventhough this is limited with her multiple antibiotic allergies) (2) Atrial fibrillation Current Visit: Yes Status: Acute Code(s): I48.91 - UNSPECIFIED ATRIAL FIBRILLATION SNOMED Code(s): 29688739 Comment: continue cardizem lovenox now instead of eliquis as pt may require surgical intervention (3) LINA (obstructive sleep apnea) Current Visit: Yes Status: Acute Code(s): G47.33 - OBSTRUCTIVE SLEEP APNEA ( ADULT) (PEDIATRIC) SNOMED Code(s): 00923322 Comment: prefers not to use cpap not sob (4) Hypokalemia Current Visit: Yes Status: Acute Code(s): E87.6 - HYPOKALEMIA SNOMED Code( s): 06816724 Comment: replaced
[2019-09-11] MEDS: Lactobacillus Acidophilus* 1 TAB PO SCH (17:18)
[2019-09-11] MEDS: Atenolol TAB* 25 MG PO SCH (21:00)
[2019-09-11] MEDS: Pantoprazole IV* 40 MG IV SCH (21:01)
[2019-09-12 05:55] LABS: ABS Eosinophils 0.1 10^3/ul (0-0.6); ABS Lymphocytes 1.1 10^3/ul (1.0-4.8); ABS Monocytes 0.3 10^3/ul (0-0.8); ABS Neutrophils 2.5 10^3/ul (1.5-7.7); Eosinophil % 1.5 %; Hematocrit 31 % (35-47); Hemoglobin 10.9 g/dL (12.0-16.0); Lymphocyte % 26.8 %; Mean Corpuscular HGB Conc 35 g/dL (31-36); Mean Corpuscular Hemoglobin 32 pg (27-31); Mean Corpuscular Volume 92 fL (80-97); Mean Platelet Volume 8.7 fL (7.4-10.4); Platelet Count 293 10^3/uL (150-450); Red Blood Count 3.39 10^6 /uL (3.70-4.87); Red Cell Distribution Width 15 % (10-15)
[2019-09-12 06:12] LABS: BUN/Creatinine Ratio 4.8 (8-20); C Reactive Protein 21.73 mg/L (<8.01); Calcium 8.4 mg/dL (8.6-10.3); EGFR African American 116.2 (>60); Potassium 3.6 mmol/L (3.5-5.0)
[2019-09-12] MEDS: Levothyroxine TAB* 88 MCG TAB PO SCH (07:40)
[2019-09-12] MEDS: Enoxaparin(*) 80 MG/0.8 ML SYR SUBCUT SCH ×2 (09:58→21:45)
[2019-09-12] MEDS: Torsemide TAB 10 MG PO SCH (09:58)
[2019-09-12] MEDS: Cyanocobalamin TAB* 500 MCG PO SCH (09:58)
[2019-09-12] MEDS: Potassium Chlor TAB* 20 MEQ TAB.ER PO SCH (09:58)
[2019-09-12] MEDS: Diltiazem TAB* 30 MG PO SCH (09:58)
[2019-09-12] MEDS: Lactobacillus Acidophilus* 1 TAB PO SCH (09:58)
--- NOTE | 2019-09-12 11:31 | PN ---
Progress Note - Progress Note Date of Service: 09/12/19 Note: Surgery progress note S: Reports she is feeling even better today. Mild to no abdominal pain. No nausea, emesis, fever, chills. Ambulating without issue. Tolerating diet. Passing loose BMs. O: Temp Pulse Resp BP Pulse Ox 98.2 F 54 16 122/87 96 09/12/19 07:28 09/12/19 07:28 09/12/19 09:50 09/12/19 07:28 09/12/19 07:28 Laboratory Last Values WBC 4.0 10^3/uL (3.5-10.8) 09/12/19 05:21 RBC 3.39 10^6 /uL (3.70-4.87) L 09/12/19 05:21 Hgb 10.9 g/dL (12.0-16.0) L 09/12/19 05:21 Hct 31 % (35-47) L 09/12/19 05:21 MCV 92 fL (80-97) 09/12/19 05:21 MCH 32 pg (27-31) H 09/12/19 05:21 MCHC 35 g/dL (31-36) 09/12/19 05:21 RDW 15 % (10-15) 09/12/19 05:21 Plt Count 293 10^3/uL (150-450) 09/12/19 05:21 MPV 8.7 fL (7.4-10.4) 09/12/19 05:21 Neut % (Auto) 62.3 % 09/12/19 05:21 Lymph % (Auto) 26.8 % 09/12/19 05:21 [place] % (Auto) 8.2 % 09/12/19 05:21 Eos % (Auto) 1.5 % 09/12/19 05:21 Baso % (Auto) 1.2 % 09/12/19 05:21 Absolute Neuts (auto) 2.5 10^3/ul (1.5-7.7) 09/12/19 05:21 Absolute Lymphs (auto) 1.1 10^3/ul (1.0-4.8) 09/12/19 05:21 Absolute Monos (auto) 0.3 10^3/ul (0-0.8) 09/12/19 05:21 Absolute Eos (auto) 0.1 10^3/ul (0-0.6) 09/12/19 05:21 Absolute Basos (auto) 0.0 10^3/ul (0-0.2) 09/12/19 05:21 Absolute Nucleated RBC 0.0 10^3/ul 09/12/19 05:21 Nucleated RBC % 0.0 09/12/19 05:21 INR (Anticoag Therapy) 1.92 (0.82-1.09) H 09/04/19 16:56 APTT 39.6 seconds (26.0-38.0) H 09/04/19 16:56 Sodium 139 mmol/L (135-145) 09/12/19 05:21 Potassium 3.6 mmol/L (3.5-5.0) 09/12/19 05:21 Chloride 102 mmol/L (101-111) 09/12/19 05:21 Carbon Dioxide 30 mmol/L (22-32) 09/12/19 05:21 Anion Gap 7 mmol/L (2-11) 09/12/19 05:21 BUN 3 mg/dL (6-24) L 09/12/19 05:21 Creatinine 0.62 mg/dL (0.51-0.95) 09/12/19 05:21 Est GFR ( Amer) 116.2 (>60) 09/12/19 05:21 Est GFR (Non-Af Amer) 96.0 (>60) 09/12/19 05:21 BUN/Creatinine Ratio 4.8 (8-20) L 09/12/19 05:21 Glucose 93 mg/dL (70-100) 09/12/19 05:21 Lactic Acid 0.7 mmol/L (0.5-2.0) 09/04/19 16:56 Calcium 8.4 mg/dL (8.6-10.3) L 09/12/19 05:21 Total Bilirubin 0.80 mg/dL (0.2-1.0) 09/06/19 08:13 AST 10 U/L (13-39) L 09/06/19 08:13 ALT 11 U/L (7-52) 09/06/19 08:13 Alkaline Phosphatase 60 U/L (34-104) 09/06/19 08:13 C-Reactive Protein 21.73 mg/L (<8.01) H 09/12/19 05:21 C-React Prot High Sens 30.13 mg/L (<2.00) H 09/11/19 05:22 Total Protein 5.7 g/dL (6.4-8.9) L 09/06/19 08:13 Albumin 3.2 g/dL (3.2-5.2) 09/06/19 08:13 Globulin 2.5 g/dL (2-4) 09/06/19 08:13 Albumin/Globulin Ratio 1.3 (1-3) 09/06/19 08:13 Lipase < 10 U/L (11.0-82.0) L 09/04/19 16:56 Urine Color Straw 09/04/19 19:30 Urine Appearance Clear 09/04/19 19:30 Urine pH 6.0 (5-9) 09/04/19 19:30 Ur Specific [place] 1.015 (1.010-1.030) 09/04/19 19:30 Urine Protein Negative (Negative) 09/04/19 19:30 Urine Ketones Negative (Negative) 09/04/19 19:30 Urine Blood Negative (Negative) 09/04/19 19:30 Urine Nitrate Negative (Negative) 09/04/19 19:30 Urine Bilirubin Negative (Negative) 09/04/19 19:30 Urine Urobilinogen Negative (Negative) 09/04/19 19:30 Ur Leukocyte Esterase Negative (Negative) 09/04/19 19:30 Urine Glucose Negative (Negative) 09/04/19 19:30 PEX General: Alert, in NAD. HEENT: PERRLA. Oropharynx clear. Heart: Irregularly irregular. No murmurs, rubs, or gallups. Lungs: CTAB, no WRR. ABD: BS present. Soft, nondisteded. Mild tenderness in lower abdomen. No guarding or rebound tenderness. Extremities: Slight edema in LLE, none appreciated in right. Distal pulses intact bilaterally. Calves soft and nontender. Assessment and plan: 69 yo F with diverticulitis w/ microperforation. She is improving. Low fiber diet ordered. She may likely be ready tomorrow for discharge home on antibiotics.
--- NOTE | 2019-09-12 14:26 | PN ---
Subjective Date of Service: 09/12/19 Interval History: 69 year old woman with diverticulitis, tolerating liquids and soup though appetite is decreased. Some pain after eating. No nausea or vomiting. No fever or rash. Had 1 soft BM today. Family History: Unchanged from Admission Past Medical History: Unchanged from Admission Objective Active Medications: Acetaminophen (Tylenol Tab*) 650 mg PO Q4H PRN PRN Reason: PAIN-MILD/TEMP >/= 100.4 Last Admin: 09/10/19 19:39 Dose: 650 mg Atenolol (Tenormin Tab*) 25 mg PO BEDTIME [facility] Last Admin: 09/11/19 21:00 Dose: 25 mg Calcium Carbonate (Tums*) 500 mg PO Q4H PRN PRN Reason: INDIGESTION Last Admin: 09/09/19 05:40 Dose: 500 mg Cyanocobalamin (Vitamin B12 Tab*) 1,000 mcg PO DAILY [facility] Last Admin: 09/12/19 09:58 Dose: 1,000 mcg Diltiazem HCl (Cardizem Tab*) 30 mg PO QAM [facility] Last Admin: 09/12/19 09:58 Dose: 30 mg Enoxaparin Sodium (Lovenox(*)) 80 mg SUBCUT Q12H [facility] Last Admin: 09/12/19 09:58 Dose: 80 mg Ertapenem 1 gm/ Sodium (Chloride) 50 mls @ 100 mls/hr IVPB Q24H [facility] Last Admin: 09/11/19 15:30 Dose: 100 mls/hr Lactobacillus Rhamnosus (Lactobacillus Acidophilus*) 1 tab PO DAILY [facility] Last Admin: 09/12/19 09:58 Dose: 1 tab Levothyroxine Sodium (Synthroid Tab*) 88 mcg PO QAM@0600 [facility] Last Admin: 09/12/19 07:40 Dose: 88 mcg Ondansetron HCl (Zofran Inj*) 4 mg IV Q4H PRN PRN Reason: NAUSEA Last Admin: 09/11/19 15:30 Dose: 4 mg Oxycodone/Acetaminophen (Percocet 5/325 Tab*) 2 tab PO Q4H PRN PRN Reason: moderately severe pain Pantoprazole Sodium (Protonix Tab*) 40 mg PO DAILY [facility] Potassium Chloride (Klor Con Er Tab*) 20 meq PO DAILY [facility] Last Admin: 09/12/19 09:58 Dose: 20 meq Torsemide (Torsemide) 10 mg PO Q48HR [facility] Last Admin: 09/12/19 09:58 Dose: 10 mg Vital Signs - 8 hr 09/12/19 09/12/19 09/12/19 07:28 09:50 11:35 Temperature 36.8 C 36.6 C Pulse Rate 54 110 Respiratory 14 14 16 Rate Blood Pressure 122/87 119/95 (mmHg) O2 Sat by Pulse 96 95 Oximetry Oxygen Devices in Use Now: Nasal Cannula Eyes: No Scleral Icterus Ears/Nose/Mouth/Throat: Clear Oropharnyx Respiratory: Symmetrical Chest Expansion and Respiratory Effort, Clear to Auscultation Cardiovascular: NL Sounds; No Murmurs; No JVD, RRR Abdominal: NL Sounds; No Tenderness; No Distention Extremities: No Edema Skin: No Rash or Ulcers Neurological: Alert and Oriented x 3 Result Diagrams: 09/12/19 05:21 09/12/19 05:21 Microbiology and Other Data: Microbiology 09/04/19 16:56 Aerobic Blood Culture - Preliminary Blood Venous No Growth Day 1 Anaerobic Blood Culture - Preliminary No Growth Day 1 09/04/19 16:56 Aerobic Blood Culture - Preliminary Blood Venous No Growth Day 1 Anaerobic Blood Culture - Preliminary No Growth Day 1 Assess/Plan/Problems-Billing Assessment: - Patient Problems (1) Diverticulitis Current Visit: Yes Status: Acute Code(s): K57.92 - DVTRCLI OF INTEST, PART UNSP, W/O PERF OR ABSCESS W/O BLEED SNOMED Code(s): 181104994 Comment: with microperforation continue invanz, ordered for another week outpatient low residue diet (2) Atrial fibrillation Current Visit: Yes Status: Acute Code(s): I48.91 - UNSPECIFIED ATRIAL FIBRILLATION SNOMED Code(s): 70559836 Comment: continue cardizem and lovenox (changed from eliquis due to possible need for surgery) (3) LINA (obstructive sleep apnea) Current Visit: Yes Status: Acute Code(s): G47.33 - OBSTRUCTIVE SLEEP APNEA ( ADULT) (PEDIATRIC) SNOMED Code(s): 15500470 Comment: prefers not to use cpap (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
[2019-09-12] MEDS: Ertapenem* 1 GM in NS 0.9% 50 ML* 50 ML IVPB SCH (15:48)
[2019-09-12] MEDS: Atenolol TAB* 25 MG PO SCH (21:45)
[2019-09-13] MEDS: Levothyroxine TAB* 88 MCG TAB PO SCH (05:32)
[2019-09-13] MEDS: Cyanocobalamin TAB* 500 MCG PO SCH (08:32)
[2019-09-13] MEDS: Lactobacillus Acidophilus* 1 TAB PO SCH (08:32)
[2019-09-13] MEDS: Diltiazem TAB* 30 MG PO SCH (08:33)
[2019-09-13] MEDS: Pantoprazole TAB * 40 MG TAB PO SCH (08:33)
[2019-09-13] MEDS: Potassium Chlor TAB* 20 MEQ TAB.ER PO SCH (08:33)
[2019-09-13] MEDS: Enoxaparin(*) 80 MG/0.8 ML SYR SUBCUT SCH ×2 (08:33→21:45)
--- NOTE | 2019-09-13 10:02 | PN ---
Progress Note - Progress Note Date of Service: 09/13/19 SOAP: Subjective: []normal bm today appetite mixed, fatigue Objective: [] Temp Pulse Resp BP Pulse Ox 98.0 F 100 18 134/81 97 09/13/19 07:25 09/13/19 07:25 09/13/19 07:30 09/13/19 07:25 09/13/19 07:25 Laboratory Last Values WBC 4.0 10^3/uL (3.5-10.8) 09/12/19 05:21 RBC 3.39 10^6 /uL (3.70-4.87) L 09/12/19 05:21 Hgb 10.9 g/dL (12.0-16.0) L 09/12/19 05:21 Hct 31 % (35-47) L 09/12/19 05:21 MCV 92 fL (80-97) 09/12/19 05:21 MCH 32 pg (27-31) H 09/12/19 05:21 MCHC 35 g/dL (31-36) 09/12/19 05:21 RDW 15 % (10-15) 09/12/19 05:21 Plt Count 293 10^3/uL (150-450) 09/12/19 05:21 MPV 8.7 fL (7.4-10.4) 09/12/19 05:21 Neut % (Auto) 62.3 % 09/12/19 05:21 Lymph % (Auto) 26.8 % 09/12/19 05:21 [place] % (Auto) 8.2 % 09/12/19 05:21 Eos % (Auto) 1.5 % 09/12/19 05:21 Baso % (Auto) 1.2 % 09/12/19 05:21 Absolute Neuts (auto) 2.5 10^3/ul (1.5-7.7) 09/12/19 05:21 Absolute Lymphs (auto) 1.1 10^3/ul (1.0-4.8) 09/12/19 05:21 Absolute Monos (auto) 0.3 10^3/ul (0-0.8) 09/12/19 05:21 Absolute Eos (auto) 0.1 10^3/ul (0-0.6) 09/12/19 05:21 Absolute Basos (auto) 0.0 10^3/ul (0-0.2) 09/12/19 05:21 Absolute Nucleated RBC 0.0 10^3/ul 09/12/19 05:21 Nucleated RBC % 0.0 09/12/19 05:21 INR (Anticoag Therapy) 1.92 (0.82-1.09) H 09/04/19 16:56 APTT 39.6 seconds (26.0-38.0) H 09/04/19 16:56 Sodium 139 mmol/L (135-145) 09/12/19 05:21 Potassium 3.6 mmol/L (3.5-5.0) 09/12/19 05:21 Chloride 102 mmol/L (101-111) 09/12/19 05:21 Carbon Dioxide 30 mmol/L (22-32) 09/12/19 05:21 Anion Gap 7 mmol/L (2-11) 09/12/19 05:21 BUN 3 mg/dL (6-24) L 09/12/19 05:21 Creatinine 0.62 mg/dL (0.51-0.95) 09/12/19 05:21 Est GFR ( Amer) 116.2 (>60) 09/12/19 05:21 Est GFR (Non-Af Amer) 96.0 (>60) 09/12/19 05:21 BUN/Creatinine Ratio 4.8 (8-20) L 09/12/19 05:21 Glucose 93 mg/dL (70-100) 09/12/19 05:21 Lactic Acid 0.7 mmol/L (0.5-2.0) 09/04/19 16:56 Calcium 8.4 mg/dL (8.6-10.3) L 09/12/19 05:21 Total Bilirubin 0.80 mg/dL (0.2-1.0) 09/06/19 08:13 AST 10 U/L (13-39) L 09/06/19 08:13 ALT 11 U/L (7-52) 09/06/19 08:13 Alkaline Phosphatase 60 U/L (34-104) 09/06/19 08:13 C-Reactive Protein 21.73 mg/L (<8.01) H 09/12/19 05:21 C-React Prot High Sens 30.13 mg/L (<2.00) H 09/11/19 05:22 Total Protein 5.7 g/dL (6.4-8.9) L 09/06/19 08:13 Albumin 3.2 g/dL (3.2-5.2) 09/06/19 08:13 Globulin 2.5 g/dL (2-4) 09/06/19 08:13 Albumin/Globulin Ratio 1.3 (1-3) 09/06/19 08:13 Lipase < 10 U/L (11.0-82.0) L 09/04/19 16:56 Urine Color Straw 09/04/19 19:30 Urine Appearance Clear 09/04/19 19:30 Urine pH 6.0 (5-9) 09/04/19 19:30 Ur Specific [place] 1.015 (1.010-1.030) 09/04/19 19:30 Urine Protein Negative (Negative) 09/04/19 19:30 Urine Ketones Negative (Negative) 09/04/19 19:30 Urine Blood Negative (Negative) 09/04/19 19:30 Urine Nitrate Negative (Negative) 09/04/19 19:30 Urine Bilirubin Negative (Negative) 09/04/19 19:30 Urine Urobilinogen Negative (Negative) 09/04/19 19:30 Ur Leukocyte Esterase Negative (Negative) 09/04/19 19:30 Urine Glucose Negative (Negative) 09/04/19 19:30 abdomen soft Assessment: [] diverticulitis, slow progression Plan: [] con't abx, current plan
[2019-09-13] MEDS: Ondansetron INJ* 2 MG/ML VIAL IV PRN ×2 (10:18→21:44)
[2019-09-13] MEDS: cefTRIAXone(*) 1 GM in NS 0.9% 50 ML* 50 ML IVPB SCH (15:31)
--- NOTE | 2019-09-13 15:33 | PN ---
Subjective Date of Service: 09/13/19 Interval History: nausea and malaise persist and worse today; minimal left sided abdominal pain. Nausea worse with eating. Minimal flatus, small BM this AM. No fever. Family History: Unchanged from Admission Past Medical History: Unchanged from Admission Objective Active Medications: Acetaminophen (Tylenol Tab*) 650 mg PO Q4H PRN PRN Reason: PAIN-MILD/TEMP >/= 100.4 Last Admin: 09/10/19 19:39 Dose: 650 mg Atenolol (Tenormin Tab*) 25 mg PO BEDTIME [facility] Last Admin: 09/12/19 21:45 Dose: 25 mg Calcium Carbonate (Tums*) 500 mg PO Q4H PRN PRN Reason: INDIGESTION Last Admin: 09/09/19 05:40 Dose: 500 mg Cyanocobalamin (Vitamin B12 Tab*) 1,000 mcg PO DAILY [facility] Last Admin: 09/13/19 08:32 Dose: 1,000 mcg Diltiazem HCl (Cardizem Tab*) 30 mg PO QAM [facility] Last Admin: 09/13/19 08:33 Dose: 30 mg Enoxaparin Sodium (Lovenox(*)) 80 mg SUBCUT Q12H [facility] Last Admin: 09/13/19 08:33 Dose: 80 mg Ceftriaxone Sodium 1 gm/ (Sodium Chloride) 50 mls @ 100 mls/hr IVPB Q24H [facility] Lactobacillus Rhamnosus (Lactobacillus Acidophilus*) 1 tab PO DAILY [facility] Last Admin: 09/13/19 08:32 Dose: 1 tab Levothyroxine Sodium (Synthroid Tab*) 88 mcg PO QAM@0600 [facility] Last Admin: 09/13/19 05:32 Dose: 88 mcg Ondansetron HCl (Zofran Inj*) 4 mg IV Q4H PRN PRN Reason: NAUSEA Last Admin: 09/13/19 10:18 Dose: 4 mg Oxycodone/Acetaminophen (Percocet 5/325 Tab*) 2 tab PO Q4H PRN PRN Reason: moderately severe pain Pantoprazole Sodium (Protonix Tab*) 40 mg PO DAILY [facility] Last Admin: 09/13/19 08:33 Dose: 40 mg Potassium Chloride (Klor Con Er Tab*) 20 meq PO DAILY [facility] Last Admin: 09/13/19 08:33 Dose: 20 meq Torsemide (Torsemide) 10 mg PO Q48HR [facility] Last Admin: 09/12/19 09:58 Dose: 10 mg Vital Signs - 8 hr 09/13/19 09/13/19 09/13/19 07:30 11:15 15:26 Temperature 36.4 C 36.9 C Pulse Rate 101 125 Respiratory 16 16 20 Rate Blood Pressure 121/82 133/91 (mmHg) O2 Sat by Pulse 93 96 Oximetry Oxygen Devices in Use Now: Nasal Cannula Result Diagrams: 09/12/19 05:21 09/12/19 05:21 Microbiology and Other Data: Microbiology 09/04/19 16:56 Aerobic Blood Culture - Preliminary Blood Venous No Growth Day 1 Anaerobic Blood Culture - Preliminary No Growth Day 1 09/04/19 16:56 Aerobic Blood Culture - Preliminary Blood Venous No Growth Day 1 Anaerobic Blood Culture - Preliminary No Growth Day 1 Assess/Plan/Problems-Billing Assessment: - Patient Problems (1) Diverticulitis Current Visit: Yes Status: Acute Code(s): K57.92 - DVTRCLI OF INTEST, PART UNSP, W/O PERF OR ABSCESS W/O BLEED SNOMED Code(s): 082804620 Comment: with microperforation continue iv antibiotics, recheck labs tomorrow low residue diet (2) Nausea Current Visit: Yes Status: Acute Code(s): R11.0 - NAUSEA SNOMED Code(s): 597654268 Comment: could be related to diverticular process or invanz, change to ceftriaxone (3) Atrial fibrillation Current Visit: Yes Status: Acute Code(s): I48.91 - UNSPECIFIED ATRIAL FIBRILLATION SNOMED Code(s): 30387266 Comment: continue cardizem and lovenox (changed from eliquis due to possible need for surgery) (4) LINA (obstructive sleep apnea) Current Visit: Yes Status: Acute Code(s): G47.33 - OBSTRUCTIVE SLEEP APNEA ( ADULT) (PEDIATRIC) SNOMED Code(s): 50875164 Comment: prefers not to use cpap (5) Kwuqnsn-Xqvqm-Xnkdb disease Current Visit: No Status: Chronic Priority: High (6) DVT prophylaxis Current Visit: Yes Status: Acute Code(s): Z29.9 - ENCOUNTER FOR PROPHYLACTIC MEASURES, UNSPECIFIED SNOMED Code(s): 576904833 Comment: lovenox (7) Full code status Current Visit: Yes Status: Acute Code(s): Z78.9 - OTHER SPECIFIED HEALTH STATUS SNOMED Code(s): 736674485
[2019-09-13] MEDS: Atenolol TAB* 25 MG PO SCH (21:43)
[2019-09-14] MEDS: Levothyroxine TAB* 88 MCG TAB PO SCH (05:58)
[2019-09-14 06:09] LABS: Hematocrit 32 % (35-47); Hemoglobin 10.8 g/dL (12.0-16.0); Mean Corpuscular HGB Conc 34 g/dL (31-36); Mean Corpuscular Hemoglobin 32 pg (27-31); Mean Corpuscular Volume 94 fL (80-97); Mean Platelet Volume 8.9 fL (7.4-10.4); Platelet Count 293 10^3/uL (150-450); Red Blood Count 3.38 10^6 /uL (3.70-4.87); Red Cell Distribution Width 16 % (10-15); White Blood Count 4.2 10^3/uL (3.5-10.8)
[2019-09-14 06:25] LABS: Albumin 3.2 g/dL (3.2-5.2); Albumin/Globulin Ratio 1.4 (1-3); BUN/Creatinine Ratio 10.3 (8-20); C Reactive Protein 15.49 mg/L (<8.01); Calcium 8.4 mg/dL (8.6-10.3); EGFR African American 104.4 (>60); EGFR Non-African American 86.3 (>60); Globulin 2.3 g/dL (2-4); Potassium 4.2 mmol/L (3.5-5.0); Total Bilirubin 0.3 mg/dL (0.2-1.0); Total Protein 5.5 g/dL (6.4-8.9)
[2019-09-14] MEDS: Pantoprazole TAB * 40 MG TAB PO SCH (08:36)
[2019-09-14] MEDS: Lactobacillus Acidophilus* 1 TAB PO SCH (08:36)
[2019-09-14] MEDS: Torsemide TAB 10 MG PO SCH (08:36)
[2019-09-14] MEDS: Potassium Chlor TAB* 20 MEQ TAB.ER PO SCH (08:36)
[2019-09-14] MEDS: Cyanocobalamin TAB* 500 MCG PO SCH (08:36)
[2019-09-14] MEDS: Diltiazem TAB* 30 MG PO SCH (08:36)
[2019-09-14] MEDS: Enoxaparin(*) 80 MG/0.8 ML SYR SUBCUT SCH (08:37)
--- NOTE | 2019-09-14 09:43 | PN ---
Progress Note - Progress Note Date of Service: 09/14/19 Note: Surgery progress note. S: States she is feeling somewhat improved today. Little to no nausea and ABD pain. No emesis, fever, chills, chest pain, SOB. Passed a more formed BM today. Ambulating without issue. Tolerating diet well. O: Temp Pulse Resp BP Pulse Ox 98.8 F 85 16 122/87 92 09/14/19 08:25 09/14/19 08:25 09/14/19 08:25 09/14/19 08:25 09/14/19 08:25 Laboratory Last Values WBC 4.2 10^3/uL (3.5-10.8) 09/14/19 05:10 RBC 3.38 10^6 /uL (3.70-4.87) L 09/14/19 05:10 Hgb 10.8 g/dL (12.0-16.0) L 09/14/19 05:10 Hct 32 % (35-47) L 09/14/19 05:10 MCV 94 fL (80-97) 09/14/19 05:10 MCH 32 pg (27-31) H 09/14/19 05:10 MCHC 34 g/dL (31-36) 09/14/19 05:10 RDW 16 % (10-15) H 09/14/19 05:10 Plt Count 293 10^3/uL (150-450) 09/14/19 05:10 MPV 8.9 fL (7.4-10.4) 09/14/19 05:10 Neut % (Auto) 62.3 % 09/12/19 05:21 Lymph % (Auto) 26.8 % 09/12/19 05:21 [place] % (Auto) 8.2 % 09/12/19 05:21 Eos % (Auto) 1.5 % 09/12/19 05:21 Baso % (Auto) 1.2 % 09/12/19 05:21 Absolute Neuts (auto) 2.5 10^3/ul (1.5-7.7) 09/12/19 05:21 Absolute Lymphs (auto) 1.1 10^3/ul (1.0-4.8) 09/12/19 05:21 Absolute Monos (auto) 0.3 10^3/ul (0-0.8) 09/12/19 05:21 Absolute Eos (auto) 0.1 10^3/ul (0-0.6) 09/12/19 05:21 Absolute Basos (auto) 0.0 10^3/ul (0-0.2) 09/12/19 05:21 Absolute Nucleated RBC 0.0 10^3/ul 09/12/19 05:21 Nucleated RBC % 0.0 09/12/19 05:21 INR (Anticoag Therapy) 1.92 (0.82-1.09) H 09/04/19 16:56 APTT 39.6 seconds (26.0-38.0) H 09/04/19 16:56 Sodium 139 mmol/L (135-145) 09/14/19 05:10 Potassium 4.2 mmol/L (3.5-5.0) 09/14/19 05:10 Chloride 101 mmol/L (101-111) 09/14/19 05:10 Carbon Dioxide 30 mmol/L (22-32) 09/14/19 05:10 Anion Gap 8 mmol/L (2-11) 09/14/19 05:10 BUN 7 mg/dL (6-24) 09/14/19 05:10 Creatinine 0.68 mg/dL (0.51-0.95) 09/14/19 05:10 Est GFR ( Amer) 104.4 (>60) 09/14/19 05:10 Est GFR (Non-Af Amer) 86.3 (>60) 09/14/19 05:10 BUN/Creatinine Ratio 10.3 (8-20) 09/14/19 05:10 Glucose 92 mg/dL (70-100) 09/14/19 05:10 Lactic Acid 0.7 mmol/L (0.5-2.0) 09/04/19 16:56 Calcium 8.4 mg/dL (8.6-10.3) L 09/14/19 05:10 Total Bilirubin 0.30 mg/dL (0.2-1.0) 09/14/19 05:10 AST 13 U/L (13-39) 09/14/19 05:10 ALT 8 U/L (7-52) 09/14/19 05:10 Alkaline Phosphatase 50 U/L (34-104) 09/14/19 05:10 C-Reactive Protein 15.49 mg/L (<8.01) H 09/14/19 05:10 C-React Prot High Sens 30.13 mg/L (<2.00) H 09/11/19 05:22 Total Protein 5.5 g/dL (6.4-8.9) L 09/14/19 05:10 Albumin 3.2 g/dL (3.2-5.2) 09/14/19 05:10 Globulin 2.3 g/dL (2-4) 09/14/19 05:10 Albumin/Globulin Ratio 1.4 (1-3) 09/14/19 05:10 Lipase < 10 U/L (11.0-82.0) L 09/04/19 16:56 Urine Color Straw 09/04/19 19:30 Urine Appearance Clear 09/04/19 19:30 Urine pH 6.0 (5-9) 09/04/19 19:30 Ur Specific [place] 1.015 (1.010-1.030) 09/04/19 19:30 Urine Protein Negative (Negative) 09/04/19 19:30 Urine Ketones Negative (Negative) 09/04/19 19:30 Urine Blood Negative (Negative) 09/04/19 19:30 Urine Nitrate Negative (Negative) 09/04/19 19:30 Urine Bilirubin Negative (Negative) 09/04/19 19:30 Urine Urobilinogen Negative (Negative) 09/04/19 19:30 Ur Leukocyte Esterase Negative (Negative) 09/04/19 19:30 Urine Glucose Negative (Negative) 09/04/19 19:30 Intake and Output Last 24 Hours 09/12/19 09/13/19 09/14/19 09/15/19 06:59 06:59 06:59 06:59 Intake Total 340 320 375 Output Total 700 2300 500 Balance - Intake: IV Fluids 20 NS (0.9%) 20 IVPB 55 ABX - CEFTRIAXONE 55 Oral 340 320 300 Output: Urine 700 2300 500 Other: # Bowel Movements 1 1 Estimated Stool Amount Medium Small PEX General: Alert, in NAD. HEENT: PERRLA. Heart: Irregularly irregular. No murmurs, rubs, or gallups. Lungs: CTAB, no WRR. ABD: BS present. Soft, nondisteded. Mild tenderness in lower abdomen and umbilicus. No guarding or rebound tenderness. Extremities: Slight edema in LLE, none appreciated in right. Distal pulses intact bilaterally. Calves soft and nontender. Assessment and plan: 69 yo F with diverticulitis w/ microperforation. Her condition is improving. Antibiotics recently changed; once regimen solidified, she will likely be ok for discharge.
[2019-09-14 11:48] VITALS: BP 112/79
--- NOTE | 2019-09-14 12:40 | DS ---
CC: Dr. Marlin Edwards; Dr. Chen; Dr. Vasyl Falk; Dr. Jesús Bonilla* DATE OF ADMISSION: 09/04/2019. DATE OF DISCHARGE: 09/14/2019. PRIMARY CARE PHYSICIAN: Dr. Marlin Edwards. PRIMARY DIAGNOSIS: Diverticulitis. SECONDARY DIAGNOSES: Atrial fibrillation, antibiotic side effect, Charcot-Wendy - Tooth. SIGNIFICANT IMAGING DATA: CT of the abdomen and pelvis on September 03 showed sigmoid diverticulitis with microperforation, no abscess. HISTORY OF PRESENT ILLNESS/HOSPITAL COURSE: This 69-year-old woman with atrial fibrillation and recurrent diverticulitis admitted with left-sided abdominal pain, found to have recurrence of diverticulitis on imaging, as well as microperforation. She has had ten days of IV antibiotics and slowly progressed her diet and is significantly improved. The course was complicated by intolerance to Metronidazole which caused nausea and vomiting and then nausea, vomiting and malaise from Invanz. She was followed by the surgical team who recommended on intervention currently and to follow-up with them for long-term planning. She does follow with Dr. Bonilla and should see him in follow-up for colonoscopy in the setting of diverticulitis and recent onset of constipation. PHYSICAL EXAMINATION: Her exam on the day of discharge: Vital Signs: Temperature 37, heart rate 80, respiratory rate 16, blood pressure 122/87, oxygen saturation 92 percent on room air. General: She is awake and not in distress. Neurologic: She is oriented times three, follows all commands. HEENT: There is no conjunctival hemorrhage. Oropharynx without lesions. Neck: Supple without mass. Heart: Irregular and tachycardic without murmurs. Lungs: Clear to auscultation bilaterally. Abdomen: Soft, nontender, nondistended. There are bowel sounds presents. Skin: There is no rash or splinter hemorrhages. DISCHARGE DIET: Low fiber diet to slowly advance to regular diet. DISCHARGE ACTIVITY: Resume normal activity as tolerated. FOLLOW-UP APPOINTMENTS: Dr. Anselmo Chen, Dr. Jesús Bonilla, Dr. Vasyl Falk. DISCHARGE MEDICATIONS: 1. Torsemide 10 mg by mouth daily as needed. 2. Psyllium/Aspartame powder daily. 3. Potassium 40 mEq at bedtime. 4. Levothyroxine 88 mcg each morning. 5. Diltiazem 30 mg by mouth daily. 6. Diclofenac topical twice a day as needed. 7. Vitamin B12 1,000 mcg by mouth daily. 8. Vitamin D3 50,000 units by mouth monthly. 9. Atenolol 25 mg by mouth daily. 10. Eliquis 5 mg by mouth twice daily. 11. Pantoprazole 40 mg by mouth daily. 12. Calcium Carbonate every 4 hours as needed. 13. Cefuroxime 500 mg by mouth twice daily for 10 more days. ISSUES FOR FOLLOW-UP: 1. General Surgery: Follow-up for long-term planning for recurrent diverticulitis. 2. Gastroenterology: Follow-up for a question of colonoscopy in the setting of recurrent diverticulitis. 3. Infectious Disease: Follow-up for antibiotic management. 4. Follow-up with Dr. Edwards, primary physician, in the next week. [id number]/CPS #: [id number] MTDD
[2019-09-14] MEDS: cefTRIAXone(*) 1 GM in NS 0.9% 50 ML* 50 ML IVPB SCH (15:06)
== END 2019-09-14 15:23 | disposition home health service (06) | DRG 392 ==
LOC: ED 16:46 → SSU 20:41
PROVIDERS: ADMIT Internal Medicine; ATTEND Internal Medicine
DX: K57.20 Diverticulitis of large intestine with perforation and abscess without bleeding (principal); I48.20 Chronic atrial fibrillation, unspecified; G60.0 Hereditary motor and sensory neuropathy; R11.2 Nausea with vomiting, unspecified; T37.8X5A Adverse effect of other specified systemic anti-infectives and antiparasitics, initial encounter; Y92.239 Unspecified place in hospital as the place of occurrence of the external cause; R53.81 Other malaise; M21.372 Foot drop, left foot; M21.371 Foot drop, right foot; I05.9 Rheumatic mitral valve disease, unspecified; G47.33 Obstructive sleep apnea (adult) (pediatric); E87.6 Hypokalemia; R51 Headache; R19.7 Diarrhea, unspecified; I50.9 Heart failure, unspecified; I10 Essential (primary) hypertension; F32.9 Major depressive disorder, single episode, unspecified; G62.9 Polyneuropathy, unspecified; E66.9 Obesity, unspecified; T36.1X5A Adverse effect of cephalosporins and other beta-lactam antibiotics, initial encounter; K59.00 Constipation, unspecified; E89.0 Postprocedural hypothyroidism; Z90.49 Acquired absence of other specified parts of digestive tract; Z87.19 Personal history of other diseases of the digestive system; Z88.1 Allergy status to other antibiotic agents; Z88.5 Allergy status to narcotic agent; Z88.0 Allergy status to penicillin; Z88.8 Allergy status to other drugs, medicaments and biological substances; Z79.899 Other long term (current) drug therapy; Z79.890 Hormone replacement therapy; Z79.01 Long term (current) use of anticoagulants; Z88.2 Allergy status to sulfonamides; Z91.048 Other nonmedicinal substance allergy status; Z85.828 Personal history of other malignant neoplasm of skin; Z87.891 Personal history of nicotine dependence; Z72.89 Other problems related to lifestyle; Z86.010 Personal history of colon polyps; Z99.89 Dependence on other enabling machines and devices; Z68.31 Body mass index [BMI] 31.0-31.9, adult
CPT/HCPCS: 36415; 74177; 80048; 80053; 81003; 83605; 83690; 85025; 85027; 85610; 85730; 86140; 86141; 87040; 93005; 96365; 96375; 99284; A9270-GY; J0696; J1335; J1650; J2270; J2405; Q9967

== ENCOUNTER 2019-11-13 05:40 | Inpatient (IN) ==
[~2019-11-13 05:40] MED LIST changes: -Buffered Lidocaine 0.9% SYRIN* 5 ML/SYR SYRINGE INTRADERM ONE; +ERTApenem(*) 1 GM in NS 0.9% 50 ML 50 ML IVPB SCH; -Lactated Ringers 1000 ML Bag* 1,000 ML IV SCH
[2019-11-13] MEDS ORDERED: Lactated Ringers 1000 ml BAG 1,000 ML IV SCH (06:00)
[2019-11-13] MEDS ORDERED: Heparin 5000 UNITS/ML VIAL(*) 1 ml vial ONE (06:12)
[2019-11-13] MEDS ORDERED: Midazolam 2 mg/2 ml VIAL 1 mg/ml 2 ml VIAL (2 mg) ONE (07:09)
[2019-11-13] MEDS ORDERED: fentaNYL 100 mcg/2 ml 50 MCG/ML VIAL ONE ×2 (07:09→07:15)
[2019-11-13] MEDS ORDERED: Propofol 10 MG/ML 20 ML BTL ONE (07:09)
[2019-11-13] MEDS ORDERED: Rocuronium 50 mg VIAL 10 mg/ml 5 ml VIAL (50 mg) ONE ×3 (07:09→09:58)
[2019-11-13] MEDS ORDERED: Sevoflurane BOTTLE ONE (07:11)
[2019-11-13] MEDS ORDERED: Bupivacaine 0.5% SDV PF 30ML VIAL ONE (07:12)
[2019-11-13] MEDS ORDERED: HYDROmorphone 1 MG/1 ML SYRINGE ONE (09:09)
[2019-11-13] MEDS ORDERED: Morphine 10 MG/ML VIAL (1 ml) ONE (09:11)
[2019-11-13] MEDS ORDERED: Metoprolol Tartrate 5 mg VIAL 5 ml VIAL (1 mg/ml) ONE (09:21)
[2019-11-13] MEDS ORDERED: diPHENhydraMINE IV 50 MG/ML 1 ml VIAL (BENADRYL) IV PRN ×2 (10:22→13:41)
[2019-11-13] MEDS ORDERED: Morphine 4 MG/ML VIAL (1 ml) IV PRN ×2 (10:22→12:16)
[2019-11-13] MEDS ORDERED: Prochlorperazine 5 mg/ml 2 ml VIAL (10 mg) IV PRN ×2 (10:22→13:41)
[2019-11-13] MEDS ORDERED: Naloxone 0.4 mg VIAL 0.4 mg/ml 1 ml VIAL IV PRN ×2 (10:22→13:41)
[2019-11-13] MEDS ORDERED: Potassium Chloride IV 20 MEQ in Lactated Ringers 1000 ml BAG 1,000 ML IVPB SCH (12:00)
[2019-11-13] MEDS ORDERED: oxyCODONE/Acetamin 5/325 mg TAB PO PRN (12:15)
[2019-11-13] MEDS ORDERED: Ondansetron 4 mg VIAL 2 MG/ML 2 ml VIAL IV PRN ×2 (12:19→13:41)
[2019-11-13] MEDS ORDERED: Morphine 4 MG/ML VIAL (1 ml) ONE (12:22)
[2019-11-13] MEDS ORDERED: Heparin 5000 UNITS/ML VIAL(*) 1 ml vial SUBCUT SCH (14:00)
[2019-11-13] MEDS: oxyCODONE/Acetamin 5/325 mg TAB PO PRN ×2 (14:55→20:43)
[2019-11-13] MEDS: Potassium Chloride IV 20 MEQ in Lactated Ringers 1000 ml BAG 1,000 ML IVPB SCH (16:16)
[2019-11-13] MEDS: Heparin 5000 UNITS/ML VIAL(*) 1 ml vial SUBCUT SCH ×2 (16:26→22:11)
[2019-11-14] MEDS: Potassium Chloride IV 20 MEQ in Lactated Ringers 1000 ml BAG 1,000 ML IVPB SCH ×3 (05:03→21:49)
[2019-11-14] MEDS: oxyCODONE/Acetamin 5/325 mg TAB PO PRN ×4 (05:04→20:27)
[2019-11-14] MEDS: Heparin 5000 UNITS/ML VIAL(*) 1 ml vial SUBCUT SCH ×3 (05:45→21:47)
[2019-11-14 07:15] LABS: Hematocrit 38 % (35-47); Hemoglobin 12.9 g/dL (12.0-16.0); Mean Corpuscular HGB Conc 34 g/dL (31-36); Mean Corpuscular Hemoglobin 33 pg (27-31); Mean Corpuscular Volume 98 fL (80-97); Mean Platelet Volume 8.7 fL (7.4-10.4); Platelet Count 171 10^3/uL (150-450); Red Blood Count 3.91 10^6 /uL (3.70-4.87); Red Cell Distribution Width 15 % (10-15); White Blood Count 9.5 10^3/uL (3.5-10.8)
[2019-11-14 07:27] LABS: CO2 Carbon Dioxide 22 mmol/L (22-32); Calcium 9.2 mg/dL (8.6-10.3); Chloride 100 mmol/L (101-111); Magnesium 1.9 mg/dL (1.9-2.7); Sodium 132 mmol/L (135-145)
[2019-11-14 07:33] LABS: BUN/Creatinine Ratio 16.9 (8-20); Blood Urea Nitrogen 11 mg/dL (6-24); EGFR Non-African American 90.9 (>60); Glucose 103 mg/dL (70-100)
[2019-11-14 08:34] LABS: Anion Gap 10 mmol/L (2-11)
[2019-11-14] MEDS ORDERED: Polyethylene Glycol 3350 17 GM PACKET PO SCH (09:00)
[2019-11-14] MEDS: Polyethylene Glycol 3350 17 GM PACKET PO SCH (09:32)
[2019-11-15] MEDS: oxyCODONE/Acetamin 5/325 mg TAB PO PRN ×5 (01:47→22:20)
[2019-11-15] MEDS: Potassium Chloride IV 20 MEQ in Lactated Ringers 1000 ml BAG 1,000 ML IVPB SCH ×2 (01:48→13:59)
[2019-11-15] MEDS: Heparin 5000 UNITS/ML VIAL(*) 1 ml vial SUBCUT SCH ×3 (05:48→22:22)
[2019-11-15] MEDS: Polyethylene Glycol 3350 17 GM PACKET PO SCH (09:10)
[2019-11-15 10:09] LABS: BUN/Creatinine Ratio 11.8 (8-20); Calcium 8.5 mg/dL (8.6-10.3); EGFR African American 104.4 (>60); EGFR Non-African American 86.3 (>60); Magnesium 1.7 mg/dL (1.9-2.7); Potassium 4.3 mmol/L (3.5-5.0)
[2019-11-15] MEDS ORDERED: Magnesium Sulfate 2 gm BAG 2 GM/50 ML BAG IVPB ONE (15:22)
[2019-11-16] MEDS: Potassium Chloride IV 20 MEQ in Lactated Ringers 1000 ml BAG 1,000 ML IVPB SCH ×2 (01:55→07:38)
[2019-11-16] MEDS: Heparin 5000 UNITS/ML VIAL(*) 1 ml vial SUBCUT SCH (06:09)
[2019-11-16] MEDS: oxyCODONE/Acetamin 5/325 mg TAB PO PRN ×4 (06:14→21:50)
[2019-11-16 07:32] LABS: BUN/Creatinine Ratio 8.5 (8-20); Calcium 8.5 mg/dL (8.6-10.3); EGFR Non-African American 101.7 (>60); Magnesium 2.1 mg/dL (1.9-2.7); Potassium 4.5 mmol/L (3.5-5.0)
[2019-11-16 08:51] LABS: Hematocrit 33 % (35-47); Hemoglobin 11.2 g/dL (12.0-16.0); Mean Corpuscular HGB Conc 34 g/dL (31-36); Mean Corpuscular Hemoglobin 32 pg (27-31); Mean Corpuscular Volume 95 fL (80-97); Mean Platelet Volume 9.3 fL (7.4-10.4); Platelet Count 150 10^3/uL (150-450); Red Blood Count 3.46 10^6 /uL (3.70-4.87); Red Cell Distribution Width 14 % (10-15); White Blood Count 7.7 10^3/uL (3.5-10.8)
[2019-11-16] MEDS: Polyethylene Glycol 3350 17 GM PACKET PO SCH ×2 (09:14→17:01)
[2019-11-16 19:44] LABS: INR 1.06 (0.82-1.09)
[2019-11-17] MEDS: oxyCODONE/Acetamin 5/325 mg TAB PO PRN ×3 (06:43→18:52)
[2019-11-17] MEDS: Polyethylene Glycol 3350 17 GM PACKET PO SCH (08:04)
[2019-11-17 10:43] LABS: Hematocrit 32 % (35-47)
[2019-11-18] MEDS: oxyCODONE/Acetamin 5/325 mg TAB PO PRN ×3 (04:05→16:00)
[2019-11-18 08:45] LABS: BUN/Creatinine Ratio 13.2 (8-20); Calcium 8.6 mg/dL (8.6-10.3); EGFR African American 104.4 (>60); EGFR Non-African American 86.3 (>60); Magnesium 1.8 mg/dL (1.9-2.7); Potassium 3.8 mmol/L (3.5-5.0)
[2019-11-18] MEDS: Polyethylene Glycol 3350 17 GM PACKET PO SCH (09:12)
[2019-11-18] MEDS ORDERED: Magnesium Sulfate IV 3 GM in NS 0.9% 100 ml BAG 100 ML IVPB ONE (09:19)
[2019-11-18] MEDS ORDERED: Potassium Chlor 20 meq TAB.ER PO ONE (09:19)
[2019-11-18 09:29] LABS: TSH (Thyroid Stimulating Horm) 0.81 mcIU/mL (0.34-5.60)
[2019-11-18] MEDS ORDERED: Potassium Chloride LIQUID 20 MEQ/15 ML LIQUID PO ONE (11:00)
[2019-11-19] MEDS: oxyCODONE/Acetamin 5/325 mg TAB PO PRN ×2 (00:21→10:46)
[2019-11-19] MEDS: Polyethylene Glycol 3350 17 GM PACKET PO SCH (08:15)
[2019-11-19 11:09] VITALS: BP 115/69
== END 2019-11-19 12:20 | disposition home or self-care (01) | DRG 330 ==
LOC: AA 05:40 → EDSTATUS 07:30 → SSU 11:45 → UNDODISIN 13:21
PROVIDERS: ADMIT Surgery; ATTEND Surgery